=== PATIENT | male | born 1950 | race Two or more races ===

== ENCOUNTER 2017-10-08 22:16 | Inpatient (IN) | payer OTHER ==
[~2017-10-08] VITALS: Ht 177.8 cm; Wt 113.4 kg
[~2017-10-08 22:16] MED LIST: ALPRAZOLAM1 MG ORAL; METOPROLOL TART25 MG ORAL; METOPROLOL TART50 M1 ORAL; NIFEDIPINE XL30 M1 ORAL; PROTONIX40 MG ORAL; SIMVASTATIN5 MG ORAL; THEOPHYLLINE400 MG PO
[2017-10-08 22:40] VITALS: BP 120/81
[2017-10-08] MEDS ORDERED: Miralax 17gm pkt ORAL PRN (22:45)
[2017-10-08] MEDS ORDERED: Morphine Sulfate 2mg/ml Inj IVP PRN (22:45)
[2017-10-08] MEDS ORDERED: Albuterol/Ipratropium 3ml neb HHN PRN (22:45)
[2017-10-08] MEDS ORDERED: dilTIAZem HCl 25mg/5ml Inj IV PRN (22:45)
[2017-10-08] MEDS ORDERED: Ketorolac 30mg Inj IV PRN (22:45)
[2017-10-08] MEDS ORDERED: Solu-MEDROL 125mg Inj IVP ONE (22:45)
[2017-10-08] MEDS ORDERED: Nitroglycerin Subl 0.4mg tab SL PRN (22:45)
[2017-10-08] MEDS ORDERED: Enalaprilat 2.5mg/2ml Inj IV PRN (22:45)
--- NOTE | 2017-10-08 22:49 | Emergency Room Report ---
History of Present Illness General Chief Complaint: Dyspnea/Respdistress Source: Patient Present Illness HPI 67-year-old male with history of asthma, retention, hyperlipidemia p/w SOB for and week but worse in the last 2 days. SOB occurs both at rest and on exertion. + non productive cough. Denies chest pain. Patient has been using albuterol inhaler at home but cannot quantify the amount. Pt states that this episode is similar to other episodes of asthma exacerbation. Last time he was admitted was one year ago Denies fever, chills. Denies sick contacts or recent travel. Patient denies history of ICU admissions Allergies: Coded Allergies: No Known Allergies (Unverified , 02/28/16) Patient History Past Medical History: see triage record Past Surgical History: none Pertinent Family History: none Reviewed Nursing Documentation: PMH: Agreed; PSxH: Agreed Nursing Documentation-PMH Hx Cardiac Problems: Yes - heart attack 2012 Hx Hypertension: Yes Hx Asthma: Yes Hx Cancer: No Hx Gastrointestinal Problems: No Hx Neurological Problems: Yes Hx Cerebrovascular Accident: Yes - 8 YEARS AGO Review of Systems All Other Systems: negative except mentioned in HPI Physical Exam Vital Signs Date Time Temp Pulse Resp B/P (MAP) Pulse Ox O2 Delivery O2 Flow Rate FiO2 10/08/17 22:20 85 24 129/61 85 Room Air Sp02 EP Interpretation: reviewed, normal General Appearance: alert, GCS 15, non-toxic, moderate distress Head: normocephalic, atraumatic Eyes: bilateral eye normal inspection, bilateral eye PERRL, bilateral eye EOMI ENT: normal ENT inspection, normal pharynx, normal voice, moist mucus membranes Neck: normal inspection, full range of motion, supple Respiratory: respiratory distress, speaking full sentences, wheezing, expiration Cardiovascular #1: normal inspection, regular rate, rhythm, no edema, normal capillary refill Cardiovascular #2: 2+ radial (R), 2+ radial (L) Gastrointestinal: normal inspection, non tender, soft, non-distended, no guarding Genitourinary: no CVA tenderness Musculoskeletal: normal inspection, back normal, normal range of motion, non- tender Neurologic: normal inspection, alert, oriented x3, responsive, motor strength/ tone normal, sensory intact, normal gait, speech normal Psychiatric: normal inspection, judgement/insight normal, memory normal Skin: normal inspection, normal color, no rash, warm/dry, well hydrated, normal turgor Procedures Critical Care Time Critical Care Time 40 minutes of CC time 67-year-old male with shortness of breath Asthma exacerbation versus CHF versus ACS VS hypoxic and tachypneic PLAN: IV access, labs, nebulizer steroids magnesium Anticipate admission to Tele vs. A[facility]ENIO CC time also includes review of labs, review of EMR, discussion with family and paperwork from SNF, d/w hospitalist CC could include dosing of pressors, additional Abx CC time does not include procedures Medical Decision Making Diagnostic Impression: Primary Impression: Asthma exacerbation Additional Impressions: Pneumonia CHF exacerbation ER Course 67-year-old male with history of asthma p/w SOB DDX: Asthma exacerbation, pneumonia, upper respiratory infection/viral syndrome, ACS , CHF Plan: Labs, Combivent nebulizer treatment x 3, steroids, EKG, CXR Magnesium sulfate ER Course: Patient's respiratory status has been closely monitored in the ED. Patient has been treated with combivent x 3, solumedrol IV mag sulfate 40MG lasix Repeat lung auscultation reveals persistent wheezing although improved abx given for pneumonia Disposition: Patient will be admitted to telemetry D/W hospitalist Dr Holden Please note that this Emergency Department Report was dictated using Vivart[employer]wait[employer] waitress technology software, occasionally this can lead to erroneous entry secondary to interpretation by the dictation equipment. EKG Diagnostic Results EP Interpretation: Yes Rate: normal Rhythm: NSR ST Segments: Right bundle-branch block, multiple PVCs, no acute ST-T changes ASA given to patient: No Rhythm Strip EP Interpretation: Yes Rate: 70 Rhythm: NSR, no PVCs, no ectopy Chest X-ray CXR: Ordered: Yes 1 view Indication: SOB EP interpretation: Yes Interpretation:cardiomegaly, possible R sided infiltrate Impression: cardiomegaly, possible R sided infiltrate Electronically signed by Abraham Mars MD Laboratory Tests Test 10/08/17 23:00 White Blood Count 18.3 K/UL (4.8-10.8) H Red Blood Count 4.93 M/UL (4.70-6.10) Hemoglobin 13.7 G/DL (14.2-18.0) L Hematocrit 40.8 % (42.0-52.0) L Mean Corpuscular Volume 83 FL (80-99) Mean Corpuscular Hemoglobin 27.7 PG (27.0-31.0) Mean Corpuscular Hemoglobin Concent 33.5 G/DL (32.0-36.0) Red Cell Distribution Width 13.8 % (11.6-14.8) Platelet Count 224 K/UL (150-450) Mean Platelet Volume 8.4 FL (6.5-10.1) Neutrophils (%) (Auto) % (45.0-75.0) Lymphocytes (%) (Auto) % (20.0-45.0) Monocytes (%) (Auto) % (1.0-10.0) Eosinophils (%) (Auto) % (0.0-3.0) Basophils (%) (Auto) % (0.0-2.0) Differential Total Cells Counted 100 Neutrophils % (Manual) 8 % (45-75) L Lymphocytes % (Manual) 16 % (20-45) L Monocytes % (Manual) 73 % (1-10) H Eosinophils % (Manual) 0 % (0-3) Basophils % (Manual) 0 % (0-2) Band Neutrophils 3 % (0-8) Platelet Estimate Adequate Platelet Morphology Normal Sodium Level 140 MMOL/L (136-145) Potassium Level 3.6 MMOL/L (3.5-5.1) Chloride Level 105 MMOL/L (98-107) Carbon Dioxide Level 25 MMOL/L (21-32) Anion Gap 10 mmol/L (5-15) Blood Urea Nitrogen 22 mg/dL (7-18) H Creatinine 1.4 MG/DL (0.55-1.30) H Estimate Glomerular Filtration Rate 50.2 mL/min (>60) Glucose Level 100 MG/DL (74-106) Calcium Level 8.9 MG/DL (8.5-10.1) Total Bilirubin 0.8 MG/DL (0.2-1.0) Aspartate Amino Transferase (AST) 16 U/L (15-37) Alanine Aminotransferase (ALT) 17 U/L (12-78) Alkaline Phosphatase 124 U/L (46-116) H Troponin I 0.002 ng/mL (0.000-0.056) Pro-B-Type Natriuretic Peptide 4725 pg/mL (0-125) H Total Protein 8.3 G/DL (6.4-8.2) H Albumin 3.8 G/DL (3.4-5.0) Globulin 4.5 g/dL Albumin/Globulin Ratio 0.8 (1.0-2.7) L Last Vital Signs Date Time Temp Pulse Resp B/P (MAP) Pulse Ox O2 Delivery O2 Flow Rate FiO2 10/08/17 22:20 85 24 129/61 85 Room Air Disposition: ADMITTED INPATIENT Condition: Serious RetinoAbraham M.D. Oct 08, 2017 22:49
[2017-10-08] MEDS: Ipratropium 0.02% Inh Soln 2.5ml UD HHN SCH ×3 (22:54→23:28)
[2017-10-08] MEDS: Albuterol ud Inhalation HHN SCH ×3 (22:54→23:28)
[2017-10-08] MEDS ORDERED: BUMETANIDE1 MG ORAL (23:27)
[2017-10-08] MEDS ORDERED: LISINOPRIL2.5 MG ORAL (23:27)
[2017-10-08] MEDS ORDERED: VITAMIN D1000 UNI1 ORAL (23:27)
[2017-10-08] MEDS ORDERED: AMLODIPINE BES2.5 MG ORAL (23:27)
[2017-10-08] MEDS ORDERED: ASPIR 8181 MG ORAL (23:27)
[2017-10-08] MEDS ORDERED: CLOPIDOGREL75 MG ORAL (23:27)
[2017-10-08] MEDS ORDERED: ATORVASTATIN CA20 MG ORAL (23:27)
[2017-10-08] MEDS ORDERED: ALBUTEROL2.5 MG/3 M INH (23:27)
[2017-10-08 23:41] LABS: HEMATOCRIT 40.8 % (42.0-52.0); HEMOGLOBIN 13.7 G/DL (14.2-18.0); MEAN CORPUSCULAR VOLUME 83 FL (80-99); PLATELET COUNT 224 K/UL (150-450); RED BLOOD COUNT 4.93 M/UL (4.70-6.10); RED CELL DISTRIBUTION WIDTH 13.8 % (11.6-14.8); WHITE BLOOD COUNT 18.3 K/UL (4.8-10.8)
[2017-10-09] VITALS (9 sets, daily range): BP systolic 116–145; BP diastolic 41–89
[2017-10-09 00:05] LABS: ANION GAP 10 mmol/L (5-15); BLOOD UREA NITROGEN 22 mg/dL (7-18); CALCIUM 8.9 MG/DL (8.5-10.1); CARBON DIOXIDE 25 MMOL/L (21-32); CHLORIDE 105 MMOL/L (98-107); CREATININE 1.4 MG/DL (0.55-1.30); POTASSIUM 3.6 MMOL/L (3.5-5.1); SODIUM 140 MMOL/L (136-145)
[2017-10-09 00:18] LABS: ALANINE AMINOTRANSFERASE 17 U/L (12-78); ALBUMIN 3.8 G/DL (3.4-5.0); ALBUMIN/GLOBULIN RATIO 0.8 (1.0-2.7); ALKALINE PHOSPHATASE 124 U/L (46-116); ASPARTATE AMINO TRANSFERASE 16 U/L (15-37); BILIRUBIN,TOTAL 0.8 MG/DL (0.2-1.0)
[2017-10-09 05:52] LABS: APPEARANCE,URINE CLEAR; BILIRUBIN, URINE NEGATIVE (NEGATIVE); COLOR,URINE PALE YELLOW; GLUCOSE, URINE (UA) NEGATIVE (NEGATIVE); KETONES,URINE NEGATIVE (NEGATIVE); LEUKOCYTE ESTERASE ,URINE NEGATIVE (NEGATIVE); NITRITE,URINE NEGATIVE (NEGATIVE); PH,URINE 6 (4.5-8.0); PROTEIN,URINE 2+ (NEGATIVE); UROBILINOGEN,URINE NORMAL MG/DL (0.0-1.0)
[2017-10-09] MEDS ORDERED: Metoprolol 25mg tab ORAL SCH (06:30)
[2017-10-09] MEDS ORDERED: Heparin 5000 units/ml inj SUBQ SCH ×2 (09:00→21:00)
[2017-10-09] MEDS ORDERED: Aspirin Baby 81mg ORAL SCH (09:00)
--- NOTE | 2017-10-09 11:20 | Diagnostic Imaging Report ---
Indication: Shortness of breath Technique: One view of the chest Comparison: 02/28/2016 Findings: Heart is enlarged. There is generalized mild interstitial prominence. Previously demonstrated right basilar opacity is not evident currently. The pleural spaces are clear. No focal airspace consolidation Impression: Cardiomegaly Mild interstitial prominence, could indicate mild interstitial congestion
[2017-10-09 12:21] LABS: HEMATOCRIT 39.9 % (42.0-52.0); MEAN CORPUSCULAR VOLUME 83 FL (80-99); PLATELET COUNT 219 K/UL (150-450); RED BLOOD COUNT 4.83 M/UL (4.70-6.10); RED CELL DISTRIBUTION WIDTH 13.6 % (11.6-14.8)
--- NOTE | 2017-10-09 12:23 | Cardiology Report ---
APPROVED REPORT EXAM: Two-dimensional and M-mode echocardiogram with Doppler and color Doppler. INDICATION LV FUNCTION M-Mode DIMENSIONS IVSd1.9 (0.7-1.1cm)Left Atrium (MM)3.6 (1.6-4.0cm) LVDd6.3 (3.5-5.6cm)Aortic Root3.8 (2.0-3.7cm) PWd1.9 (0.7-1.1cm)Aortic Cusp Exc.1.4 (1.5-2.0cm) IVSs2.0 cm LVDs4.4 (2.5-4.0cm) PWs2.0 cm Technically difficult study due to poor acoustical windows and pts breathing . Left ventricular ejection fraction estimated to be 55-60%. No evidence of left ventricular hypertrophy. No evidence of pericardial effusion. Mild bi- atrial enlargement. Right cardiac chamber sizes are within normal limits. Focal aortic valve sclerosis with reduced cusp excursion. Thickened mitral valve leaflets with normal excursion. Mitral annulus and aortic root calcification. Pulmonic valve not well visualized. Normal tricuspid valve structure. IVC dilated at size 3.0 with slightly physiologic collapse. suggestive of increased RA pressure. A color flow and spectral Doppler study was performed and revealed: Mild aortic regurgitation. Peak aortic valve gradient of 25 mm Hg and a mean of 10 mmHg. Aortic valve area 0.9cm2 calculated by continuity equation. Mild to moderate mitral regurgitation . Left ventricular diastolic function can not determined due to arrhythmia . Trace tricuspid regurgitation. Tricuspid systolic velocities suggests peak right ventricular systolic pressure of 20 mmHg. No Pulmonic regurgitation present.
[2017-10-09 12:32] LABS: INR 1.2 (0.9-1.1)
[2017-10-09 12:43] LABS: CHOLESTEROL 103 MG/DL (< 200); HDL CHOLESTEROL 42 MG/DL (40-60); TRIGLYCERIDES 30 MG/DL (30-150)
--- NOTE | 2017-10-09 13:29 | Consultation ---
History of Present Illness General Date patient seen: Oct 09, 2017 Chief Complaint: Dyspnea/Respdistress Present Illness HPI 67-year-old male with history of asthma, COPD, HTN, presented to [facility] with CC of SOB for a week but worse in the last 2 days. SOB occurs both at rest and on exertion. + non productive cough. Denies chest pain. His CXR showed only cardiomegaly and mild interstitial edema. He is admitted to telemetry for further management. Allergies: Coded Allergies: No Known Allergies (Unverified , 02/28/16) Medication History Scheduled Amlodipine Besylate* (Amlodipine Besylate*), 2.5 MG ORAL DAILY, (Reported) Aspirin* (Aspir 81*), 81 MG ORAL DAILY, (Reported) Atorvastatin Calcium* (Atorvastatin Calcium*), 20 MG ORAL BEDTIME, (Reported) Bumetanide* (Bumetanide*), 1 MG ORAL DAILY, (Reported) Cholecalciferol (Vitamin D3)* (Vitamin D*), 5,000 UNITS ORAL DAILY, (Reported) Clopidogrel* (Clopidogrel*), 75 MG ORAL DAILY, (Reported) Lisinopril* (Lisinopril*), 2.5 MG ORAL DAILY, (Reported) Metoprolol Tartrate* (Metoprolol Tartrate*), 100 MG ORAL ACBREAKFAST, (Reported) Nifedipine Xl* (Nifedipine Xl*), 30 MG ORAL BEDTIME, (Reported) Pantoprazole* (Protonix*), 40 MG ORAL DAILY, (Reported) Simvastatin (Zocor), 80 MG ORAL BEDTIME, (Reported) Scheduled PRN Albuterol Sulfate* (Albuterol Sulfate Hhn*), 3 ML INH Q4H PRN for Shortness of Breath, (Reported) Alprazolam* (Xanax*), 1 MG ORAL BEDTIME PRN for Insomnia, (Reported) Discontinued Medications Metoprolol Tartrate* (Metoprolol Tartrate*), 50 MG ORAL BEDTIME, (Reported) Discontinued Reason: Medication dose changed Nifedipine Xl* (Nifedipine Xl*), 60 MG ORAL ACBREAKFAST, (Reported) Discontinued Reason: Medication dose changed Theophylline Anhydrous (Theophylline), 300 PO BID, (Reported) Discontinued Reason: MD discontinued med Patient History Healthcare decision maker SELF Resuscitation status Full Code Advanced Directive on File Past Medical/Surgical History Past Medical/Surgical History: (1) CAD (coronary artery disease) (2) HTN (hypertension) (3) COPD (chronic obstructive pulmonary disease) Review of Systems All Other Systems: negative except mentioned in HPI Physical Exam General Appearance: WD/WN Lines, tubes and drains: peripheral HEENT: normocephalic, atraumatic Neck: non-tender, normal alignment, supple Respiratory/Chest: chest wall non-tender, lungs clear, normal breath sounds Cardiovascular/Chest: normal peripheral pulses, normal rate, regular rhythm Abdomen: normal bowel sounds, non tender Genitourinary/Rectal: normal genital exam, normal rectal exam Extremities: normal range of motion, non-tender Skin Exam: normal pigmentation Neurologic: documentation writer II-XII grossly normal Last 24 Hour Vital Signs Date Time Temp Pulse Resp B/P (MAP) Pulse Ox O2 Delivery O2 Flow Rate FiO2 10/09/17 08:49 88 20 Nasal Cannula 3.0 10/09/17 08:00 68 10/09/17 08:00 97.7 69 18 116/41 93 Nasal Cannula 2.0 97.7 10/09/17 06:52 86 135/58 10/09/17 04:00 86 10/09/17 04:00 97.5 71 21 121/89 95 Nasal Cannula 2.0 97.5 10/09/17 03:20 84 10/09/17 02:45 98.2 84 29 125/74 96 Room Air 98.2 10/09/17 02:35 97.7 94 24 125/66 96 Nasal Cannula 2.0 97.7 10/09/17 02:30 98.2 84 29 125/74 96 Room Air 98.2 10/09/17 01:05 86 25 Room Air 10/09/17 01:00 98.1 86 25 131/72 97 Room Air 98.1 10/08/17 23:48 86 22 98 10/08/17 23:31 80 20 98 Nasal Cannula 3.0 32 10/08/17 23:29 80 20 98 Simple Mask 3.0 32 10/08/17 23:15 78 19 97 Nasal Cannula 3.0 32 10/08/17 23:13 73 18 98 Simple Mask 10/08/17 23:11 32 10/08/17 23:01 32 10/08/17 23:01 73 18 Nasal Cannula 3.0 32 4/5/18 23:01 73 18 94 Nasal Cannula 3.0 32 10/08/17 22:40 98.0 88 26 120/81 87 Non-Rebreather 15.0 98.0 10/08/17 22:40 88 26 Non-Rebreather 15.0 10/08/17 22:20 85 24 129/61 85 Room Air Intake and Output 10/08/17 10/09/17 19:00 07:00 Intake Total 100 ml Output Total 600 ml Balance -500 ml Intake IV Total 100 ml Output Urine Total 600 ml Laboratory Tests Test 10/08/17 23:00 10/09/17 02:45 10/09/17 12:00 White Blood Count 18.3 K/UL (4.8-10.8) H 20.0 K/UL (4.8-10.8) H Red Blood Count 4.93 M/UL (4.70-6.10) 4.83 M/UL (4.70-6.10) Hemoglobin 13.7 G/DL (14.2-18.0) L 13.0 G/DL (14.2-18.0) L Hematocrit 40.8 % (42.0-52.0) L 39.9 % (42.0-52.0) L Mean Corpuscular Volume 83 FL (80-99) 83 FL (80-99) Mean Corpuscular Hemoglobin 27.7 PG (27.0-31.0) 26.9 PG (27.0-31.0) L Mean Corpuscular Hemoglobin Concent 33.5 G/DL (32.0-36.0) 32.5 G/DL (32.0-36.0) Red Cell Distribution Width 13.8 % (11.6-14.8) 13.6 % (11.6-14.8) Platelet Count 224 K/UL (150-450) 219 K/UL (150-450) Mean Platelet Volume 8.4 FL (6.5-10.1) 9.1 FL (6.5-10.1) Neutrophils (%) (Auto) % (45.0-75.0) % (45.0-75.0) Lymphocytes (%) (Auto) % (20.0-45.0) % (20.0-45.0) Monocytes (%) (Auto) % (1.0-10.0) % (1.0-10.0) Eosinophils (%) (Auto) % (0.0-3.0) % (0.0-3.0) Basophils (%) (Auto) % (0.0-2.0) % (0.0-2.0) Differential Total Cells Counted 100 100 Neutrophils % (Manual) 8 % (45-75) L 87 % (45-75) H Lymphocytes % (Manual) 16 % (20-45) L 9 % (20-45) L Monocytes % (Manual) 73 % (1-10) H 4 % (1-10) Eosinophils % (Manual) 0 % (0-3) 0 % (0-3) Basophils % (Manual) 0 % (0-2) 0 % (0-2) Band Neutrophils 3 % (0-8) 0 % (0-8) Platelet Estimate Adequate Adequate Platelet Morphology Normal Normal Sodium Level 140 MMOL/L (136-145) Potassium Level 3.6 MMOL/L (3.5-5.1) Chloride Level 105 MMOL/L (98-107) Carbon Dioxide Level 25 MMOL/L (21-32) Anion Gap 10 mmol/L (5-15) Blood Urea Nitrogen 22 mg/dL (7-18) H Creatinine 1.4 MG/DL (0.55-1.30) H Estimat Glomerular Filtration Rate 50.2 mL/min (>60) Glucose Level 100 MG/DL (74-106) Calcium Level 8.9 MG/DL (8.5-10.1) Total Bilirubin 0.8 MG/DL (0.2-1.0) Aspartate Amino Transf (AST/SGOT) 16 U/L (15-37) Alanine Aminotransferase (ALT/SGPT) 17 U/L (12-78) Alkaline Phosphatase 124 U/L (46-116) H Troponin I 0.002 ng/mL (0.000-0.056) Pro-B-Type Natriuretic Peptide 4725 pg/mL (0-125) H Total Protein 8.3 G/DL (6.4-8.2) H Albumin 3.8 G/DL (3.4-5.0) Globulin 4.5 g/dL Albumin/Globulin Ratio 0.8 (1.0-2.7) L Urine Color Pale yellow Urine Appearance Clear Urine pH 6 (4.5-8.0) Urine Specific [place] 1.010 (1.005-1.035) Urine Protein 2+ (NEGATIVE) H Urine Glucose (UA) Negative (NEGATIVE) Urine Ketones Negative (NEGATIVE) Urine Occult Blood Negative (NEGATIVE) Urine Nitrite Negative (NEGATIVE) Urine Bilirubin Negative (NEGATIVE) Urine Urobilinogen Normal MG/DL (0.0-1.0) Urine Leukocyte Esterase Negative (NEGATIVE) Urine RBC 2-4 /HPF (0 - 0) H Urine WBC 0 /HPF (0 - 0) Urine Squamous Epithelial Cells None /LPF (NONE/OCC) Urine Bacteria Few /HPF (NONE) Red Blood Cell Morphology Normal Prothrombin Time 12.4 SEC (9.30-11.50) H Prothromb Time International Ratio 1.2 (0.9-1.1) H Activated Partial Thromboplast Time 29 SEC (23-33) C-Reactive Protein, Quantitative 6.5 mg/dL (0.00-0.90) H Triglycerides Level 30 MG/DL (30-150) Cholesterol Level 103 MG/DL (< 200) LDL Cholesterol 63 mg/dL (<100) HDL Cholesterol 42 MG/DL (40-60) Cholesterol/HDL Ratio 2.5 (3.3-4.4) L Thyroid Stimulating Hormone (TSH) 0.429 uiU/mL (0.358-3.740) Height (Feet): 5 Height (Inches): 10.00 Weight (Pounds): 250 Medications Current Medications Medications (Trade) Dose Ordered Sig/[place] Route PRN Reason Start Time Stop Time Status Last Admin Dose Admin Acetaminophen (Tylenol) 650 mg Q4H PRN ORAL FEVER 10/08/17 22:45 11/07/17 22:44 Albuterol/ Ipratropium (Albuterol/ Ipratropium) 3 ml EVERY 4 HOURS PRN HHN Shortness of Breath 10/08/17 22:45 10/13/17 22:44 Aspirin (ASA) 162 mg DAILY ORAL 10/09/17 09:00 11/08/17 08:59 10/09/17 08:45 Diltiazem HCl (Cardizem) 10 mg EVERY HOUR PRN IV heart rate more than 120, 10/08/17 22:45 11/07/17 22:44 Enalaprilat (Vasotec) 2.5 mg EVERY 6 HOURS PRN IV sbp more than 160 10/08/17 22:45 11/07/17 22:44 Heparin Sodium (Porcine) (Heparin 5000 units/ml) 5,000 units EVERY 12 HOURS SUBQ 10/09/17 09:00 11/08/17 08:59 10/09/17 08:49 Ketorolac Tromethamine (Toradol 30mg) 30 mg Q6HR PRN IV moderate pain ( 4-6) 10/08/17 22:45 10/13/17 22:44 Metoprolol Tartrate (Lopressor) 100 mg ACBREAKFAST ORAL 10/09/17 06:30 11/08/17 06:29 10/09/17 06:52 Morphine Sulfate (Morphine Sulfate) 2 mg EVERY 4 HOURS PRN IVP severe Pain (Pain Scale 7-10) 10/08/17 22:45 10/15/17 22:44 Nifedipine (Procardia XL) 30 mg BEDTIME ORAL 10/09/17 21:00 11/08/17 20:59 Nitroglycerin (Ntg) 0.4 mg PRN PRN SL Prn Chest Pain 10/08/17 22:45 11/07/17 22:44 Ondansetron HCl (Zofran) 4 mg Q6H PRN IVP Nausea & Vomiting 10/08/17 22:45 11/07/17 22:44 Polyethylene Glycol (Miralax) 17 gm DAILYPRN PRN ORAL Constipation 10/08/17 22:45 11/07/17 22:44 Temazepam (Restoril) 15 mg HSPRN PRN ORAL Insomnia 10/08/17 22:45 10/15/17 22:44 Assessment/Plan Problem List: (1) Acute respiratory failure ICD Codes: J96.00 - Acute respiratory failure, unspecified whether with hypoxia or hypercapnia SNOMED: 38747366 (2) Asthma exacerbation in COPD ICD Codes: J44.1 - Chronic obstructive pulmonary disease with (acute) exacerbation; J45.901 - Unspecified asthma with (acute) exacerbation SNOMED: 911004182 (3) COPD (chronic obstructive pulmonary disease) ICD Codes: J44.9 - Chronic obstructive pulmonary disease, unspecified SNOMED: 75663147 (4) CAD (coronary artery disease) ICD Codes: I25.10 - Atherosclerotic heart disease of [place] coronary artery without angina pectoris SNOMED: 58644379 (5) HTN (hypertension) ICD Codes: I10 - Essential (primary) hypertension SNOMED: 59800319 Assessment/Plan respiratory treatment check sputum check cultures titrate fio2 to sat of 92% echo cardiology evaluation dvt prophylaxis. monitor BP D/W dr Julio Cesar Sierra, pt stable to go to contracted facility. Dat Leroy MD Oct 09, 2017 13:29
[2017-10-09 13:40] LABS: CREATINE KINASE 84 U/L (26-308)
--- NOTE | 2017-10-09 15:30 | History & Physical ---
History and Physical History & Physicial job # [id number] Philip Holden MD Oct 09, 2017 15:30
--- NOTE | 2017-10-09 17:23 | Consultation ---
History of Present Illness General Date patient seen: Oct 09, 2017 Chief Complaint: Dyspnea/Respdistress Present Illness HPI 67-year-old male with history of asthma, COPD, HTN, presented to [facility] with CC of SOB for a week. the pt has hx of anxiety d/o. the pt has difficulty coping and sleeping. the pt has been on Xanax. Allergies: Coded Allergies: No Known Allergies (Unverified , 02/28/16) Medication History Scheduled Amlodipine Besylate* (Amlodipine Besylate*), 2.5 MG ORAL DAILY, (Reported) Aspirin* (Aspir 81*), 81 MG ORAL DAILY, (Reported) Atorvastatin Calcium* (Atorvastatin Calcium*), 20 MG ORAL BEDTIME, (Reported) Bumetanide* (Bumetanide*), 1 MG ORAL DAILY, (Reported) Cholecalciferol (Vitamin D3)* (Vitamin D*), 5,000 UNITS ORAL DAILY, (Reported) Clopidogrel* (Clopidogrel*), 75 MG ORAL DAILY, (Reported) Lisinopril* (Lisinopril*), 2.5 MG ORAL DAILY, (Reported) Metoprolol Tartrate* (Metoprolol Tartrate*), 100 MG ORAL ACBREAKFAST, (Reported) Nifedipine Xl* (Nifedipine Xl*), 30 MG ORAL BEDTIME, (Reported) Pantoprazole* (Protonix*), 40 MG ORAL DAILY, (Reported) Simvastatin (Zocor), 80 MG ORAL BEDTIME, (Reported) Scheduled PRN Albuterol Sulfate* (Albuterol Sulfate Hhn*), 3 ML INH Q4H PRN for Shortness of Breath, (Reported) Alprazolam* (Xanax*), 1 MG ORAL BEDTIME PRN for Insomnia, (Reported) Discontinued Medications Metoprolol Tartrate* (Metoprolol Tartrate*), 50 MG ORAL BEDTIME, (Reported) Discontinued Reason: Medication dose changed Nifedipine Xl* (Nifedipine Xl*), 60 MG ORAL ACBREAKFAST, (Reported) Discontinued Reason: Medication dose changed Theophylline Anhydrous (Theophylline), 300 PO BID, (Reported) Discontinued Reason: MD discontinued med Patient History Limited by: medical condition History Provided By: Patient, Medical Record, PMD Healthcare decision maker SELF Resuscitation status Full Code Advanced Directive on File Past Medical/Surgical History Past Medical/Surgical History: (1) Sepsis (2) Elevated troponin (3) Dyspnea (4) CHF exacerbation (5) Pneumonia (6) Asthma exacerbation (7) COPD (chronic obstructive pulmonary disease) (8) CAD (coronary artery disease) (9) HTN (hypertension) (10) Acute respiratory failure (11) Asthma exacerbation in COPD Review of Systems Psychiatric: Reports: prior hx, anxiety, depressed feelings, emotional problems Physical Exam General Appearance: no apparent distress, alert Neurologic: oriented x 3, responsive, depressed affect Last 24 Hour Vital Signs Date Time Temp Pulse Resp B/P (MAP) Pulse Ox O2 Delivery O2 Flow Rate FiO2 10/09/17 12:00 97.5 77 18 127/63 99 Room Air 97.5 10/09/17 12:00 72 10/09/17 08:49 88 20 Nasal Cannula 3.0 10/09/17 08:00 68 10/09/17 08:00 97.7 69 18 116/41 93 Nasal Cannula 2.0 97.7 10/09/17 06:52 86 135/58 10/09/17 04:00 86 10/09/17 04:00 97.5 71 21 121/89 95 Nasal Cannula 2.0 97.5 10/09/17 03:20 84 10/09/17 02:45 98.2 84 29 125/74 96 Room Air 98.2 10/09/17 02:35 97.7 94 24 125/66 96 Nasal Cannula 2.0 97.7 10/09/17 02:30 98.2 84 29 125/74 96 Room Air 98.2 10/09/17 01:05 86 25 Room Air 10/09/17 01:00 98.1 86 25 131/72 97 Room Air 98.1 10/08/17 23:48 86 22 98 10/08/17 23:31 80 20 98 Nasal Cannula 3.0 32 10/08/17 23:29 80 20 98 Simple Mask 3.0 32 10/08/17 23:15 78 19 97 Nasal Cannula 3.0 32 10/08/17 23:13 73 18 98 Simple Mask 10/08/17 23:11 32 10/08/17 23:01 32 10/08/17 23:01 73 18 Nasal Cannula 3.0 32 10/08/17 23:01 73 18 94 Nasal Cannula 3.0 32 10/08/17 22:40 98.0 88 26 120/81 87 Non-Rebreather 15.0 98.0 10/08/17 22:40 88 26 Non-Rebreather 15.0 10/08/17 22:20 85 24 129/61 85 Room Air Intake and Output 10/08/17 10/09/17 19:00 07:00 Intake Total 100 ml Output Total 600 ml Balance -500 ml IV Total 100 ml Output Urine Total 600 ml Laboratory Tests Test 10/08/17 23:00 10/09/17 02:45 10/09/17 12:00 White Blood Count 18.3 K/UL (4.8-10.8) H 20.0 K/UL (4.8-10.8) H Red Blood Count 4.93 M/UL (4.70-6.10) 4.83 M/UL (4.70-6.10) Hemoglobin 13.7 G/DL (14.2-18.0) L 13.0 G/DL (14.2-18.0) L Hematocrit 40.8 % (42.0-52.0) L 39.9 % (42.0-52.0) L Mean Corpuscular Volume 83 FL (80-99) 83 FL (80-99) Mean Corpuscular Hemoglobin 27.7 PG (27.0-31.0) 26.9 PG (27.0-31.0) L Mean Corpuscular Hemoglobin Concent 33.5 G/DL (32.0-36.0) 32.5 G/DL (32.0-36.0) Red Cell Distribution Width 13.8 % (11.6-14.8) 13.6 % (11.6-14.8) Platelet Count 224 K/UL (150-450) 219 K/UL (150-450) Mean Platelet Volume 8.4 FL (6.5-10.1) 9.1 FL (6.5-10.1) Neutrophils (%) (Auto) % (45.0-75.0) % (45.0-75.0) Lymphocytes (%) (Auto) % (20.0-45.0) % (20.0-45.0) Monocytes (%) (Auto) % (1.0-10.0) % (1.0-10.0) Eosinophils (%) (Auto) % (0.0-3.0) % (0.0-3.0) Basophils (%) (Auto) % (0.0-2.0) % (0.0-2.0) Differential Total Cells Counted 100 100 Neutrophils % (Manual) 8 % (45-75) L 87 % (45-75) H Lymphocytes % (Manual) 16 % (20-45) L 9 % (20-45) L Monocytes % (Manual) 73 % (1-10) H 4 % (1-10) Eosinophils % (Manual) 0 % (0-3) 0 % (0-3) Basophils % (Manual) 0 % (0-2) 0 % (0-2) Band Neutrophils 3 % (0-8) 0 % (0-8) Platelet Estimate Adequate Adequate Platelet Morphology Normal Normal Sodium Level 140 MMOL/L (136-145) Potassium Level 3.6 MMOL/L (3.5-5.1) Chloride Level 105 MMOL/L (98-107) Carbon Dioxide Level 25 MMOL/L (21-32) Anion Gap 10 mmol/L (5-15) Blood Urea Nitrogen 22 mg/dL (7-18) H Creatinine 1.4 MG/DL (0.55-1.30) H Estimat Glomerular Filtration Rate 50.2 mL/min (>60) Glucose Level 100 MG/DL (74-106) Calcium Level 8.9 MG/DL (8.5-10.1) Total Bilirubin 0.8 MG/DL (0.2-1.0) Aspartate Amino Transf (AST/SGOT) 16 U/L (15-37) Alanine Aminotransferase (ALT/SGPT) 17 U/L (12-78) Alkaline Phosphatase 124 U/L (46-116) H Troponin I 0.002 ng/mL (0.000-0.056) Pro-B-Type Natriuretic Peptide 4725 pg/mL (0-125) H Total Protein 8.3 G/DL (6.4-8.2) H Albumin 3.8 G/DL (3.4-5.0) Globulin 4.5 g/dL Albumin/Globulin Ratio 0.8 (1.0-2.7) L Urine Color Pale yellow Urine Appearance Clear Urine pH 6 (4.5-8.0) Urine Specific [place] 1.010 (1.005-1.035) Urine Protein 2+ (NEGATIVE) H Urine Glucose (UA) Negative (NEGATIVE) Urine Ketones Negative (NEGATIVE) Urine Occult Blood Negative (NEGATIVE) Urine Nitrite Negative (NEGATIVE) Urine Bilirubin Negative (NEGATIVE) Urine Urobilinogen Normal MG/DL (0.0-1.0) Urine Leukocyte Esterase Negative (NEGATIVE) Urine RBC 2-4 /HPF (0 - 0) H Urine WBC 0 /HPF (0 - 0) Urine Squamous Epithelial Cells None /LPF (NONE/OCC) Urine Bacteria Few /HPF (NONE) Red Blood Cell Morphology Normal Prothrombin Time 12.4 SEC (9.30-11.50) H Prothromb Time International Ratio 1.2 (0.9-1.1) H Activated Partial Thromboplast Time 29 SEC (23-33) Uric Acid 7.5 MG/DL (2.6-7.2) H Total Creatine Kinase 84 U/L (26-308) C-Reactive Protein, Quantitative 6.5 mg/dL (0.00-0.90) H Triglycerides Level 30 MG/DL (30-150) Cholesterol Level 103 MG/DL (< 200) LDL Cholesterol 63 mg/dL (<100) HDL Cholesterol 42 MG/DL (40-60) Cholesterol/HDL Ratio 2.5 (3.3-4.4) L Thyroid Stimulating Hormone (TSH) 0.429 uiU/mL (0.358-3.740) Height (Feet): 5 Height (Inches): 10.00 Weight (Pounds): 250 Medications Current Medications Medications (Trade) Dose Ordered Sig/[place] Route PRN Reason Start Time Stop Time Status Last Admin Dose Admin Acetaminophen (Tylenol) 650 mg Q4H PRN ORAL FEVER 10/08/17 22:45 11/07/17 22:44 Albuterol/ Ipratropium (Albuterol/ Ipratropium) 3 ml EVERY 4 HOURS PRN HHN Shortness of Breath 10/08/17 22:45 10/13/17 22:44 Aspirin (ASA) 162 mg DAILY ORAL 10/09/17 09:00 11/08/17 08:59 10/09/17 08:45 Diltiazem HCl (Cardizem) 10 mg EVERY HOUR PRN IV heart rate more than 120, 10/08/17 22:45 11/07/17 22:44 Enalaprilat (Vasotec) 2.5 mg EVERY 6 HOURS PRN IV sbp more than 160 10/08/17 22:45 11/07/17 22:44 Heparin Sodium (Porcine) (Heparin 5000 units/ml) 5,000 units EVERY 12 HOURS SUBQ 10/09/17 09:00 11/08/17 08:59 10/09/17 08:49 Levofloxacin 100 ml @ 100 mls/hr Q24H IVPB 10/10/17 01:00 10/17/17 00:59 Metoprolol Tartrate (Lopressor) 100 mg ACBREAKFAST ORAL 10/09/17 06:30 11/08/17 06:29 10/09/17 06:52 Morphine Sulfate (Morphine Sulfate) 2 mg EVERY 4 HOURS PRN IVP severe Pain (Pain Scale 7-10) 10/08/17 22:45 10/15/17 22:44 Nifedipine (Procardia XL) 30 mg BEDTIME ORAL 10/09/17 21:00 11/08/17 20:59 Nitroglycerin (Ntg) 0.4 mg PRN PRN SL Prn Chest Pain 10/08/17 22:45 11/07/17 22:44 Ondansetron HCl (Zofran) 4 mg Q6H PRN IVP Nausea & Vomiting 10/08/17 22:45 11/07/17 22:44 Polyethylene Glycol (Miralax) 17 gm DAILYPRN PRN ORAL Constipation 10/08/17 22:45 11/07/17 22:44 Temazepam (Restoril) 15 mg HSPRN PRN ORAL Insomnia 10/08/17 22:45 10/15/17 22:44 Assessment/Plan Status: stable, progressing Assessment/Plan anxiety d/o cont Xanax provided venecia/Mert Herrmann M.D. Oct 09, 2017 17:23
--- NOTE | 2017-10-09 18:30 | History and Physical Report ---
DATE OF ADMISSION: 10/09/2017 CHIEF COMPLAINT: Shortness of breath and wheezing. HISTORY OF PRESENT ILLNESS: This is a 67-year-old very delightful [place] gentleman with past medical history significant for asthma, hypertension, history of dyslipidemia, atherosclerotic heart disease with history of percutaneous transluminal coronary angioplasty with stent placement, and prior history of stroke about nine years ago, who has presented to the hospital complaining about shortness of breath that got progressively worsening over the past several days and shortness of breath associated with nonproductive cough. He complained about the chest discomfort, but no chest pain. His chest x-ray showed that the patient has a cardiomegaly with mild interstitial edema and subsequently after initial evaluation in the emergency room, the patient was admitted to the hospital with acute respiratory failure with acute asthma exacerbation and chronic obstructive pulmonary disease exacerbation with fluid overload. Shortly after initial evaluation, the patient was admitted to telemetry. PAST MEDICAL HISTORY/PAST SURGICAL HISTORY: As above. History of asthma, hypertension, dyslipidemia, atherosclerotic heart disease with coronary artery disease, status post percutaneous transluminal coronary angioplasty with stent placement, and prior history of stroke. MEDICATIONS AT HOME: Please refer to medication reconciliation. Including amlodipine 2.5 mg daily, aspirin 81 mg daily, atorvastatin 20 mg at bedtime, 1 mg daily, vitamin D 5000 IU daily, Plavix 75 mg daily, lisinopril 2.5 mg daily, metoprolol 100 mg daily, nifedipine XL 30 mg at night, Protonix 40 mg daily, and Zocor 80 mg at bedtime. ALLERGIES: No known drug allergies. SOCIAL HISTORY: The patient said that he has prior history of smoking while he was in 15 and 16. He lives with his family members, and kids. Denies any smoking, alcohol, or drugs at this time. FAMILY HISTORY: Asthma runs in the family. Denies any history of heart attack or heart disease in the family. Denies any history of cancer. REVIEW OF SYSTEMS: Mostly as above. Denies any dysuria, frequency, or hematuria. Complained about shortness of breath. Denies any hemoptysis or hematochezia. Denies any bright red blood per rectum. Denies any seizure activity. PHYSICAL EXAMINATION: VITAL SIGNS: On admission from the ER, temperature 97.5, pulse of 86, respirations 21, blood pressure 121/89, and repeat one was 135/58. GENERAL: The patient is awake, responsive, and in no acute distress. HEENT: Pupils are equal and reactive to light. Extraocular movements are intact. NECK: Supple. No JVD. LUNGS: Positive expiratory wheezes was noted in the posterior aspect of the lungs. HEART: Reveals S1 and S2. Distant heart sounds. No murmur. ABDOMEN: Soft, nondistended, and nontender. Mildly obese. EXTREMITIES: No cyanosis and clubbing. Trace edema. NEUROLOGIC: Cranial nerves II through XII are grossly intact. Motor is 5/5 in all extremities. Gait is intact. RECTAL/GENITOURINARY: Refused and deferred. PSYCHIATRIC: Mood and affect is intact. LABORATORY AND DIAGNOSTIC DATA: On admission, WBC of 18.3, hemoglobin 13, hematocrit 40, and platelets is 227,000. The patient's sodium 140, potassium 3.6, chloride 105, bicarb 25, BUN 22, and creatinine 1.4. Glucose is 100. Calcium is 8.9. Alkaline phosphatase is 127. First troponin 0.002. CRP is 6.5. ProBNP of 4725. Cholesterol is 103. PT of 12, INR 1.2, and PTT of 29. Urinalysis is +2 protein, otherwise unremarkable. The patient's chest x-ray noted to be in mild interstitial prominence, could indicate mild interstitial congestion. Echocardiogram was done, noted ejection fraction of 55% to 60% with no evidence of the left ventricular hypertrophy. No evidence of pericardial effusion. Mild biatrial enlargement. The patient's left ventricular diastolic function cannot be determined due to the arrhythmia. Trace tricuspid regurgitation. EKG was noted to be in sinus rhythm with frequent premature ventricular contractions and right bundle branch block. No ST elevation was noted. Abnormal EKG. ASSESSMENT: 1. Shortness of breath possibly due to the acute congestive heart failure on chronic as well as acute asthma exacerbation. 2. Dyslipidemia. 3. Morbid obesity. 4. Hypertension. 5. Dyslipidemia. 6. Atherosclerotic heart disease with a prior history of percutaneous transluminal coronary angioplasty with stents. 7. Cardiac arrhythmias. PLAN: Admit the patient to monitored unit. We will follow up with the broad-spectrum antibiotic Levaquin, nebulizer treatment, and we will follow up with Dr. Leroy, Pulmonary Critical Care consultation. We will resume home medication. Monitor laboratory including troponin. Code status Full Code. DVT prophylaxis with heparin subcutaneous. The patient was arranged for transport to the [facility] as per request by the insurance company. Philip Holden M.D. DR: BRAEDEN JOB#: [id number] CC:
--- NOTE | 2017-10-09 18:50 | Cardiology Progress Note ---
Assessment/Plan Assessment/Plan copd with exacerbation dm htn hx of cva with mobile plaque in oart 2008 abnorml peipheral smear mil to mod and MR echo noted ekg rbbb continue treatmne for copd exacerbation will follow agree with 1 low dose of lasix iv [id number] Objective Last 24 Hour Vital Signs Date Time Temp Pulse Resp B/P (MAP) Pulse Ox O2 Delivery O2 Flow Rate FiO2 10/09/17 16:00 97.5 73 18 128/75 99 Room Air 97.5 10/09/17 12:00 97.5 77 18 127/63 99 Room Air 97.5 10/09/17 12:00 72 10/09/17 08:49 88 20 Nasal Cannula 3.0 10/09/17 08:00 68 10/09/17 08:00 97.7 69 18 116/41 93 Nasal Cannula 2.0 97.7 10/09/17 06:52 86 135/58 10/09/17 04:00 86 10/09/17 04:00 97.5 71 21 121/89 95 Nasal Cannula 2.0 97.5 10/09/17 03:20 84 10/09/17 02:45 98.2 84 29 125/74 96 Room Air 98.2 10/09/17 02:35 97.7 94 24 125/66 96 Nasal Cannula 2.0 97.7 10/09/17 02:30 98.2 84 29 125/74 96 Room Air 98.2 10/09/17 01:05 86 25 Room Air 10/09/17 01:00 98.1 86 25 131/72 97 Room Air 98.1 10/08/17 23:48 86 22 98 10/08/17 23:31 80 20 98 Nasal Cannula 3.0 32 10/08/17 23:29 80 20 98 Simple Mask 3.0 32 10/08/17 23:15 78 19 97 Nasal Cannula 3.0 32 10/08/17 23:13 73 18 98 Simple Mask 10/08/17 23:11 32 10/08/17 23:01 32 10/08/17 23:01 73 18 Nasal Cannula 3.0 32 10/08/17 23:01 73 18 94 Nasal Cannula 3.0 32 10/08/17 22:40 98.0 88 26 120/81 87 Non-Rebreather 15.0 98.0 10/08/17 22:40 88 26 Non-Rebreather 15.0 10/08/17 22:20 85 24 129/61 85 Room Air Intake and Output 10/08/17 10/09/17 19:00 07:00 Intake Total 100 ml Output Total 600 ml Balance -500 ml IV Total 100 ml Output Urine Total 600 ml Laboratory Tests Test 10/08/17 23:00 10/09/17 02:45 10/09/17 12:00 White Blood Count 18.3 K/UL (4.8-10.8) H 20.0 K/UL (4.8-10.8) H Red Blood Count 4.93 M/UL (4.70-6.10) 4.83 M/UL (4.70-6.10) Hemoglobin 13.7 G/DL (14.2-18.0) L 13.0 G/DL (14.2-18.0) L Hematocrit 40.8 % (42.0-52.0) L 39.9 % (42.0-52.0) L Mean Corpuscular Volume 83 FL (80-99) 83 FL (80-99) Mean Corpuscular Hemoglobin 27.7 PG (27.0-31.0) 26.9 PG (27.0-31.0) L Mean Corpuscular Hemoglobin Concent 33.5 G/DL (32.0-36.0) 32.5 G/DL (32.0-36.0) Red Cell Distribution Width 13.8 % (11.6-14.8) 13.6 % (11.6-14.8) Platelet Count 224 K/UL (150-450) 219 K/UL (150-450) Mean Platelet Volume 8.4 FL (6.5-10.1) 9.1 FL (6.5-10.1) Neutrophils (%) (Auto) % (45.0-75.0) % (45.0-75.0) Lymphocytes (%) (Auto) % (20.0-45.0) % (20.0-45.0) Monocytes (%) (Auto) % (1.0-10.0) % (1.0-10.0) Eosinophils (%) (Auto) % (0.0-3.0) % (0.0-3.0) Basophils (%) (Auto) % (0.0-2.0) % (0.0-2.0) Differential Total Cells Counted 100 100 Neutrophils % (Manual) 8 % (45-75) L 87 % (45-75) H Lymphocytes % (Manual) 16 % (20-45) L 9 % (20-45) L Monocytes % (Manual) 73 % (1-10) H 4 % (1-10) Eosinophils % (Manual) 0 % (0-3) 0 % (0-3) Basophils % (Manual) 0 % (0-2) 0 % (0-2) Band Neutrophils 3 % (0-8) 0 % (0-8) Platelet Estimate Adequate Adequate Platelet Morphology Normal Normal Sodium Level 140 MMOL/L (136-145) Potassium Level 3.6 MMOL/L (3.5-5.1) Chloride Level 105 MMOL/L (98-107) Carbon Dioxide Level 25 MMOL/L (21-32) Anion Gap 10 mmol/L (5-15) Blood Urea Nitrogen 22 mg/dL (7-18) H Creatinine 1.4 MG/DL (0.55-1.30) H Estimat Glomerular Filtration Rate 50.2 mL/min (>60) Glucose Level 100 MG/DL (74-106) Calcium Level 8.9 MG/DL (8.5-10.1) Total Bilirubin 0.8 MG/DL (0.2-1.0) Aspartate Amino Transf (AST/SGOT) 16 U/L (15-37) Alanine Aminotransferase (ALT/SGPT) 17 U/L (12-78) Alkaline Phosphatase 124 U/L (46-116) H Troponin I 0.002 ng/mL (0.000-0.056) Pro-B-Type Natriuretic Peptide 4725 pg/mL (0-125) H Total Protein 8.3 G/DL (6.4-8.2) H Albumin 3.8 G/DL (3.4-5.0) Globulin 4.5 g/dL Albumin/Globulin Ratio 0.8 (1.0-2.7) L Urine Color Pale yellow Urine Appearance Clear Urine pH 6 (4.5-8.0) Urine Specific [place] 1.010 (1.005-1.035) Urine Protein 2+ (NEGATIVE) H Urine Glucose (UA) Negative (NEGATIVE) Urine Ketones Negative (NEGATIVE) Urine Occult Blood Negative (NEGATIVE) Urine Nitrite Negative (NEGATIVE) Urine Bilirubin Negative (NEGATIVE) Urine Urobilinogen Normal MG/DL (0.0-1.0) Urine Leukocyte Esterase Negative (NEGATIVE) Urine RBC 2-4 /HPF (0 - 0) H Urine WBC 0 /HPF (0 - 0) Urine Squamous Epithelial Cells None /LPF (NONE/OCC) Urine Bacteria Few /HPF (NONE) Red Blood Cell Morphology Normal Prothrombin Time 12.4 SEC (9.30-11.50) H Prothromb Time International Ratio 1.2 (0.9-1.1) H Activated Partial Thromboplast Time 29 SEC (23-33) Uric Acid 7.5 MG/DL (2.6-7.2) H Total Creatine Kinase 84 U/L (26-308) C-Reactive Protein, Quantitative 6.5 mg/dL (0.00-0.90) H Triglycerides Level 30 MG/DL (30-150) Cholesterol Level 103 MG/DL (< 200) LDL Cholesterol 63 mg/dL (<100) HDL Cholesterol 42 MG/DL (40-60) Cholesterol/HDL Ratio 2.5 (3.3-4.4) L Thyroid Stimulating Hormone (TSH) 0.429 uiU/mL (0.358-3.740) KIT MARTINI Oct 09, 2017 18:50
[2017-10-09] MEDS ORDERED: Morphine Sulfate 2mg/ml Inj IVP PRN (19:30)
[2017-10-09] MEDS ORDERED: Albuterol/Ipratropium 3ml neb HHN PRN (19:30)
[2017-10-09] MEDS ORDERED: Miralax 17gm pkt ORAL PRN (19:30)
[2017-10-09] MEDS ORDERED: Nitroglycerin Subl 0.4mg tab SL PRN (19:30)
[2017-10-09] MEDS ORDERED: dilTIAZem HCl 25mg/5ml Inj IV PRN (20:00)
--- NOTE | 2017-10-09 20:30 | Consultation ---
DATE OF CONSULTATION: 10/09/2017 NOTE: INCOMPLETE DICTATION CARDIOLOGY CONSULTATION CONSULTING PHYSICIAN: Juan Cook M.D. REFERRING PHYSICIANS: 1. Philip Holden M.D. 2. Dat Leroy M.D. REASON FOR REFERRAL: Shortness of breath. HISTORY OF PRESENT ILLNESS: The patient is a 67-year-old gentleman with history of multiple medical problems presented to the hospital because of increasing shortness of breath over the past week or two and now with very minimal movement, he apparently gets short of breath. Nevertheless, he presented to the emergency room here at [facility] and he has been admitted to the hospital. He has no chest pain with exertional shortness of breath. He uses one pillow at night. No palpitations. No lightheadedness on standing and he has significant amount of cough with white sputum production, just a lot of wheezing and shortness of breath. He was in the emergency room and was admitted to the hospital. Chest x-ray shows cardiomegaly and mild interstitial edema. PAST MEDICAL HISTORY: Positive for history of multiple problems. 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 ALLERGIES: He is not allergic to any medication. SOCIAL HISTORY: He used to smoke when he was a young child. He states he does not drink alcoholic beverages. He lives at home with family members. REVIEW OF SYSTEMS: GASTROINTESTINAL: He has had some nausea and vomiting after walking to the bathroom, but because of shortness of breath. Constipation is present. No bloody or black stool. GENITOURINARY: Negative. PULMONARY: Positive for coughing and sputum production, white and wheezing. CONSTITUTIONAL: No fevers, chills, or night sweats. NEUROLOGIC: Weakness in the left side after a stroke. PHYSICAL EXAMINATION: GENERAL: Shows to be elderly gentleman and overweight. VITAL SIGNS: Blood pressure anywhere between 116/41 to 135/58 with heart rate of 73 and temperature 97.5. NECK: Supple. No jugular venous distention. LUNGS: Shows inspiratory and expiratory wheezes. There is a slow expiration. CARDIAC: Regular rate and rhythm. No heaves, thrills, or gallops noted. ABDOMEN: Soft and nontender. Positive bowel sounds. EXTREMITIES: There is no clubbing, cyanosis, or edema. NEUROLOGICAL: He is awake, alert, and responsive. Moves all four extremities. LABORATORY AND DIAGNOSTIC DATA: White count of 20, up from 18.2 with hemoglobin 13 and platelet count of 219,000, 87 polys, and 9 lymphs. Reportedly his laboratories yesterday showed 63% monocytes, but that is not completely clear and on repeat, this was not the case. Sodium 140, potassium 3.6, chloride 105, bicarb 25, BUN of 22, creatinine 1.4, and a glucose of 100. Uric acid of 7.5. Troponin 0.02. ProBNP of 4725. CRP of 6.5. Total cholesterol 103 with LDL of 63 and HDL of 42. TSH is 0.49. INR is 1.0 and a PTT of 29. Urinalysis is 0 to 2 wbc's. Chest x-ray shows interstitial prominence and echocardiogram reportedly showed ejection fraction 55% to 60%, technically difficult study, mild aortic regurgitation, peak aortic valve gradient of 25 and mean at 10, [id number] mitral regurgitation, and pulmonary artery systolic pressure of 20. The patient has had an electrocardiogram performed that showed premature ventricular complexes with sinus rhythm. Right bundle-branch conduction defect is noted. No significant ST or T-wave abnormalities. ASSESSMENT AND PLAN: 1. Chronic obstructive pulmonary disease with exacerbation. 2. History of systemic hypertension. 3. History of coronary artery disease, status post myocardial infarction previously. 4. History of previous cerebrovascular accident. 5. History of a mobile plaque in the descending aorta and aortic arch. 6. Hyperlipidemia. 7. Hypertension. 8. Diabetes mellitus. 9. Abnormal peripheral smear. 10. [id number] aortic stenosis. 11. [id number] mitral regurgitation. Juan Cook M.D. DR: TOBY JOB#: [id number] CC:
--- NOTE | 2017-10-10 07:51 | Discharge Summary ---
Discharge Summary Discharge Summary Discharge Summary DATE OF ADMISSION: 10/09/2017 DATE OF DISCHARGE: 10/09/2017 REASON FOR ADMISSION: 67-year-old old male with past medical history significant for asthma, hypertension, dyslipidemia, atherosclerotic heart disease with history of percutaneous transluminal coronary angioplasty with stent placement, history of stroke about 9 years ago, presented to the hospital complaining of shortness of breath, that was getting progressively worse over the past several days. Shortness of breath was associated with nonproductive cough. Patient verbalized chest discomfort but no chest pain. Chest x-ray revealed cardiomegaly with mild interstitial edema. ProBNP was 4725. Troponin was negative. Patient was admitted with diagnosis of f acute respiratory failure, asthma/ COPD exacerbation, fluid overload. HOSPITAL COURSE: Patient admitted to telemetry floor. Pulmonology, cardiology and psychiatric consults were requested. Supplemental oxygen provided as needed to keep pulse oximetry above 92%. Nebulizing treatment with bronchodilators was provided. One dose of intravenous steroid was given in the emergency department. Patient was started on empiric antibiotic. Patient was unable to provide sputum specimen since cough was not productive. Home medications were resumed. Hydro Station Operator closely followed. Cardiology consult requested. Echocardiogram revealed ejection fraction of 55- 60%, no evidence of left ventricular hypertrophy, no evidence of pericardial effusion. Right ventricular systolic pressure of 20. [id number] mitral regurgitation. One dose of Lasix was given with close monitoring of volumes. Blood pressure was managed with beta porsha and calcium channel porsha, and remained stable. Patient was continued on aspirin. Lipid panel was within normal limits. DVT prophylaxis provided. Psychiatrist seen and evaluated the patient. Psychiatrist diagnosed the patient with anxiety disorder. Anxiolytics provided as needed. Patient subsequently was transferred to [facility] for insurance purposes. FINAL DIAGNOSES: Acute respiratory failure ( likely due to CHF and COPD exacerbation). Acute asthma/COPD exacerbation. Acute CHF exacerbation Hypertension. Atherosclerotic heart disease with a history of PTCA with stents. Morbid obesity. History of CVA. [id number] mitral regurgitation. Anxiety disorder. DISCHARGE MEDICATIONS: See Medication Reconciliation list. DISCHARGE INSTRUCTIONS: Patient was discharged to [facility] for insurance purposes I have been assigned to dictate discharge summary for this account. I was not involved in the patient's management. Sandy Hilario NP ([place]) Oct 10, 2017 07:51
[2017-10-10] MEDS ORDERED: Aspirin Baby 81mg ORAL SCH (09:00)
[2017-10-10] MEDS ORDERED: Enalaprilat 2.5mg/2ml Inj IV PRN (19:30)
== END 2017-10-09 23:55 | disposition short-term general hospital (02) | DRG 189 ==
LOC: EMR 10-09 00:50 → 2E 10-09 00:51 → EDBEDREQ 10-09 01:04 → 2E 10-09 05:06 → 4W 10-09 20:12
DX: J96.00 Acute respiratory failure, unspecified whether with hypoxia or hypercapnia (principal); J44.1 Chronic obstructive pulmonary disease with (acute) exacerbation; I11.0 Hypertensive heart disease with heart failure; I50.9 Heart failure, unspecified; I49.3 Ventricular premature depolarization; I34.0 Nonrheumatic mitral (valve) insufficiency; I35.0 Nonrheumatic aortic (valve) stenosis; I25.10 Atherosclerotic heart disease of native coronary artery without angina pectoris; Z95.5 Presence of coronary angioplasty implant and graft; E66.01 Morbid (severe) obesity due to excess calories; Z86.73 Personal history of transient ischemic attack (TIA), and cerebral infarction without residual deficits; F41.9 Anxiety disorder, unspecified; I25.2 Old myocardial infarction; E11.9 Type 2 diabetes mellitus without complications; I45.10 Unspecified right bundle-branch block
CPT/HCPCS: 36415; 71045; 80053; 80061; 81003; 82550; 83880; 84443; 84484; 84550; 85007; 85025; 85610; 85730; 86140; 93005; 93306; 94640; 94664; 99285; J8499

== ENCOUNTER 2018-04-06 15:06 | Inpatient (IN) | payer OTHER ==
[~2018-04-06] VITALS: Ht 177.8 cm; Wt 117.5 kg
[~2018-04-06 15:06] MED LIST changes: +ALBUTEROL2.5 MG/3 M INH; +AMLODIPINE BES2.5 MG ORAL; +ASPIR 8181 MG ORAL; +ATORVASTATIN CA20 MG ORAL; +BUMETANIDE1 MG ORAL; +CLOPIDOGREL75 MG ORAL; +LISINOPRIL2.5 MG ORAL; +VITAMIN D1000 UNI1 ORAL
[2018-04-06] MEDS ORDERED: Ipratropium 0.02% Inh Soln 2.5ml UD HHN ONE (15:45)
[2018-04-06] MEDS ORDERED: Albuterol ud Inhalation HHN ONE (15:45)
--- NOTE | 2018-04-06 15:58 | Emergency Room Report ---
History of Present Illness General Chief Complaint: General Complaint Source: Patient Present Illness HPI Patient has history of CHF. Patient has been admitted in the hospital for CHF before. Patient presents emergency Department worsening shortness of breath over last 3-4 days. Patient has orthopnea and significant bilateral lower chimney swelling. Patient denies any chest pain. States that he's been using his albuterol without much improvement. Patient's thinks the patient needs home oxygen. No other complaint or noted. Symptoms noted to be severe. Patient apparently went to Dr. Kinney's office and then was transferred here via patient's is of severe he patient's illness. No other complaint are noted.No other modifying factors. No other associated signs and symptoms. No other complaints were noted. Allergies: Coded Allergies: No Known Allergies (Unverified , 02/28/16) Patient History Past Medical History: [place], CAD, CHF, COPD Past Surgical History: none Social History: Denies: smoking, alcohol use, drug use Reviewed Nursing Documentation: PMH: Agreed; PSxH: Agreed Nursing Documentation-PMH Hx Cardiac Problems: Yes - heart attack 2012 Hx Hypertension: Yes Hx Asthma: Yes Hx Cancer: No Hx Gastrointestinal Problems: No Hx Neurological Problems: Yes Hx Cerebrovascular Accident: Yes - 8 YEARS AGO Review of Systems All Other Systems: negative except mentioned in HPI Physical Exam Vital Signs Date Time Temp Pulse Resp B/P (MAP) Pulse Ox O2 Delivery O2 Flow Rate FiO2 04/06/18 15:17 Room Air Sp02 EP Interpretation: reviewed, normal General Appearance: alert, moderate distress, obese Head: atraumatic Eyes: bilateral eye normal inspection ENT: normal ENT inspection, hearing grossly normal, normal voice Neck: normal inspection, full range of motion, supple, no bony tend Respiratory: respiratory distress, decreased breath sounds, accessory muscle use, crackles - Lower lung higgins Cardiovascular #1: regular rate, rhythm, edema - 3+ pitting edema to mid thigh Gastrointestinal: normal inspection, normal bowel sounds, non tender, soft, no guarding, no hernia Genitourinary: no CVA tenderness Musculoskeletal: normal inspection, back normal Neurologic: normal inspection, alert, responsive, speech normal Psychiatric: normal inspection, judgement/insight normal, depressed affect, anxious Skin: normal inspection, normal color, no rash Procedures Critical Care Time Critical Care Time Patient had a critical medical condition which untreated could potentially result in life or limb threatening injury. Total critical care time excluding procedures was approximately 45 minutes. Medical Decision Making Diagnostic Impression: Primary Impression: COPD (chronic obstructive pulmonary disease) Additional Impressions: Acute CHF Fluid overload Anasarca Respiratory distress ER Course Patient presents emergency department today complaining of shortness of breath. Differential diagnoses include acute pneumonia, CHF, acute coronary syndrome, pneumothorax, asthma, COPD flare, just to name a few. Given the severity of the patient's presentation I felt this is a highly complex patient. This patient required extensive workup. atient laboratory workup shows evidence CHF. Chest x-ray shows evidence of CHF as well. Patient was given Lasix. With some improvement. Given severe he patient's mentation felt the patient quite admission for further treatment. Unfortunately because patient hypoxia patient's unstable for transfer. Patient will be admitted for further treatment here. Labs Test 04/06/18 15:50 04/06/18 16:40 White Blood Count 12.6 K/UL (4.8-10.8) Red Blood Count 4.13 M/UL (4.70-6.10) Hemoglobin 11.6 G/DL (14.2-18.0) Hematocrit 35.6 % (42.0-52.0) Mean Corpuscular Volume 86 FL (80-99) Mean Corpuscular Hemoglobin 28.2 PG (27.0-31.0) Mean Corpuscular Hemoglobin Concent 32.7 G/DL (32.0-36.0) Red Cell Distribution Width 15.9 % (11.6-14.8) Platelet Count 176 K/UL (150-450) Mean Platelet Volume 8.8 FL (6.5-10.1) Neutrophils (%) (Auto) 52.1 % (45.0-75.0) Lymphocytes (%) (Auto) 21.4 % (20.0-45.0) Monocytes (%) (Auto) 8.8 % (1.0-10.0) Eosinophils (%) (Auto) 15.9 % (0.0-3.0) Basophils (%) (Auto) 1.8 % (0.0-2.0) Prothrombin Time 13.1 SEC (9.30-11.50) Prothromb Time International Ratio 1.3 (0.9-1.1) Activated Partial Thromboplast Time 29 SEC (23-33) Sodium Level 142 MMOL/L (136-145) Potassium Level 3.8 MMOL/L (3.5-5.1) Chloride Level 108 MMOL/L (98-107) Carbon Dioxide Level 24 MMOL/L (21-32) Anion Gap 10 mmol/L (5-15) Blood Urea Nitrogen 38 mg/dL (7-18) Creatinine 1.6 MG/DL (0.55-1.30) Estimat Glomerular Filtration Rate 42.9 mL/min (>60) Glucose Level 88 MG/DL (74-106) Calcium Level 9.2 MG/DL (8.5-10.1) Total Bilirubin 1.3 MG/DL (0.2-1.0) Direct Bilirubin 0.4 MG/DL (0.0-0.3) Aspartate Amino Transf (AST/SGOT) 21 U/L (15-37) Alanine Aminotransferase (ALT/SGPT) 24 U/L (12-78) Alkaline Phosphatase 122 U/L (46-116) Creatine Kinase MB 1.2 NG/ML (0.0-3.6) Troponin I 0.038 ng/mL (0.000-0.056) Pro-B-Type Natriuretic Peptide 7332 pg/mL (0-125) Total Protein 8.2 G/DL (6.4-8.2) Albumin 3.6 G/DL (3.4-5.0) Globulin 4.6 g/dL Albumin/Globulin Ratio 0.8 (1.0-2.7) Lipase 261 U/L (73-393) Urine Color Isabella Urine Appearance Slightly cloudy Urine pH 6 (4.5-8.0) Urine Specific [place] 1.010 (1.005-1.035) Urine Protein 3+ (NEGATIVE) Urine Glucose (UA) Negative (NEGATIVE) Urine Ketones Negative (NEGATIVE) Urine Blood Negative (NEGATIVE) Urine Nitrite Negative (NEGATIVE) Urine Bilirubin Negative (NEGATIVE) Urine Ictotest Negative (NEGATIVE) Urine Urobilinogen 1 MG/DL (0.0-1.0) Urine Leukocyte Esterase Negative (NEGATIVE) Urine RBC 0-2 /HPF (0 - 0) Urine WBC 0 /HPF (0 - 0) Urine Squamous Epithelial Cells Few /LPF (NONE/OCC) Urine Bacteria Occasional /HPF (NONE) Urine Mucus Many /LPF (NONE/OCC) EKG Diagnostic Results Rate: normal Rhythm: NSR ST Segments: other - Right bundle branch block, multiple PVCs Rhythm Strip Diag. Results EP Interpretation: yes Rate: 70 Rhythm: NSR, no ectopy, other - Multiple PVCs, right bundle branch block Chest X-Ray Diagnostic Results Chest X-Ray Diagnostic Results : Chest X-Ray Ordered: Yes # of Views/Limited/Complete: 1 View Indication: Shortness of Breath EP Interpretation: No Impression: Other - Acute CHF Last Vital Signs Date Time Temp Pulse Resp B/P (MAP) Pulse Ox O2 Delivery O2 Flow Rate FiO2 04/06/18 15:17 Room Air Status: improved Disposition: ADMITTED INPATIENT Condition: Serious Dewayne Mcnair MD Apr 06, 2018 15:58
[2018-04-06 16:35] LABS: BASOPHILS % (AUTO) 1.8 % (0.0-2.0); EOSINOPHILS % (AUTO) 15.9 % (0.0-3.0); HEMATOCRIT 35.6 % (42.0-52.0); HEMOGLOBIN 11.6 G/DL (14.2-18.0); LYMPHOCYTES % (AUTO) 21.4 % (20.0-45.0); MEAN CORPUSCULAR VOLUME 86 FL (80-99); MONOCYTES % (AUTO) 8.8 % (1.0-10.0); NEUTROPHILS % (AUTO) 52.1 % (45.0-75.0); PLATELET COUNT 176 K/UL (150-450); RED BLOOD COUNT 4.13 M/UL (4.70-6.10); RED CELL DISTRIBUTION WIDTH 15.9 % (11.6-14.8); WHITE BLOOD COUNT 12.6 K/UL (4.8-10.8)
[2018-04-06 16:42] LABS: ANION GAP 10 mmol/L (5-15); BLOOD UREA NITROGEN 38 mg/dL (7-18); CALCIUM 9.2 MG/DL (8.5-10.1); CARBON DIOXIDE 24 MMOL/L (21-32); CHLORIDE 108 MMOL/L (98-107); CREATININE 1.6 MG/DL (0.55-1.30); POTASSIUM 3.8 MMOL/L (3.5-5.1); SODIUM 142 MMOL/L (136-145)
[2018-04-06 16:44] LABS: INR 1.3 (0.9-1.1)
[2018-04-06 16:49] LABS: APPEARANCE,URINE SLIGHTLY CLOUDY; BILIRUBIN, URINE NEGATIVE (NEGATIVE); COLOR,URINE AMBER; GLUCOSE, URINE (UA) NEGATIVE (NEGATIVE); KETONES,URINE NEGATIVE (NEGATIVE); LEUKOCYTE ESTERASE ,URINE NEGATIVE (NEGATIVE); NITRITE,URINE NEGATIVE (NEGATIVE); PH,URINE 6 (4.5-8.0); PROTEIN,URINE 3+ (NEGATIVE); UROBILINOGEN,URINE 1 MG/DL (0.0-1.0)
[2018-04-06 16:57] VITALS: BP 101/64
[2018-04-06] MEDS ORDERED: METOPROLOL TAR100 M1 ORAL (16:57)
[2018-04-06] MEDS ORDERED: ADALAT20 MG ORAL (16:57)
[2018-04-06] MEDS ORDERED: AMLODIPINE BESY10 MG ORAL (16:57)
[2018-04-06 16:59] LABS: ALANINE AMINOTRANSFERASE 24 U/L (12-78); ALBUMIN 3.6 G/DL (3.4-5.0); ALBUMIN/GLOBULIN RATIO 0.8 (1.0-2.7); ALKALINE PHOSPHATASE 122 U/L (46-116); ASPARTATE AMINO TRANSFERASE 21 U/L (15-37); BILIRUBIN,TOTAL 1.3 MG/DL (0.2-1.0); CKMB 1.2 NG/ML (0.0-3.6)
[2018-04-06 17:01] LABS: BILIRUBIN,DIRECT 0.4 MG/DL (0.0-0.3)
--- NOTE | 2018-04-06 17:27 | Diagnostic Imaging Report ---
Indication: Cough Technique: One view of the chest Comparison: 10/09/2017 Findings: Heart is enlarged. There is a left-sided pleural effusion now present. There is also blunting of right costophrenic sulcus, consistent with a small right pleural effusion Interstitial edema is demonstrated, appearing similar in extent to the prior exam. Azygos lobe and fissure incidentally noted. Impression: Cardiomegaly, with interstitial edema and bilateral left greater than right pleural effusions
[2018-04-06 18:32] VITALS: BP 126/59
[2018-04-06 19:35] VITALS: BP 114/76
[2018-04-06 20:00] VITALS: BP 146/72
[2018-04-06] MEDS ORDERED: Miralax 17gm pkt ORAL PRN (20:30)
[2018-04-06] MEDS ORDERED: Albuterol/Ipratropium 3ml neb HHN PRN (20:30)
[2018-04-06] MEDS: Heparin 5000 units/ml inj SUBQ SCH (20:52)
[2018-04-07] VITALS: BP 134/67
[2018-04-07 04:00] VITALS: BP 130/61
[2018-04-07 07:00] LABS: BASOPHILS % (AUTO) 0.8 % (0.0-2.0); EOSINOPHILS % (AUTO) 10.9 % (0.0-3.0); HEMATOCRIT 37.1 % (42.0-52.0); HEMOGLOBIN 11.5 G/DL (14.2-18.0); LYMPHOCYTES % (AUTO) 25.2 % (20.0-45.0); MEAN CORPUSCULAR VOLUME 85 FL (80-99); MONOCYTES % (AUTO) 9.4 % (1.0-10.0); NEUTROPHILS % (AUTO) 53.7 % (45.0-75.0); PLATELET COUNT 177 K/UL (150-450); RED BLOOD COUNT 4.39 M/UL (4.70-6.10); WHITE BLOOD COUNT 11.5 K/UL (4.8-10.8)
[2018-04-07 07:20] LABS: ALBUMIN 3.6 G/DL (3.4-5.0); ANION GAP 8 mmol/L (5-15); BLOOD UREA NITROGEN 34 mg/dL (7-18); CALCIUM 9.4 MG/DL (8.5-10.1); CARBON DIOXIDE 30 MMOL/L (21-32); CHLORIDE 108 MMOL/L (98-107); CREATININE 1.6 MG/DL (0.55-1.30); PHOSPHORUS 4.4 MG/DL (2.5-4.9); POTASSIUM 3.5 MMOL/L (3.5-5.1); SODIUM 146 MMOL/L (136-145)
[2018-04-07 08:00] VITALS: BP 119/63
[2018-04-07] MEDS: Heparin 5000 units/ml inj SUBQ SCH ×2 (09:00→21:00)
[2018-04-07 12:00] VITALS: BP 130/82
--- NOTE | 2018-04-07 12:05 | Cardiac Electrophysiology PN ---
Subjective Subjective [id number] Objective Last 24 Hour Vital Signs Date Time Temp Pulse Resp B/P (MAP) Pulse Ox O2 Delivery O2 Flow Rate FiO2 04/07/18 09:18 64 119/63 04/07/18 08:00 98.2 84 20 119/63 (81) 94 98.2 04/07/18 08:00 98.2 84 20 119/63 (81) 94 98.2 04/07/18 08:00 92 04/07/18 07:58 71 18 Nasal Cannula 3.0 32 04/07/18 07:58 Nasal Cannula 3.0 32 04/07/18 07:58 94 Nasal Cannula 3.0 32 04/07/18 04:00 97.4 73 18 130/61 (84) 95 97.4 04/07/18 04:00 73 04/07/18 00:00 97.7 76 20 134/67 (89) 92 97.7 04/07/18 00:00 77 04/06/18 22:54 Nasal Cannula 2.0 28 04/06/18 22:53 96 Nasal Cannula 2.0 28 04/06/18 22:38 Nasal Cannula 2.0 04/06/18 20:51 69 146/72 04/06/18 20:45 75 04/06/18 20:00 97.4 75 19 146/72 (96) 90 97.4 04/06/18 19:35 97.8 77 18 126/59 98 Nasal Cannula 21 97.8 04/06/18 19:35 97.8 77 19 114/76 96 Nasal Cannula 2.0 97.8 04/06/18 18:32 97.8 75 18 126/59 98 Nasal Cannula 21 97.8 04/06/18 16:57 97.8 81 18 101/64 98 Room Air 21 97.8 04/06/18 16:11 80 18 98 Room Air 21 04/06/18 15:55 75 16 Room Air 21 04/06/18 15:55 75 16 92 Room Air 21 04/06/18 15:55 21 04/06/18 15:17 Room Air Intake and Output 04/06/18 04/07/18 19:00 07:00 Intake Total 60 ml Output Total 3500 ml Balance -3440 ml Intake Oral 60 ml Output Urine Total 3500 ml # Voids 1 Laboratory Tests Test 04/06/18 15:50 04/06/18 16:40 04/07/18 05:10 White Blood Count 12.6 K/UL (4.8-10.8) H 11.5 K/UL (4.8-10.8) H Red Blood Count 4.13 M/UL (4.70-6.10) L 4.39 M/UL (4.70-6.10) L Hemoglobin 11.6 G/DL (14.2-18.0) L 11.5 G/DL (14.2-18.0) L Hematocrit 35.6 % (42.0-52.0) L 37.1 % (42.0-52.0) L Mean Corpuscular Volume 86 FL (80-99) 85 FL (80-99) Mean Corpuscular Hemoglobin 28.2 PG (27.0-31.0) 26.2 PG (27.0-31.0) L Mean Corpuscular Hemoglobin Concent 32.7 G/DL (32.0-36.0) 31.0 G/DL (32.0-36.0) L Red Cell Distribution Width 15.9 % (11.6-14.8) H 16.0 % (11.6-14.8) H Platelet Count 176 K/UL (150-450) 177 K/UL (150-450) Mean Platelet Volume 8.8 FL (6.5-10.1) 10.1 FL (6.5-10.1) Neutrophils (%) (Auto) 52.1 % (45.0-75.0) 53.7 % (45.0-75.0) Lymphocytes (%) (Auto) 21.4 % (20.0-45.0) 25.2 % (20.0-45.0) Monocytes (%) (Auto) 8.8 % (1.0-10.0) 9.4 % (1.0-10.0) Eosinophils (%) (Auto) 15.9 % (0.0-3.0) H 10.9 % (0.0-3.0) H Basophils (%) (Auto) 1.8 % (0.0-2.0) 0.8 % (0.0-2.0) Prothrombin Time 13.1 SEC (9.30-11.50) H Prothromb Time International Ratio 1.3 (0.9-1.1) H Activated Partial Thromboplast Time 29 SEC (23-33) Sodium Level 142 MMOL/L (136-145) 146 MMOL/L (136-145) H Potassium Level 3.8 MMOL/L (3.5-5.1) 3.5 MMOL/L (3.5-5.1) Chloride Level 108 MMOL/L (98-107) H 108 MMOL/L (98-107) H Carbon Dioxide Level 24 MMOL/L (21-32) 30 MMOL/L (21-32) Anion Gap 10 mmol/L (5-15) 8 mmol/L (5-15) Blood Urea Nitrogen 38 mg/dL (7-18) H 34 mg/dL (7-18) H Creatinine 1.6 MG/DL (0.55-1.30) H 1.6 MG/DL (0.55-1.30) H Estimat Glomerular Filtration Rate 42.9 mL/min (>60) 42.9 mL/min (>60) Glucose Level 88 MG/DL (74-106) 93 MG/DL (74-106) Calcium Level 9.2 MG/DL (8.5-10.1) 9.4 MG/DL (8.5-10.1) Total Bilirubin 1.3 MG/DL (0.2-1.0) H Direct Bilirubin 0.4 MG/DL (0.0-0.3) H Aspartate Amino Transf (AST/SGOT) 21 U/L (15-37) Alanine Aminotransferase (ALT/SGPT) 24 U/L (12-78) Alkaline Phosphatase 122 U/L (46-116) H Creatine Kinase MB 1.2 NG/ML (0.0-3.6) Troponin I 0.038 ng/mL (0.000-0.056) 0.027 ng/mL (0.000-0.056) Pro-B-Type Natriuretic Peptide 7332 pg/mL (0-125) H Total Protein 8.2 G/DL (6.4-8.2) Albumin 3.6 G/DL (3.4-5.0) 3.6 G/DL (3.4-5.0) Globulin 4.6 g/dL Albumin/Globulin Ratio 0.8 (1.0-2.7) L Lipase 261 U/L (73-393) Urine Color Isabella Urine Appearance Slightly cloudy Urine pH 6 (4.5-8.0) Urine Specific [place] 1.010 (1.005-1.035) Urine Protein 3+ (NEGATIVE) H Urine Glucose (UA) Negative (NEGATIVE) Urine Ketones Negative (NEGATIVE) Urine Blood Negative (NEGATIVE) Urine Nitrite Negative (NEGATIVE) Urine Bilirubin Negative (NEGATIVE) Urine Ictotest Negative (NEGATIVE) Urine Urobilinogen 1 MG/DL (0.0-1.0) H Urine Leukocyte Esterase Negative (NEGATIVE) Urine RBC 0-2 /HPF (0 - 0) H Urine WBC 0 /HPF (0 - 0) Urine Squamous Epithelial Cells Few /LPF (NONE/OCC) Urine Bacteria Occasional /HPF (NONE) Urine Mucus Many /LPF (NONE/OCC) H Phosphorus Level 4.4 MG/DL (2.5-4.9) Madhav Leung MD Apr 07, 2018 12:05
--- NOTE | 2018-04-07 12:22 | Consultation ---
History of Present Illness General Date patient seen: Apr 07, 2018 Chief Complaint: General Complaint Reason for Consultation: dyspnea Present Illness HPI 68 year old male with history of CHF presented to ER with CC of worsening shortness of breath over last 3-4 days. Patient has orthopnea and significant bilateral lower chimney swelling. Patient denies any chest pain. States that he's been using his albuterol without much improvement. No other complaint are noted.No other modifying factors. No other associated signs and symptoms. Allergies: Coded Allergies: No Known Allergies (Unverified , 02/28/16) Medication History Scheduled Amlodipine Besylate* (Amlodipine Besylate*), 2.5 MG ORAL DAILY, (Reported) Amlodipine Besylate* (Amlodipine Besylate*), 10 MG ORAL DAILY, (Reported) Aspirin* (Aspir 81*), 81 MG ORAL DAILY, (Reported) Atorvastatin Calcium* (Atorvastatin Calcium*), 20 MG ORAL BEDTIME, (Reported) Bumetanide* (Bumetanide*), 1 MG ORAL DAILY, (Reported) Cholecalciferol (Vitamin D3)* (Vitamin D*), 5,000 UNITS ORAL DAILY, (Reported) Clopidogrel* (Clopidogrel*), 75 MG ORAL DAILY, (Reported) Lisinopril* (Lisinopril*), 2.5 MG ORAL DAILY, (Reported) Metoprolol Tartrate* (Metoprolol Tartrate*), 100 MG ORAL ACBREAKFAST, (Reported) Metoprolol Tartrate* (Metoprolol Tartrate*), 100 MG ORAL DA, (Reported) Nifedipine (Nifedipine*), 30 MG ORAL DAILY, (Reported) Nifedipine Xl* (Nifedipine Xl*), 30 MG ORAL BEDTIME, (Reported) Pantoprazole* (Protonix*), 40 MG ORAL DAILY, (Reported) Simvastatin (Zocor), 80 MG ORAL BEDTIME, (Reported) Scheduled PRN Albuterol Sulfate* (Albuterol Sulfate Hhn*), 3 ML INH Q4H PRN for Shortness of Breath, (Reported) Alprazolam* (Xanax*), 1 MG ORAL BEDTIME PRN for Insomnia, (Reported) Patient History Healthcare decision maker Resuscitation status Full Code Advanced Directive on File No Past Medical/Surgical History Past Medical/Surgical History: (1) COPD (chronic obstructive pulmonary disease) (2) HTN (hypertension) (3) CAD (coronary artery disease) Review of Systems All Other Systems: negative except mentioned in HPI Physical Exam General Appearance: WD/WN Lines, tubes and drains: peripheral HEENT: normocephalic, atraumatic Neck: non-tender, normal alignment Respiratory/Chest: chest wall non-tender, lungs clear Cardiovascular/Chest: normal peripheral pulses, normal rate Abdomen: normal bowel sounds Genitourinary/Rectal: normal genital exam Extremities: pitting Skin Exam: rash Last 24 Hour Vital Signs Date Time Temp Pulse Resp B/P (MAP) Pulse Ox O2 Delivery O2 Flow Rate FiO2 04/07/18 09:18 64 119/63 04/07/18 08:00 98.2 84 20 119/63 (81) 94 98.2 04/07/18 08:00 98.2 84 20 119/63 (81) 94 98.2 04/07/18 08:00 92 04/07/18 07:58 71 18 Nasal Cannula 3.0 32 04/07/18 07:58 Nasal Cannula 3.0 32 04/07/18 07:58 94 Nasal Cannula 3.0 32 04/07/18 04:00 97.4 73 18 130/61 (84) 95 97.4 04/07/18 04:00 73 04/07/18 00:00 97.7 76 20 134/67 (89) 92 97.7 04/07/18 00:00 77 04/06/18 22:54 Nasal Cannula 2.0 28 04/06/18 22:53 96 Nasal Cannula 2.0 28 04/06/18 22:38 Nasal Cannula 2.0 04/06/18 20:51 69 146/72 04/06/18 20:45 75 04/06/18 20:00 97.4 75 19 146/72 (96) 90 97.4 04/06/18 19:35 97.8 77 18 126/59 98 Nasal Cannula 21 97.8 04/06/18 19:35 97.8 77 19 114/76 96 Nasal Cannula 2.0 97.8 04/06/18 18:32 97.8 75 18 126/59 98 Nasal Cannula 21 97.8 04/06/18 16:57 97.8 81 18 101/64 98 Room Air 21 97.8 04/06/18 16:11 80 18 98 Room Air 21 04/06/18 15:55 75 16 Room Air 21 04/06/18 15:55 75 16 92 Room Air 21 04/06/18 15:55 21 04/06/18 15:17 Room Air Intake and Output 04/06/18 04/07/18 19:00 07:00 Intake Total 60 ml Output Total 3500 ml Balance -3440 ml Intake Oral 60 ml Output Urine Total 3500 ml # Voids 1 Laboratory Tests Test 04/06/18 15:50 04/06/18 16:40 04/07/18 05:10 White Blood Count 12.6 K/UL (4.8-10.8) H 11.5 K/UL (4.8-10.8) H Red Blood Count 4.13 M/UL (4.70-6.10) L 4.39 M/UL (4.70-6.10) L Hemoglobin 11.6 G/DL (14.2-18.0) L 11.5 G/DL (14.2-18.0) L Hematocrit 35.6 % (42.0-52.0) L 37.1 % (42.0-52.0) L Mean Corpuscular Volume 86 FL (80-99) 85 FL (80-99) Mean Corpuscular Hemoglobin 28.2 PG (27.0-31.0) 26.2 PG (27.0-31.0) L Mean Corpuscular Hemoglobin Concent 32.7 G/DL (32.0-36.0) 31.0 G/DL (32.0-36.0) L Red Cell Distribution Width 15.9 % (11.6-14.8) H 16.0 % (11.6-14.8) H Platelet Count 176 K/UL (150-450) 177 K/UL (150-450) Mean Platelet Volume 8.8 FL (6.5-10.1) 10.1 FL (6.5-10.1) Neutrophils (%) (Auto) 52.1 % (45.0-75.0) 53.7 % (45.0-75.0) Lymphocytes (%) (Auto) 21.4 % (20.0-45.0) 25.2 % (20.0-45.0) Monocytes (%) (Auto) 8.8 % (1.0-10.0) 9.4 % (1.0-10.0) Eosinophils (%) (Auto) 15.9 % (0.0-3.0) H 10.9 % (0.0-3.0) H Basophils (%) (Auto) 1.8 % (0.0-2.0) 0.8 % (0.0-2.0) Prothrombin Time 13.1 SEC (9.30-11.50) H Prothromb Time International Ratio 1.3 (0.9-1.1) H Activated Partial Thromboplast Time 29 SEC (23-33) Sodium Level 142 MMOL/L (136-145) 146 MMOL/L (136-145) H Potassium Level 3.8 MMOL/L (3.5-5.1) 3.5 MMOL/L (3.5-5.1) Chloride Level 108 MMOL/L (98-107) H 108 MMOL/L (98-107) H Carbon Dioxide Level 24 MMOL/L (21-32) 30 MMOL/L (21-32) Anion Gap 10 mmol/L (5-15) 8 mmol/L (5-15) Blood Urea Nitrogen 38 mg/dL (7-18) H 34 mg/dL (7-18) H Creatinine 1.6 MG/DL (0.55-1.30) H 1.6 MG/DL (0.55-1.30) H Estimat Glomerular Filtration Rate 42.9 mL/min (>60) 42.9 mL/min (>60) Glucose Level 88 MG/DL (74-106) 93 MG/DL (74-106) Calcium Level 9.2 MG/DL (8.5-10.1) 9.4 MG/DL (8.5-10.1) Total Bilirubin 1.3 MG/DL (0.2-1.0) H Direct Bilirubin 0.4 MG/DL (0.0-0.3) H Aspartate Amino Transf (AST/SGOT) 21 U/L (15-37) Alanine Aminotransferase (ALT/SGPT) 24 U/L (12-78) Alkaline Phosphatase 122 U/L (46-116) H Creatine Kinase MB 1.2 NG/ML (0.0-3.6) Troponin I 0.038 ng/mL (0.000-0.056) 0.027 ng/mL (0.000-0.056) Pro-B-Type Natriuretic Peptide 7332 pg/mL (0-125) H Total Protein 8.2 G/DL (6.4-8.2) Albumin 3.6 G/DL (3.4-5.0) 3.6 G/DL (3.4-5.0) Globulin 4.6 g/dL Albumin/Globulin Ratio 0.8 (1.0-2.7) L Lipase 261 U/L (73-393) Urine Color Isabella Urine Appearance Slightly cloudy Urine pH 6 (4.5-8.0) Urine Specific [place] 1.010 (1.005-1.035) Urine Protein 3+ (NEGATIVE) H Urine Glucose (UA) Negative (NEGATIVE) Urine Ketones Negative (NEGATIVE) Urine Blood Negative (NEGATIVE) Urine Nitrite Negative (NEGATIVE) Urine Bilirubin Negative (NEGATIVE) Urine Ictotest Negative (NEGATIVE) Urine Urobilinogen 1 MG/DL (0.0-1.0) H Urine Leukocyte Esterase Negative (NEGATIVE) Urine RBC 0-2 /HPF (0 - 0) H Urine WBC 0 /HPF (0 - 0) Urine Squamous Epithelial Cells Few /LPF (NONE/OCC) Urine Bacteria Occasional /HPF (NONE) Urine Mucus Many /LPF (NONE/OCC) H Phosphorus Level 4.4 MG/DL (2.5-4.9) Height (Feet): 5 Height (Inches): 10.00 Weight (Pounds): 259 Medications Current Medications Medications (Trade) Dose Ordered Sig/[place] Route PRN Reason Start Time Stop Time Status Last Admin Dose Admin Acetaminophen (Tylenol) 650 mg Q4H PRN ORAL Fever 04/06/18 20:30 05/06/18 20:29 Albuterol/ Ipratropium (Albuterol/ Ipratropium) 3 ml Q4H PRN HHN Shortness of Breath 04/06/18 20:30 04/11/18 20:29 Clopidogrel Bisulfate (Plavix) 75 mg DAILY ORAL 04/07/18 09:00 05/07/18 08:59 04/07/18 09:18 Dextrose (Dextrose 50%) 25 ml Q30M PRN IV Hypoglycemia 04/06/18 20:30 05/06/18 20:29 Dextrose (Dextrose 50%) 50 ml Q30M PRN IV Hypoglycemia 04/06/18 20:45 05/06/18 20:44 Diltiazem HCl (Cardizem) 60 mg EVERY 8 HOURS ORAL 04/07/18 14:00 05/07/18 13:59 Furosemide (Lasix) 40 mg EVERY 8 HOURS IV 04/06/18 22:00 05/06/18 21:59 04/07/18 05:31 Heparin Sodium (Porcine) (Heparin 5000 units/ml) 5,000 units EVERY 12 HOURS SUBQ 04/06/18 21:00 05/06/18 20:59 04/06/18 20:52 Ondansetron HCl (Zofran) 4 mg Q6H PRN IVP Nausea & Vomiting 04/06/18 20:30 05/06/18 20:29 Pantoprazole (Protonix) 40 mg DAILY ORAL 04/07/18 09:00 05/07/18 08:59 04/07/18 09:17 Polyethylene Glycol (Miralax) 17 gm DAILYPRN PRN ORAL Constipation 04/06/18 20:30 05/06/18 20:29 Temazepam (Restoril) 15 mg HSPRN PRN ORAL Insomnia 04/06/18 20:30 04/13/18 20:29 Assessment/Plan Problem List: (1) Acute respiratory failure ICD Codes: J96.00 - Acute respiratory failure, unspecified whether with hypoxia or hypercapnia SNOMED: 51036672 (2) Acute CHF ICD Codes: I50.9 - Heart failure, unspecified SNOMED: 61558717, 306033438 (3) COPD (chronic obstructive pulmonary disease) ICD Codes: J44.9 - Chronic obstructive pulmonary disease, unspecified SNOMED: 47515053 (4) Anasarca ICD Codes: R60.1 - Generalized edema SNOMED: 057636300, 620853408 (5) HTN (hypertension) ICD Codes: I10 - Essential (primary) hypertension SNOMED: 71945977 Assessment/Plan cardiac evaluation echo diuretics respiratory treatment wound care ID to see for possible abx Dat Leroy MD Apr 07, 2018 12:22
--- NOTE | 2018-04-07 12:28 | Consultation ---
History of Present Illness General Date patient seen: Apr 07, 2018 Chief Complaint: General Complaint Present Illness HPI the pt is a 68-yo male presents emergency Department worsening shortness of breath over last 3-4 days. the pt has hx of anxiety and is currently anxious. the pt has copd, anxiety and insomnia. the pt was educated about anxiety and taking xanax when diagnosed with copd. the pt agreed to make a diff medication Allergies: Coded Allergies: No Known Allergies (Unverified , 02/28/16) Medication History Scheduled Amlodipine Besylate* (Amlodipine Besylate*), 2.5 MG ORAL DAILY, (Reported) Amlodipine Besylate* (Amlodipine Besylate*), 10 MG ORAL DAILY, (Reported) Aspirin* (Aspir 81*), 81 MG ORAL DAILY, (Reported) Atorvastatin Calcium* (Atorvastatin Calcium*), 20 MG ORAL BEDTIME, (Reported) Bumetanide* (Bumetanide*), 1 MG ORAL DAILY, (Reported) Cholecalciferol (Vitamin D3)* (Vitamin D*), 5,000 UNITS ORAL DAILY, (Reported) Clopidogrel* (Clopidogrel*), 75 MG ORAL DAILY, (Reported) Lisinopril* (Lisinopril*), 2.5 MG ORAL DAILY, (Reported) Metoprolol Tartrate* (Metoprolol Tartrate*), 100 MG ORAL ACBREAKFAST, (Reported) Metoprolol Tartrate* (Metoprolol Tartrate*), 100 MG ORAL DA, (Reported) Nifedipine (Nifedipine*), 30 MG ORAL DAILY, (Reported) Nifedipine Xl* (Nifedipine Xl*), 30 MG ORAL BEDTIME, (Reported) Pantoprazole* (Protonix*), 40 MG ORAL DAILY, (Reported) Simvastatin (Zocor), 80 MG ORAL BEDTIME, (Reported) Scheduled PRN Albuterol Sulfate* (Albuterol Sulfate Hhn*), 3 ML INH Q4H PRN for Shortness of Breath, (Reported) Alprazolam* (Xanax*), 1 MG ORAL BEDTIME PRN for Insomnia, (Reported) Patient History Limited by: medical condition History Provided By: Patient, Medical Record Healthcare decision maker Resuscitation status Full Code Advanced Directive on File No Past Medical/Surgical History Past Medical/Surgical History: (1) CAD (coronary artery disease) (2) HTN (hypertension) (3) Acute respiratory failure (4) Asthma exacerbation in COPD (5) Dyspnea (6) Sepsis (7) Elevated troponin (8) Fluid overload (9) Anasarca (10) Respiratory distress (11) Acute CHF (12) COPD (chronic obstructive pulmonary disease) (13) CHF (congestive heart failure) Review of Systems Psychiatric: Reports: anxiety - the pt has sleeping issues and anxiety through the day Physical Exam General Appearance: no apparent distress, alert, obese Last 24 Hour Vital Signs Date Time Temp Pulse Resp B/P (MAP) Pulse Ox O2 Delivery O2 Flow Rate FiO2 04/07/18 09:18 64 119/63 04/07/18 08:00 98.2 84 20 119/63 (81) 94 98.2 04/07/18 08:00 98.2 84 20 119/63 (81) 94 98.2 04/07/18 08:00 92 04/07/18 07:58 71 18 Nasal Cannula 3.0 32 04/07/18 07:58 Nasal Cannula 3.0 32 04/07/18 07:58 94 Nasal Cannula 3.0 32 04/07/18 04:00 97.4 73 18 130/61 (84) 95 97.4 04/07/18 04:00 73 04/07/18 00:00 97.7 76 20 134/67 (89) 92 97.7 04/07/18 00:00 77 04/06/18 22:54 Nasal Cannula 2.0 28 04/06/18 22:53 96 Nasal Cannula 2.0 28 04/06/18 22:38 Nasal Cannula 2.0 04/06/18 20:51 69 146/72 04/06/18 20:45 75 04/06/18 20:00 97.4 75 19 146/72 (96) 90 97.4 04/06/18 19:35 97.8 77 18 126/59 98 Nasal Cannula 21 97.8 04/06/18 19:35 97.8 77 19 114/76 96 Nasal Cannula 2.0 97.8 04/06/18 18:32 97.8 75 18 126/59 98 Nasal Cannula 21 97.8 04/06/18 16:57 97.8 81 18 101/64 98 Room Air 21 97.8 04/06/18 16:11 80 18 98 Room Air 21 04/06/18 15:55 75 16 Room Air 21 04/06/18 15:55 75 16 92 Room Air 21 04/06/18 15:55 21 04/06/18 15:17 Room Air Intake and Output 04/06/18 04/07/18 19:00 07:00 Intake Total 60 ml Output Total 3500 ml Balance -3440 ml Intake Oral 60 ml Output Urine Total 3500 ml # Voids 1 Laboratory Tests Test 04/06/18 15:50 04/06/18 16:40 04/07/18 05:10 White Blood Count 12.6 K/UL (4.8-10.8) H 11.5 K/UL (4.8-10.8) H Red Blood Count 4.13 M/UL (4.70-6.10) L 4.39 M/UL (4.70-6.10) L Hemoglobin 11.6 G/DL (14.2-18.0) L 11.5 G/DL (14.2-18.0) L Hematocrit 35.6 % (42.0-52.0) L 37.1 % (42.0-52.0) L Mean Corpuscular Volume 86 FL (80-99) 85 FL (80-99) Mean Corpuscular Hemoglobin 28.2 PG (27.0-31.0) 26.2 PG (27.0-31.0) L Mean Corpuscular Hemoglobin Concent 32.7 G/DL (32.0-36.0) 31.0 G/DL (32.0-36.0) L Red Cell Distribution Width 15.9 % (11.6-14.8) H 16.0 % (11.6-14.8) H Platelet Count 176 K/UL (150-450) 177 K/UL (150-450) Mean Platelet Volume 8.8 FL (6.5-10.1) 10.1 FL (6.5-10.1) Neutrophils (%) (Auto) 52.1 % (45.0-75.0) 53.7 % (45.0-75.0) Lymphocytes (%) (Auto) 21.4 % (20.0-45.0) 25.2 % (20.0-45.0) Monocytes (%) (Auto) 8.8 % (1.0-10.0) 9.4 % (1.0-10.0) Eosinophils (%) (Auto) 15.9 % (0.0-3.0) H 10.9 % (0.0-3.0) H Basophils (%) (Auto) 1.8 % (0.0-2.0) 0.8 % (0.0-2.0) Prothrombin Time 13.1 SEC (9.30-11.50) H Prothromb Time International Ratio 1.3 (0.9-1.1) H Activated Partial Thromboplast Time 29 SEC (23-33) Sodium Level 142 MMOL/L (136-145) 146 MMOL/L (136-145) H Potassium Level 3.8 MMOL/L (3.5-5.1) 3.5 MMOL/L (3.5-5.1) Chloride Level 108 MMOL/L (98-107) H 108 MMOL/L (98-107) H Carbon Dioxide Level 24 MMOL/L (21-32) 30 MMOL/L (21-32) Anion Gap 10 mmol/L (5-15) 8 mmol/L (5-15) Blood Urea Nitrogen 38 mg/dL (7-18) H 34 mg/dL (7-18) H Creatinine 1.6 MG/DL (0.55-1.30) H 1.6 MG/DL (0.55-1.30) H Estimat Glomerular Filtration Rate 42.9 mL/min (>60) 42.9 mL/min (>60) Glucose Level 88 MG/DL (74-106) 93 MG/DL (74-106) Calcium Level 9.2 MG/DL (8.5-10.1) 9.4 MG/DL (8.5-10.1) Total Bilirubin 1.3 MG/DL (0.2-1.0) H Direct Bilirubin 0.4 MG/DL (0.0-0.3) H Aspartate Amino Transf (AST/SGOT) 21 U/L (15-37) Alanine Aminotransferase (ALT/SGPT) 24 U/L (12-78) Alkaline Phosphatase 122 U/L (46-116) H Creatine Kinase MB 1.2 NG/ML (0.0-3.6) Troponin I 0.038 ng/mL (0.000-0.056) 0.027 ng/mL (0.000-0.056) Pro-B-Type Natriuretic Peptide 7332 pg/mL (0-125) H Total Protein 8.2 G/DL (6.4-8.2) Albumin 3.6 G/DL (3.4-5.0) 3.6 G/DL (3.4-5.0) Globulin 4.6 g/dL Albumin/Globulin Ratio 0.8 (1.0-2.7) L Lipase 261 U/L (73-393) Urine Color Isabella Urine Appearance Slightly cloudy Urine pH 6 (4.5-8.0) Urine Specific [place] 1.010 (1.005-1.035) Urine Protein 3+ (NEGATIVE) H Urine Glucose (UA) Negative (NEGATIVE) Urine Ketones Negative (NEGATIVE) Urine Blood Negative (NEGATIVE) Urine Nitrite Negative (NEGATIVE) Urine Bilirubin Negative (NEGATIVE) Urine Ictotest Negative (NEGATIVE) Urine Urobilinogen 1 MG/DL (0.0-1.0) H Urine Leukocyte Esterase Negative (NEGATIVE) Urine RBC 0-2 /HPF (0 - 0) H Urine WBC 0 /HPF (0 - 0) Urine Squamous Epithelial Cells Few /LPF (NONE/OCC) Urine Bacteria Occasional /HPF (NONE) Urine Mucus Many /LPF (NONE/OCC) H Phosphorus Level 4.4 MG/DL (2.5-4.9) Height (Feet): 5 Height (Inches): 10.00 Weight (Pounds): 259 Medications Current Medications Medications (Trade) Dose Ordered Sig/[place] Route PRN Reason Start Time Stop Time Status Last Admin Dose Admin Acetaminophen (Tylenol) 650 mg Q4H PRN ORAL Fever 04/06/18 20:30 05/06/18 20:29 Albuterol/ Ipratropium (Albuterol/ Ipratropium) 3 ml Q4H PRN HHN Shortness of Breath 04/06/18 20:30 04/11/18 20:29 Amlodipine Besylate (Norvasc) 10 mg DAILY ORAL 04/07/18 09:00 05/07/18 08:59 04/07/18 09:18 Clopidogrel Bisulfate (Plavix) 75 mg DAILY ORAL 04/07/18 09:00 05/07/18 08:59 04/07/18 09:18 Dextrose (Dextrose 50%) 25 ml Q30M PRN IV Hypoglycemia 04/06/18 20:30 05/06/18 20:29 Dextrose (Dextrose 50%) 50 ml Q30M PRN IV Hypoglycemia 04/06/18 20:45 05/06/18 20:44 Furosemide (Lasix) 40 mg EVERY 8 HOURS IV 04/06/18 22:00 05/06/18 21:59 04/07/18 05:31 Heparin Sodium (Porcine) (Heparin 5000 units/ml) 5,000 units EVERY 12 HOURS SUBQ 04/06/18 21:00 05/06/18 20:59 04/06/18 20:52 Nifedipine (Procardia XL) 30 mg BEDTIME ORAL 04/06/18 21:00 05/06/18 20:59 04/06/18 20:51 Ondansetron HCl (Zofran) 4 mg Q6H PRN IVP Nausea & Vomiting 04/06/18 20:30 05/06/18 20:29 Pantoprazole (Protonix) 40 mg DAILY ORAL 04/07/18 09:00 05/07/18 08:59 04/07/18 09:17 Polyethylene Glycol (Miralax) 17 gm DAILYPRN PRN ORAL Constipation 04/06/18 20:30 05/06/18 20:29 Temazepam (Restoril) 15 mg HSPRN PRN ORAL Insomnia 04/06/18 20:30 04/13/18 20:29 Assessment/Plan Status: stable Assessment/Plan Anxiety d/o due to [facility] dc Xanax start Remeron 7.5 mg po qhs provided ro/Mert Herrmann MD Apr 07, 2018 12:28
[2018-04-07] MEDS ORDERED: Albuterol ud Inhalation HHN PRN (13:15)
--- NOTE | 2018-04-07 13:15 | History & Physical ---
History and Physical History & Physicial Dictated for Int Med-Dr Holden no. [id number]. Leonides Frankel MD Apr 07, 2018 13:15
[2018-04-07] MEDS ORDERED: dilTIAZem HCl 60mg tab ORAL SCH (14:00)
[2018-04-07 16:00] VITALS: BP 138/89
--- NOTE | 2018-04-07 16:10 | Diagnostic Imaging Report ---
APPROVED REPORT CPT Code: 55696 Present Symptoms Shortness of breath Comments: Swelling BILATERAL: Imaging reveals a patent deep venous system bilaterally. There is no evidence of thrombus within the femoral, popliteal or tibial segments. The greater saphenous veins are also within normal limits. Doppler indicates normal spontaneous flow within these segments.
[2018-04-07 20:00] VITALS: BP 140/62
--- NOTE | 2018-04-08 14:18 | Discharge Summary ---
Discharge Summary Discharge Summary _ DATE OF ADMISSION: 04/06/2018 DATE OF DISCHARGE: 04/07/2018 CONSULTANTS: Dr. Mert Leung BRIEF HOSPITAL COURSE: Patient is a 68-year-old male, with history of CHF, CAD, COPD, presented to ED complaining of shortness of breath for 3-4 days. Patient has orthopnea and significant lower extremity swelling. He denied chest pain. He was using his albuterol without relief of symptoms. [facility] and was transferred to ER due to severity of symptoms. On evaluation at ED, blood work showed leukocytosis, WBC of 12. BNP was elevated to 7332. Troponin was negative. He had a chest x-ray that showed cardiomegaly with interstitial edema and bilateral left greater than right pleural effusion. He was admitted for acute CHF and COPD exacerbation. He was given Lasix. He was given breathing treatments. He was eventually transferred to [facility]. FINAL DIAGNOSES: Acute CHF exacerbation Acute COPD exacerbation Anxiety disorder due to general medical condition DISPOSITION: Patient was transferred to a contracted hospital. I have been assigned to dictate discharge summary on this account, and I was not involved in the patient's management. Radha Frausto NP Apr 08, 2018 14:17
--- NOTE | 2018-04-08 16:45 | History and Physical Report ---
DATE OF ADMISSION: 04/07/2018 CHIEF COMPLAINT: The patient is a 68-year-old white male, who presents with a chief complaint of shortness of breath and bilateral feet swelling. HISTORY OF PRESENT ILLNESS: Began one week prior to admission. The patient began to have shortness of breath. The patient had increasing bilateral foot swelling. The patient has a history of congestive heart failure in the past. The patient was told not to drink water. The patient states shortness of breath increased over the last week. The patient was unable to walk more than a few steps. The patient presented to [place] emergency room. The patient was admitted with acute on chronic congestive heart failure. PAST MEDICAL HISTORY: Significant for, 1. Congestive heart failure. 2. Coronary artery disease. 3. History of chronic obstructive pulmonary disease. 4. Cerebrovascular accident in 2007. PAST SURGICAL HISTORY: The patient denies. CURRENT MEDICATIONS: 1. Albuterol metered-dose inhaler two puffs p.o. q.i.d. p.r.n. 2. Xanax 1 mg p.o. at bedtime. 3. Amlodipine 10 mg p.o. daily. 4. Aspirin 81 mg p.o. daily. 5. Atorvastatin 20 mg p.o. daily. 6. Bumetanide 1 mg p.o. daily. 7. Clopidogrel 75 mg p.o. daily. 8. Lisinopril 2.5 mg p.o. daily. 9. Metoprolol 100 mg p.o. daily. 10. Nifedipine 30 mg p.o. daily. 11. Protonix 40 mg p.o. daily. 12. Zocor 80 mg p.o. at bedtime. ALLERGIES: No known drug allergies. SOCIAL HISTORY: The patient is . The patient denies tobacco or alcohol use. The patient is retired. REVIEW OF SYSTEMS: CONSTITUTIONAL: The patient denies weight loss or weight gain. The patient denies fevers or chills. HEENT: The patient denies ear or throat pain. The patient denies headache. CARDIOVASCULAR: The patient denies palpitations or chest pain. CHEST: The patient complains of shortness of breath as above. The patient complains of wheezes. ABDOMEN: The patient denies nausea, vomiting, diarrhea, or constipation. GENITOURINARY: The patient denies dysuria or increased frequency of urination. NEUROMUSCULAR: The patient denies seizures or generalized weakness. PHYSICAL EXAMINATION: VITAL SIGNS: Temperature 97.4, respirations 18, pulse 73, and blood pressure 130/61. GENERAL: The patient is a well-developed and well-nourished white male, in no apparent distress. HEENT: Eyes, pupils equal and responsive to light and accommodation. Extraocular movements intact. NECK: Supple without lymphadenopathy. CHEST: Diffuse wheezes in bilateral lung higgins. Otherwise, clear to auscultation bilaterally. ABDOMEN: Soft, nontender, and nondistended. Positive bowel sounds. No evidence of hepatosplenomegaly. Currently, no rebound or guarding noted. EXTREMITIES: Negative for clubbing, cyanosis, or edema. RECTAL AND GENITAL: Refused. NEUROLOGIC: Cranial nerves II through XII are grossly intact without focal deficits. Motor strength is 5/5 bilaterally. Deep tendon reflexes are 2+ plantar. LABORATORY STUDIES: WBC 12.6, hemoglobin 9.6, hematocrit 35.6, and platelets 176,000. Sodium 142, potassium 3.8, chloride 108, CO2 24, BUN 38, creatinine 1.6, and glucose 88. Troponin elevated at 0.038. BNP elevated at 7332. Chest x-ray revealed cardiomegaly with interstitial edema consistent with congestive heart failure. ASSESSMENT: This is a 68-year-old white male. 1. Shortness of breath. 2. Congestive heart failure. 3. Coronary artery disease. 4. Cerebrovascular disease. TREATMENT: 1. Shortness of breath. This is probably secondary to congestive heart failure. 2. Congestive heart failure/coronary artery disease. A Cardiology consultation has been obtained with Dr. Madhav Leung. The patient is currently receiving Lasix. We will follow recommendations of Cardiology. Serial troponin levels will be performed. An echocardiogram is pending. 3. Cerebrovascular disease. 4. Edema of bilateral legs. A venous duplex Doppler of bilateral lower extremities is pending. Leonides Frankel M.D. DR: MARCY JOB#: [id number] CC:
--- NOTE | 2018-04-09 05:30 | Consultation ---
DATE OF CONSULTATION: 04/07/2018 CARDIOLOGY CONSULTATION CONSULTING PHYSICIAN: Madhav Leung M.D. REFERRING PHYSICIANS: 1. Philip Holden M.D. 2. Dat Leroy M.D. REASON FOR CONSULT: Congestive heart failure and frequent ventricular ectopies. 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 The patient was last hospitalized in October 2017 for congestive heart failure and COPD. The patient's echocardiogram showed EF of 55% to 60% at that time. The patient primarily was transferred to [facility] in view of the patient's insurance. The patient presented to the emergency room for increased bilateral lower extremity edema and increased shortness of breath. Denies any chest pain. The patient went to Dr. Kinney's office and was transferred for further evaluation. REVIEW OF SYSTEMS: Negative other than what was mentioned in the history of present illness. PAST MEDICAL HISTORY: As mentioned above. FAMILY HISTORY: Noncontributory. SOCIAL HISTORY: He lives at home. Does not smoke or drink alcohol. PHYSICAL EXAMINATION: VITAL SIGNS: Show blood pressure of 113/62, pulse 84, respirations 18, and temperature 98.2 degrees. HEAD AND NECK: Shows no JVD. LUNGS: Decreased breath sounds. CARDIOVASCULAR: Shows regular S1 and S2 with no gallop or murmur. ABDOMEN: Soft. EXTREMITIES: Show bilateral 2+ pitting edema. LABORATORY AND DIAGNOSTIC DATA: His EKG showed sinus rhythm with underlying right bundle-branch block and frequent bigeminal premature ventricular contractions. His lower extremity duplex shows no evidence of DVT. Labs show white count of 11.5, hemoglobin 11.5, hematocrit 37.1, and platelet count of 177,000. Sodium 142, potassium 3.5, BUN of 34, creatinine 1.6, and glucose of 93. His troponin is negative x2. BNP 7332. ASSESSMENT AND PLAN: 1. Exacerbation of congestive heart failure. His echocardiogram in October 2017 showed ejection fraction of 55% to 60%. This is likely due to diastolic dysfunction. We will start the patient on Lasix 40 mg IV b.i.d.. Continue to follow the patient clinically. 2. Frequent premature ventricular contractions and ventricular bigeminy. No evidence of ventricular tachycardia. Again, the patient was ruled out for myocardial infarction. Echocardiogram will be repeated. 3. Hypertension. I will discontinue Norvasc given the bilateral lower extremity edema. He is on Lasix 40 mg IV every 8 hours and change Procardia XL to Cardizem 60 mg q.6 hours. 4. Diabetes. 5. Renal failure. 6. Hypernatremia. Thank you very much, Dr. Holden, for allowing me to participate in the care of this patient. Please do not hesitate to contact me for any questions regarding my evaluation. Madhav Leung M.D. DR: ELIO JOB#: [id number] CC:
== END 2018-04-07 21:00 | disposition short-term general hospital (02) | DRG 292 ==
LOC: EMR 16:17 → EDBEDREQ 16:30 → 2E 16:32 → EDBEDREQ 16:45
DX: I11.0 Hypertensive heart disease with heart failure (principal); J44.1 Chronic obstructive pulmonary disease with (acute) exacerbation; E87.0 Hyperosmolality and hypernatremia; I50.33 Acute on chronic diastolic (congestive) heart failure; F06.4 Anxiety disorder due to known physiological condition; I25.10 Atherosclerotic heart disease of native coronary artery without angina pectoris; G47.00 Insomnia, unspecified; I49.3 Ventricular premature depolarization; I25.2 Old myocardial infarction; Z86.73 Personal history of transient ischemic attack (TIA), and cerebral infarction without residual deficits; E11.9 Type 2 diabetes mellitus without complications; I45.10 Unspecified right bundle-branch block; R00.8 Other abnormalities of heart beat
CPT/HCPCS: 36415; 51702; 71045; 80048; 80053; 80069; 81003; 82248; 82553; 83690; 83880; 84484; 85025; 85610; 85730; 87040; 93005; 93306; 93970; 94640; 94664; 94760; 96374; 99291

== ENCOUNTER 2018-08-13 16:05 | Inpatient (IN) | payer MEDICARE, OTHER ==
[~2018-08-13] VITALS: Ht 177.8 cm; Wt 108.4 kg
[~2018-08-13 16:05] MED LIST changes: +ADALAT20 MG ORAL; +AMLODIPINE BESY10 MG ORAL; +METOPROLOL TAR100 M1 ORAL
--- NOTE | 2018-08-13 16:05 | NUR ---
ED Nurse Note: Brought in by [facility] from home due to SOB x few days but worse this morning. Denies any chest pain. Nitro nasal spray 0.8mg given by EMS. Pt came in with nonrebreather 15L/min, O2 sat of 100%. Per pt, he does not use oxygen at home but uses inhaler for asthma. RT and Dr. Castellanos at the bedside.
[2018-08-13 16:08] VITALS: BP 143/83
--- NOTE | 2018-08-13 16:10 | Emergency Room Report ---
History of Present Illness General Chief Complaint: Dyspnea/Respdistress Source: Patient, EMS Present Illness HPI A 68-year-old male brought in by EMS with increased difficulty breathing gradual onset. Patient a prior history of his congestive heart failure. Patient had been reportedly taking Lasix. He had been noted to have increased difficulty breathing with associated increased leg swelling.She is noted to have gradual onset of symptoms. Allergies: Coded Allergies: No Known Allergies (Unverified , 02/28/16) Patient History Past Medical History: see triage record Reviewed Nursing Documentation: PMH: Agreed; PSxH: Agreed Nursing Documentation-PMH Hx Cardiac Problems: No - CHF Hx Hypertension: Yes Hx Asthma: No Hx COPD: Yes Hx Cancer: No Hx Gastrointestinal Problems: No Hx Neurological Problems: Yes Hx Cerebrovascular Accident: Yes - 8 YEARS AGO Review of Systems All Other Systems: negative except mentioned in HPI Physical Exam General Appearance: alert, obese, Chronically Ill Procedures Critical Care Time Critical Care Time Patient had a critical medical condition which untreated could potentially result in life or limb threatening injury. Total critical care time excluding procedures approximately 45 minutes. Medical Decision Making Diagnostic Impression: Primary Impression: CHF (congestive heart failure) Additional Impression: COPD (chronic obstructive pulmonary disease) ER Course Patient presented for shortness of breath. Differential included but was not limited to anemia, pneumonia, pneumothorax, myocardial infarction, pericardial effusion, congestive heart failure, acidosis. Because of complexity of patient' s case laboratory testing and imaging studies were ordered. Patient was noted to have improvement in shortness of breath after medications. Patient noted to have significant heart failure EKG interpreted by me showed normal sinus wide- complex rhythm with prolonged QT. Patient was given IV Lasix as well as nitroglycerin she was started on BiPAP due to shortness of breath. Patient was noted to have marked improvement. Dr. Philip Holden was contacted for inpatient management Labs Test 08/13/18 16:25 White Blood Count 8.7 K/UL (4.8-10.8) Red Blood Count 4.14 M/UL (4.70-6.10) Hemoglobin 9.9 G/DL (14.2-18.0) Hematocrit 32.1 % (42.0-52.0) Mean Corpuscular Volume 78 FL (80-99) Mean Corpuscular Hemoglobin 23.8 PG (27.0-31.0) Mean Corpuscular Hemoglobin Concent 30.7 G/DL (32.0-36.0) Red Cell Distribution Width 21.3 % (11.6-14.8) Platelet Count 134 K/UL (150-450) Mean Platelet Volume 8.6 FL (6.5-10.1) Neutrophils (%) (Auto) 65.9 % (45.0-75.0) Lymphocytes (%) (Auto) 16.9 % (20.0-45.0) Monocytes (%) (Auto) 11.8 % (1.0-10.0) Eosinophils (%) (Auto) 3.2 % (0.0-3.0) Basophils (%) (Auto) 2.1 % (0.0-2.0) Prothrombin Time 12.2 SEC (9.30-11.50) Prothromb Time International Ratio 1.2 (0.9-1.1) Activated Partial Thromboplast Time 21 SEC (23-33) Sodium Level 140 MMOL/L (136-145) Potassium Level 4.0 MMOL/L (3.5-5.1) Chloride Level 105 MMOL/L (98-107) Carbon Dioxide Level 23 MMOL/L (21-32) Anion Gap 12 mmol/L (5-15) Blood Urea Nitrogen 23 mg/dL (7-18) Creatinine 1.5 MG/DL (0.55-1.30) Estimat Glomerular Filtration Rate 46.3 mL/min (>60) Glucose Level 93 MG/DL (74-106) Calcium Level 8.9 MG/DL (8.5-10.1) Total Bilirubin 1.6 MG/DL (0.2-1.0) Direct Bilirubin 0.5 MG/DL (0.0-0.3) Aspartate Amino Transf (AST/SGOT) 27 U/L (15-37) Alanine Aminotransferase (ALT/SGPT) 14 U/L (12-78) Alkaline Phosphatase 152 U/L (46-116) Total Creatine Kinase 100 U/L (26-308) Creatine Kinase MB 1.9 NG/ML (0.0-3.6) Creatine Kinase MB Relative Index 1.9 Troponin I 0.003 ng/mL (0.000-0.056) Pro-B-Type Natriuretic Peptide 8408 pg/mL (0-125) Total Protein 8.6 G/DL (6.4-8.2) Albumin 3.7 G/DL (3.4-5.0) Globulin 4.9 g/dL Albumin/Globulin Ratio 0.8 (1.0-2.7) Lipase 121 U/L (73-393) EKG Diagnostic Results Rate: normal Rhythm: NSR ST Segments: no acute changes Rhythm Strip Diag. Results EP Interpretation: yes Rhythm: NSR, other - frequent pvcs Status: improved Disposition: ADMITTED INPATIENT Condition: Serious Gopal Castellanos MD Aug 13, 2018 16:10
[2018-08-13] MEDS ORDERED: Nitroglycerin Subl 0.4mg tab SL PRN (16:15)
[2018-08-13] MEDS ORDERED: FUROSEMIDE40 MG ORAL (16:25)
[2018-08-13] MEDS ORDERED: TAMSULOSIN HCL0.4 MG ORAL (16:25)
--- NOTE | 2018-08-13 16:26 | NUR ---
ED Nurse Note: Blood specimens sent down to the lab. BiPAP 12/, FiO2 100% applied by RT per Dr. Castellanos verbal order. First dose of 0.4mg Nitro SL given per Dr. Castellanos verbal order. Pt denies any pain after 5min. Will continue to monitor VS.
--- NOTE | 2018-08-13 16:41 | Diagnostic Imaging Report ---
Indication: Dyspnea Comparison: April 06, 2018 A single view chest radiograph was obtained. Findings: There is enlargement of the cardiac silhouette with pulmonary vascular redistribution and prominence, hazy vessel margins and the suggestion of interstitial edema consistent with CHF. Azygos lobe noted. Bones are osteopenic. IMPRESSION: Moderate congestive heart failure
[2018-08-13] MEDS ORDERED: POTASSIUM CHLO20 ME2 ORAL (16:45)
[2018-08-13] MEDS ORDERED: VITAMIN D250000 UNI1 ORAL (16:45)
[2018-08-13 16:55] LABS: ANION GAP 12 mmol/L (5-15); BLOOD UREA NITROGEN 23 mg/dL (7-18); CALCIUM 8.9 MG/DL (8.5-10.1); CARBON DIOXIDE 23 MMOL/L (21-32); CHLORIDE 105 MMOL/L (98-107); CREATININE 1.5 MG/DL (0.55-1.30); SODIUM 140 MMOL/L (136-145)
[2018-08-13 16:58] LABS: BASOPHILS % (AUTO) 2.1 % (0.0-2.0); EOSINOPHILS % (AUTO) 3.2 % (0.0-3.0); HEMATOCRIT 32.1 % (42.0-52.0); HEMOGLOBIN 9.9 G/DL (14.2-18.0); LYMPHOCYTES % (AUTO) 16.9 % (20.0-45.0); MEAN CORPUSCULAR VOLUME 78 FL (80-99); MONOCYTES % (AUTO) 11.8 % (1.0-10.0); NEUTROPHILS % (AUTO) 65.9 % (45.0-75.0); PLATELET COUNT 134 K/UL (150-450); RED BLOOD COUNT 4.14 M/UL (4.70-6.10); RED CELL DISTRIBUTION WIDTH 21.3 % (11.6-14.8); WHITE BLOOD COUNT 8.7 K/UL (4.8-10.8)
[2018-08-13 17:06] LABS: INR 1.2 (0.9-1.1)
[2018-08-13 17:09] LABS: ALANINE AMINOTRANSFERASE 14 U/L (12-78); ALBUMIN 3.7 G/DL (3.4-5.0); ALBUMIN/GLOBULIN RATIO 0.8 (1.0-2.7); ALKALINE PHOSPHATASE 152 U/L (46-116); ASPARTATE AMINO TRANSFERASE 27 U/L (15-37); BILIRUBIN,TOTAL 1.6 MG/DL (0.2-1.0); CKMB 1.9 NG/ML (0.0-3.6); CREATINE KINASE 100 U/L (26-308)
[2018-08-13 17:15] LABS: BILIRUBIN,DIRECT 0.5 MG/DL (0.0-0.3)
[2018-08-13] MEDS ORDERED: Miralax 17gm pkt ORAL PRN (17:45)
--- NOTE | 2018-08-13 18:01 | NUR ---
ED Nurse Note: belonging list done and all medications are turned in to pharmacy. Telephone report given to ESTEFANY Chow in 2W. Will transfer the patient.
[2018-08-13 18:08] VITALS: BP 138/75
--- NOTE | 2018-08-13 18:20 | NUR ---
TRANSFER TO FLOOR: Patient transferred to #[id number] as ordered via gurney with laboratory monitor by Tamia ALLISON and Jose GuadalupeEMT. Report given to ESTEFANY Chow. Belongings given to pt. Medications are turned in to pharmacy.
--- NOTE | 2018-08-13 18:29 | History & Physical ---
History and Physical History & Physicial Patient: MARIA ESTHER IBARRA [facility] Rec #: [id number] Date of Service: 08/13/18 DATE OF ADMISSION: 08/13/2018 CHIEF COMPLAINT: The patient is a 68-year-old white male, who presents with a chief complaint of shortness of breath and bilateral feet swelling. HISTORY OF PRESENT ILLNESS: Began one week prior to admission. The patient began to have shortness of breath. The patient had increasing bilateral foot swelling. The patient has a history of congestive heart failure in the past. The patient was told not to drink water. The patient states shortness of breath increased over the last week. The patient was unable to walk more than a few steps. The patient presented to [place] emergency room. The patient was admitted with acute on chronic congestive heart failure. PAST MEDICAL HISTORY: Significant for, 1. Congestive heart failure. 2. Coronary artery disease. 3. History of chronic obstructive pulmonary disease. 4. Cerebrovascular accident in 2007. 5. Morbid Obesity. PAST SURGICAL HISTORY: The patient denies. CURRENT MEDICATIONS: 1. Albuterol metered-dose inhaler two puffs p.o. q.i.d. p.r.n. 2. Xanax 1 mg p.o. at bedtime. 3. Amlodipine 10 mg p.o. daily. 4. Aspirin 81 mg p.o. daily. 5. Atorvastatin 20 mg p.o. daily. 6. Bumetanide 1 mg p.o. daily. 7. Clopidogrel 75 mg p.o. daily. 8. Lisinopril 2.5 mg p.o. daily. 9. Metoprolol 100 mg p.o. daily. 10. Nifedipine 30 mg p.o. daily. 11. Protonix 40 mg p.o. daily. 12. Zocor 80 mg p.o. at bedtime. ALLERGIES: No known drug allergies. SOCIAL HISTORY: The patient is . The patient denies tobacco or alcohol use. The patient is retired. REVIEW OF SYSTEMS: CONSTITUTIONAL: The patient denies weight loss or weight gain. The patient denies fevers or chills. HEENT: The patient denies ear or throat pain. The patient denies headache. CARDIOVASCULAR: The patient denies palpitations or chest pain. CHEST: The patient complains of shortness of breath as above. The patient complains of wheezes. ABDOMEN: The patient denies nausea, vomiting, diarrhea, or constipation. GENITOURINARY: The patient denies dysuria or increased frequency of urination. NEUROMUSCULAR: The patient denies seizures or generalized weakness. PHYSICAL EXAMINATION: Last 24 Hour Vital Signs Date Time Temp Pulse Resp B/P (MAP) Pulse Ox O2 Delivery O2 Flow Rate FiO2 08/13/18 18:08 98.0 72 16 138/75 100 Bi-pap 15.0 100 08/13/18 16:37 100 08/13/18 16:35 66 19 100 Facial 100 08/13/18 16:26 66 19 Bi-pap 100 08/13/18 16:26 66 19 100 Facial 100 08/13/18 16:15 143/83 08/13/18 16:08 98.0 82 20 143/83 100 Non-Rebreather 15.0 08/13/18 16:08 82 22 Non-Rebreather 15.0 08/13/18 16:01 110 22 140/82 100 Non-Rebreather 15.0 GENERAL: The patient is a well-developed and well-nourished white male, On BiPAP. HEENT: Eyes, pupils equal and responsive to light and accommodation. Extraocular movements intact. NECK: Supple without lymphadenopathy. CHEST: bilateral air entry, Diffuse wheezes in bilateral lung higgins. ABDOMEN: Soft, nontender, and nondistended. Positive bowel sounds. no rebound or guarding, morbid obesity. EXTREMITIES: Negative for clubbing, cyanosis, +3 LE's edema. RECTAL AND GENITAL: Refused. NEUROLOGIC: Cranial nerves II through XII are grossly intact without focal deficits. Motor strength is 5/5 bilaterally. Labs Test 08/13/18 16:25 White Blood Count 8.7 K/UL (4.8-10.8) Red Blood Count 4.14 M/UL (4.70-6.10) Hemoglobin 9.9 G/DL (14.2-18.0) Hematocrit 32.1 % (42.0-52.0) Mean Corpuscular Volume 78 FL (80-99) Mean Corpuscular Hemoglobin 23.8 PG (27.0-31.0) Mean Corpuscular Hemoglobin Concent 30.7 G/DL (32.0-36.0) Red Cell Distribution Width 21.3 % (11.6-14.8) Platelet Count 134 K/UL (150-450) Mean Platelet Volume 8.6 FL (6.5-10.1) Neutrophils (%) (Auto) 65.9 % (45.0-75.0) Lymphocytes (%) (Auto) 16.9 % (20.0-45.0) Monocytes (%) (Auto) 11.8 % (1.0-10.0) Eosinophils (%) (Auto) 3.2 % (0.0-3.0) Basophils (%) (Auto) 2.1 % (0.0-2.0) Prothrombin Time 12.2 SEC (9.30-11.50) Prothromb Time International Ratio 1.2 (0.9-1.1) Activated Partial Thromboplast Time 21 SEC (23-33) Sodium Level 140 MMOL/L (136-145) Potassium Level 4.0 MMOL/L (3.5-5.1) Chloride Level 105 MMOL/L (98-107) Carbon Dioxide Level 23 MMOL/L (21-32) Anion Gap 12 mmol/L (5-15) Blood Urea Nitrogen 23 mg/dL (7-18) Creatinine 1.5 MG/DL (0.55-1.30) Estimat Glomerular Filtration Rate 46.3 mL/min (>60) Glucose Level 93 MG/DL (74-106) Calcium Level 8.9 MG/DL (8.5-10.1) Total Bilirubin 1.6 MG/DL (0.2-1.0) Direct Bilirubin 0.5 MG/DL (0.0-0.3) Aspartate Amino Transf (AST/SGOT) 27 U/L (15-37) Alanine Aminotransferase (ALT/SGPT) 14 U/L (12-78) Alkaline Phosphatase 152 U/L (46-116) Total Creatine Kinase 100 U/L (26-308) Creatine Kinase MB 1.9 NG/ML (0.0-3.6) Creatine Kinase MB Relative Index 1.9 Troponin I 0.003 ng/mL (0.000-0.056) Pro-B-Type Natriuretic Peptide 8408 pg/mL (0-125) Total Protein 8.6 G/DL (6.4-8.2) Albumin 3.7 G/DL (3.4-5.0) Globulin 4.9 g/dL Albumin/Globulin Ratio 0.8 (1.0-2.7) Lipase 121 U/L (73-393) CXR: Moderate congestive heart failure ASSESSMENT: This is a 68-year-old white male. 1. Acute hypoxemic respiratory failure. 2. Acute on Chronic Congestive heart failure. 3. Coronary artery disease. 4. Cerebrovascular disease. 5. Morbid Obesity. TREATMENT: 1. Shortness of breath. Most likely due to Acute congestive heart failure. 2. Congestive heart failure/coronary artery disease. A Cardiology consultation has been obtained with Dr. Madhav Leung. Lasix IV. We will follow recommendations of Cardiology. Serial troponin levels will be performed. 3. Cerebrovascular disease. 4. Edema of bilateral legs. Philip Holden M.D. Philip Holden MD Aug 13, 2018 18:29
--- NOTE | 2018-08-13 18:30 | NUR ---
NURSE NOTES: Patient arrived in the unit. Placed on athletic monitor. On bipap as tolerated, awake, alert, in no apparent distress at this time. Call light within reach. Will admit to SDU inpatient standard level of care.
[2018-08-13] MEDS ORDERED: PROAIR HFA8.5 GM INH (18:39)
[2018-08-13] MEDS ORDERED: ALBUTEROL PO (18:39)
[2018-08-13] MEDS ORDERED: BUMETANIDE1 MG ORAL (18:41)
[2018-08-13] MEDS ORDERED: METOPROLOL TART25 MG ORAL (18:41)
[2018-08-13 18:42] VITALS: BP 124/89
[2018-08-13] MEDS ORDERED: POTASSIUM CHLO20 ME3 PO (18:44)
--- NOTE | 2018-08-13 19:10 | NUR ---
HAND-OFF: Report given to Rosalva Alexander RN.
--- NOTE | 2018-08-13 19:11 | NUR ---
NURSE NOTES: Received patient from ESTEFANY Chow. Patient is resting comfortably in bed. On BiPAP 12/5 FiO2:70% and O2 saturating at 100%, showing no signs of pain and/or distress. Bed on lowest position and bed alarm is activated. Will initiate MD admission orders.
[2018-08-13 20:00] VITALS: BP 126/92
[2018-08-13] MEDS: Heparin 5000 units/ml inj SUBQ SCH (21:00)
[2018-08-13] MEDS: Tamsulosin 0.4mg cap ORAL SCH (21:21)
[2018-08-13] MEDS: Albuterol/Ipratropium 3ml neb HHN PRN (21:24)
--- NOTE | 2018-08-13 21:26 | NUR ---
NURSE NOTES: HEPARIN HELD ,PATIENT HAVING EPISTAXIS.WILL CONTINUE MONITOR PATIENTS CONDITION
[2018-08-14] VITALS: BP 136/74
[2018-08-14] MEDS: Albuterol/Ipratropium 3ml neb HHN PRN ×2 (01:24→20:32)
[2018-08-14 04:00] VITALS: BP 100/70
[2018-08-14 05:45] LABS: ALBUMIN 3.6 G/DL (3.4-5.0); ANION GAP 11 mmol/L (5-15); CALCIUM 8.8 MG/DL (8.5-10.1); CARBON DIOXIDE 28 MMOL/L (21-32); CHLORIDE 103 MMOL/L (98-107); CREATININE 1.6 MG/DL (0.55-1.30); PHOSPHORUS 3.6 MG/DL (2.5-4.9); POTASSIUM 3.2 MMOL/L (3.5-5.1); SODIUM 142 MMOL/L (136-145)
[2018-08-14 05:46] LABS: BASOPHILS % (AUTO) 1.7 % (0.0-2.0); EOSINOPHILS % (AUTO) 0.2 % (0.0-3.0); HEMATOCRIT 32.8 % (42.0-52.0); HEMOGLOBIN 10.1 G/DL (14.2-18.0); LYMPHOCYTES % (AUTO) 10.1 % (20.0-45.0); MEAN CORPUSCULAR VOLUME 77 FL (80-99); MONOCYTES % (AUTO) 10.3 % (1.0-10.0); NEUTROPHILS % (AUTO) 77.8 % (45.0-75.0); PLATELET COUNT 151 K/UL (150-450); RED BLOOD COUNT 4.25 M/UL (4.70-6.10); RED CELL DISTRIBUTION WIDTH 20.8 % (11.6-14.8); WHITE BLOOD COUNT 8.5 K/UL (4.8-10.8)
[2018-08-14 05:56] LABS: BLOOD UREA NITROGEN 22 mg/dL (7-18)
--- NOTE | 2018-08-14 07:22 | NUR ---
HAND-OFF: Report given to Ericka Cervantes RN.
--- NOTE | 2018-08-14 07:25 | NUR ---
NURSE NOTES: Report received from Rosalva Galvez RN.Pt awake,alert oriented,sitting up on bed,on 2L NC,O2 sat 88%, appears on resp distress,,R.T placed pt back to Bipap 12/5 FiO2 50%, pt kept on removing it,verbalized unable to tolerate,did not eat breakfast,no appetite to eat ,denies chest pain ,S-R on the monitor ,Side Rails up x2 call rosa within reach at bedside,HOB elevated ,bed lock in lowest position,will continue with plans of care.
[2018-08-14 08:00] VITALS: BP 153/82
[2018-08-14] MEDS: Aspirin EC 81mg tab ORAL SCH (08:57)
[2018-08-14] MEDS: Heparin 5000 units/ml inj SUBQ SCH ×2 (09:00→21:01)
--- NOTE | 2018-08-14 10:55 | NUR ---
CASE MANAGEMENT: REVIEW 68/M BIBA FROM HOME CC: RESP DISTRESS . SOB SI: CHF EXACERBATION T 98.0 HR 110 RR 22 BP 143/83 SAT 100% BIPAP FIO2 100 H/H 9.9/32.1 BUN 23 CR 1.5 IS: LASIX IV X1 INTERQUAL CRITERIA MET: PATIENT ADMITTED TO STEP DOWN UNIT 08/13/2018 DCP: PATIENT IS FROM HOME
--- NOTE | 2018-08-14 11:16 | Diagnostic Imaging Report ---
EXAM: XR Chest, 1 View CLINICAL HISTORY: DYSPNEA TECHNIQUE: Frontal view of the chest. COMPARISON: Chest x-ray, 08/13/18 0245 FINDINGS: Lungs: Incidental note of azygos fissure in the right upper lobe. Pleural space: Unremarkable. No pneumothorax. Heart: Cardiomegaly. Mediastinum: Unremarkable. Bones/joints: Median sternotomy. Vasculature: Slight increased vascular and interstitial prominence. IMPRESSION: Slight increased vascular and interstitial prominence. Slight worsening CHF.
[2018-08-14 12:00] VITALS: BP 133/95
--- NOTE | 2018-08-14 12:18 | NUR ---
RESPIRATORY NOTE:pt placed on 3L n/c per DR Leroy post ABG.
--- NOTE | 2018-08-14 12:22 | Internal Med Progress Note ---
Subjective Physician Name Philip Holden Attending Physician Philip Holden MD Current Medications Medications (Trade) Dose Ordered Sig/[place] Route PRN Reason Start Time Stop Time Status Last Admin Dose Admin Acetaminophen (Tylenol) 650 mg Q4H PRN ORAL Fever 08/13/18 17:45 09/12/18 17:44 Albuterol/ Ipratropium (Albuterol/ Ipratropium) 3 ml Q4H PRN HHN Shortness of Breath 08/13/18 17:45 08/18/18 17:44 08/14/18 01:24 Amlodipine Besylate (Norvasc) 2.5 mg DAILY ORAL 08/14/18 09:00 09/13/18 08:59 08/14/18 08:57 Aspirin (Ecotrin) 81 mg DAILY ORAL 08/14/18 09:00 09/13/18 08:59 08/14/18 08:57 Dextrose (Dextrose 50%) 25 ml Q30M PRN IV Hypoglycemia 08/13/18 17:45 09/12/18 17:44 Dextrose (Dextrose 50%) 50 ml Q30M PRN IV Hypoglycemia 08/13/18 17:45 09/12/18 17:44 Furosemide (Lasix) 40 mg EVERY 8 HOURS IV 08/13/18 22:00 09/12/18 21:59 08/14/18 06:17 Heparin Sodium (Porcine) (Heparin 5000 units/ml) 5,000 units EVERY 12 HOURS SUBQ 08/13/18 21:00 09/12/18 20:59 08/14/18 09:00 Nitroglycerin (Ntg) 0.4 mg Q5M PRN SL Prn Chest Pain 08/13/18 16:15 09/12/18 16:14 08/13/18 16:15 Ondansetron HCl (Zofran) 4 mg Q6H PRN IVP Nausea & Vomiting 08/13/18 17:45 09/12/18 17:44 Polyethylene Glycol (Miralax) 17 gm DAILYPRN PRN ORAL Constipation 08/13/18 17:45 09/12/18 17:44 Tamsulosin HCl (Flomax) 0.4 mg BEDTIME ORAL 08/13/18 21:00 09/12/18 20:59 08/13/18 21:21 Temazepam (Restoril) 15 mg HSPRN PRN ORAL Insomnia 08/13/18 17:45 08/20/18 17:44 Allergies: Coded Allergies: No Known Allergies (Unverified , 02/28/16) Subjective Awake, alert, responsive, sitting up on chair, on BiPAP. Objective Last Vital Signs Date Time Temp Pulse Resp B/P (MAP) Pulse Ox O2 Delivery O2 Flow Rate FiO2 08/14/18 09:49 106 08/14/18 09:30 22 98 Facial 35 08/14/18 08:57 153/82 08/14/18 08:00 100.4 08/14/18 01:14 2.0 Laboratory Tests Test 08/13/18 16:25 08/14/18 04:25 08/14/18 05:17 White Blood Count 8.7 K/UL (4.8-10.8) 8.5 K/UL (4.8-10.8) Red Blood Count 4.14 M/UL (4.70-6.10) L 4.25 M/UL (4.70-6.10) L Hemoglobin 9.9 G/DL (14.2-18.0) L 10.1 G/DL (14.2-18.0) L Hematocrit 32.1 % (42.0-52.0) L 32.8 % (42.0-52.0) L Mean Corpuscular Volume 78 FL (80-99) L 77 FL (80-99) L Mean Corpuscular Hemoglobin 23.8 PG (27.0-31.0) L 23.6 PG (27.0-31.0) L Mean Corpuscular Hemoglobin Concent 30.7 G/DL (32.0-36.0) L 30.6 G/DL (32.0-36.0) L Red Cell Distribution Width 21.3 % (11.6-14.8) H 20.8 % (11.6-14.8) H Platelet Count 134 K/UL (150-450) L 151 K/UL (150-450) Mean Platelet Volume 8.6 FL (6.5-10.1) 8.6 FL (6.5-10.1) Neutrophils (%) (Auto) 65.9 % (45.0-75.0) 77.8 % (45.0-75.0) H Lymphocytes (%) (Auto) 16.9 % (20.0-45.0) L 10.1 % (20.0-45.0) L Monocytes (%) (Auto) 11.8 % (1.0-10.0) H 10.3 % (1.0-10.0) H Eosinophils (%) (Auto) 3.2 % (0.0-3.0) H 0.2 % (0.0-3.0) Basophils (%) (Auto) 2.1 % (0.0-2.0) H 1.7 % (0.0-2.0) Prothrombin Time 12.2 SEC (9.30-11.50) H Prothromb Time International Ratio 1.2 (0.9-1.1) H Activated Partial Thromboplast Time 21 SEC (23-33) L Sodium Level 140 MMOL/L (136-145) 142 MMOL/L (136-145) Potassium Level 4.0 MMOL/L (3.5-5.1) 3.2 MMOL/L (3.5-5.1) L Chloride Level 105 MMOL/L (98-107) 103 MMOL/L (98-107) Carbon Dioxide Level 23 MMOL/L (21-32) 28 MMOL/L (21-32) Anion Gap 12 mmol/L (5-15) 11 mmol/L (5-15) Blood Urea Nitrogen 23 mg/dL (7-18) H 22 mg/dL (7-18) H Creatinine 1.5 MG/DL (0.55-1.30) H 1.6 MG/DL (0.55-1.30) H Estimat Glomerular Filtration Rate 46.3 mL/min (>60) 42.9 mL/min (>60) Glucose Level 93 MG/DL (74-106) 87 MG/DL (74-106) Calcium Level 8.9 MG/DL (8.5-10.1) 8.8 MG/DL (8.5-10.1) Total Bilirubin 1.6 MG/DL (0.2-1.0) H Direct Bilirubin 0.5 MG/DL (0.0-0.3) H Aspartate Amino Transf (AST/SGOT) 27 U/L (15-37) Alanine Aminotransferase (ALT/SGPT) 14 U/L (12-78) Alkaline Phosphatase 152 U/L (46-116) H Total Creatine Kinase 100 U/L (26-308) Creatine Kinase MB 1.9 NG/ML (0.0-3.6) Creatine Kinase MB Relative Index 1.9 Troponin I 0.003 ng/mL (0.000-0.056) 0.023 ng/mL (0.000-0.056) Pro-B-Type Natriuretic Peptide 8408 pg/mL (0-125) H Total Protein 8.6 G/DL (6.4-8.2) H Albumin 3.7 G/DL (3.4-5.0) 3.6 G/DL (3.4-5.0) Globulin 4.9 g/dL Albumin/Globulin Ratio 0.8 (1.0-2.7) L Lipase 121 U/L (73-393) Phosphorus Level 3.6 MG/DL (2.5-4.9) Arterial Blood pH 7.450 (7.350-7.450) Arterial Blood Partial Pressure CO2 36.3 mmHg (35.0-45.0) Arterial Blood Partial Pressure O2 102.9 mmHg (75.0-100.0) H Arterial Blood HCO3 25.1 mmol/L (22.0-26.0) Arterial Blood Oxygen Saturation 97.4 % (95-100) Arterial Blood Base Excess 1.4 (-2-2) Jake Test Positive Intake and Output 08/13/18 08/14/18 19:00 07:00 Intake Total 400 ml Output Total 2050 ml Balance -1650 ml Intake Oral 400 ml Output Urine Total 2050 ml # Voids 5 Objective GENERAL: The patient is a well-developed and well-nourished white male, On BiPAP. HEENT: Eyes, pupils equal and responsive to light and accommodation. Extraocular movements intact. NECK: Supple, No lymphadenopathy. CHEST: bilateral air entry, Diffuse wheezes in bilateral lung higgins. ABDOMEN: Soft, nontender, and nondistended. Positive bowel sounds. no rebound or guarding, morbid obesity. EXTREMITIES: Negative for clubbing, cyanosis, +3 LE's edema. RECTAL AND GENITAL: Refused. NEUROLOGIC: Cranial nerves II through XII are grossly intact without focal deficits. Motor strength is 5/5 bilaterally. Assessment/Plan Assessment/Plan 1. Acute hypoxemic respiratory failure. 2. Acute on Chronic Congestive heart failure. 3. Coronary artery disease. 4. Cerebrovascular disease. 5. Morbid Obesity. TREATMENT: 1. Shortness of breath. Most likely due to Acute congestive heart failure. 2. Congestive heart failure/coronary artery disease. A Cardiology consultation has been obtained with Dr. Madhav Leung and Pulmonary consult with Dr. Leroy switch to Lasix Drip. 3. Cerebrovascular disease. 4. Edema of bilateral legs. 5. Code status: Full code 6. Wean off BiPAP. 7. DVT prophylaxis : Heparin SQ Philip Holden M.D. Philip Holden MD Aug 14, 2018 12:22
[2018-08-14] MEDS ORDERED: Promethazine/Codeine 5ml UD ORAL PRN (12:30)
--- NOTE | 2018-08-14 12:30 | Consultation ---
History of Present Illness General Chief Complaint: Dyspnea/Respdistress Present Illness HPI 68 year old male with history of CHF, COPD presented to ER with CC of worsening shortness of breath over last 3-4 days. Patient has orthopnea and significant bilateral lower extremity swelling. Patient denies any chest pain. No other complaint are noted.No other modifying factors. No other associated signs and symptoms. Pt was in respiratory failure in ER and was started on BIPAp and transferred to [facility] for further work up. Allergies: Coded Allergies: No Known Allergies (Unverified , 02/28/16) Medication History Scheduled Amlodipine Besylate* (Amlodipine Besylate*), 10 MG ORAL DAILY, (Reported) Aspirin* (Aspir 81*), 81 MG ORAL DAILY, (Reported) Bumetanide* (Bumetanide*), 1 MG ORAL DAILY, (Reported) Ergocalciferol (Vitamin D2)* (Vitamin D*), 50,000 UNIT ORAL ONCE A WEEK, ( Reported) Furosemide* (Lasix*), 40 MG ORAL DAILY, (Reported) Lisinopril* (Lisinopril*), 2.5 MG ORAL DAILY, (Reported) Metoprolol Tartrate* (Metoprolol Tartrate*), 25 MG ORAL EVERY 12 HOURS, ( Reported) Pantoprazole* (Protonix*), 40 MG ORAL DAILY, (Reported) Potassium Chloride (Potassium Chloride), 20 MEQ PO DAILY, (Reported) Tamsulosin Hcl (Tamsulosin Hcl*), 0.4 MG ORAL BEDTIME, (Reported) [albuterol 2mg/5m liq], 5 ML PO BID, (Reported) Scheduled PRN Albuterol Sulfate* (Proair Hfa*), 2 PUFFS INH Q6H PRN for Shortness of Breath, ( Reported) Discontinued Medications Alprazolam* (Xanax*), 1 MG ORAL BEDTIME PRN for Insomnia, (Reported) Discontinued Reason: MD discontinued med Amlodipine Besylate* (Amlodipine Besylate*), 2.5 MG ORAL DAILY, (Reported) Discontinued Reason: Medication dose changed Atorvastatin Calcium* (Atorvastatin Calcium*), 20 MG ORAL BEDTIME, (Reported) Discontinued Reason: MD discontinued med Bumetanide* (Bumetanide*), 1 MG ORAL DAILY, (Reported) Discontinued Reason: MD discontinued med Cholecalciferol (Vitamin D3)* (Vitamin D*), 5,000 UNITS ORAL DAILY, (Reported) Discontinued Reason: MD discontinued med Clopidogrel* (Clopidogrel*), 75 MG ORAL DAILY, (Reported) Discontinued Reason: MD discontinued med Nifedipine (Nifedipine*), 30 MG ORAL DAILY, (Reported) Discontinued Reason: MD discontinued med Nifedipine Xl* (Nifedipine Xl*), 30 MG ORAL BEDTIME, (Reported) Discontinued Reason: MD discontinued med Simvastatin (Zocor), 80 MG ORAL BEDTIME, (Reported) Discontinued Reason: MD discontinued med Patient History Healthcare decision maker Resuscitation status Full Code Advanced Directive on File No Past Medical/Surgical History Past Medical/Surgical History: (1) CHF (congestive heart failure) (2) COPD (chronic obstructive pulmonary disease) (3) CAD (coronary artery disease) Review of Systems All Other Systems: negative except mentioned in HPI Physical Exam General Appearance: WD/WN Lines, tubes and drains: peripheral HEENT: normocephalic, atraumatic Neck: non-tender, normal alignment Respiratory/Chest: chest wall non-tender, lungs clear Breasts: no masses Cardiovascular/Chest: normal peripheral pulses, normal rate Abdomen: normal bowel sounds, non tender Genitourinary/Rectal: normal genital exam Extremities: normal range of motion, pitting - massive edema Skin Exam: normal pigmentation Last 24 Hour Vital Signs Date Time Temp Pulse Resp B/P (MAP) Pulse Ox O2 Delivery O2 Flow Rate FiO2 08/14/18 10:35 102 20 99 Facial 35 08/14/18 09:49 106 08/14/18 09:30 91 22 98 Facial 35 08/14/18 08:57 110 153/82 08/14/18 08:00 Bi-pap 08/14/18 08:00 50 08/14/18 08:00 100.4 110 30 153/82 (105) 88 08/14/18 06:45 96 20 96 Facial 35 08/14/18 05:18 95 24 97 Facial 35 08/14/18 04:00 Bi-pap 08/14/18 04:00 50 08/14/18 04:00 98.5 99 16 100/70 (80) 100 08/14/18 03:32 93 08/14/18 03:14 100 22 99 Facial 35 08/14/18 01:30 90 21 98 Bi-pap 40 08/14/18 01:27 90 21 98 Full Face 40 08/14/18 01:14 112 24 94 Nasal Cannula 2.0 28 08/14/18 00:44 103 93 08/14/18 00:13 99 08/14/18 00:00 99.3 95 20 136/74 (94) 95 08/14/18 00:00 Bi-pap 08/13/18 22:51 67 93 08/13/18 21:31 107 24 94 Non-Rebreather 10.0 60 08/13/18 21:25 102 24 99 Non-Rebreather 15.0 100 08/13/18 20:36 100 28 99 Facial 50 08/13/18 20:00 50 08/13/18 20:00 98.0 67 20 126/92 (103) 100 08/13/18 20:00 Bi-pap 08/13/18 19:48 80 08/13/18 19:13 66 19 99 Facial 70 08/13/18 18:49 70 08/13/18 18:42 98.1 62 18 124/89 (101) 100 08/13/18 18:30 Bi-pap 08/13/18 18:20 98.0 72 16 138/75 100 Bi-pap 15.0 100 08/13/18 18:08 98.0 72 16 138/75 100 Bi-pap 15.0 100 08/13/18 16:37 100 08/13/18 16:35 66 19 100 Facial 100 08/13/18 16:26 66 19 Bi-pap 100 08/13/18 16:26 66 19 100 Facial 100 08/13/18 16:15 143/83 08/13/18 16:08 98.0 82 20 143/83 100 Non-Rebreather 15.0 08/13/18 16:08 82 22 Non-Rebreather 15.0 08/13/18 16:01 110 22 140/82 100 Non-Rebreather 15.0 Intake and Output 08/13/18 08/14/18 19:00 07:00 Intake Total 400 ml Output Total 2050 ml Balance -1650 ml Intake Oral 400 ml Output Urine Total 2050 ml # Voids 5 Laboratory Tests Test 08/13/18 16:25 08/14/18 04:25 08/14/18 05:17 White Blood Count 8.7 K/UL (4.8-10.8) 8.5 K/UL (4.8-10.8) Red Blood Count 4.14 M/UL (4.70-6.10) L 4.25 M/UL (4.70-6.10) L Hemoglobin 9.9 G/DL (14.2-18.0) L 10.1 G/DL (14.2-18.0) L Hematocrit 32.1 % (42.0-52.0) L 32.8 % (42.0-52.0) L Mean Corpuscular Volume 78 FL (80-99) L 77 FL (80-99) L Mean Corpuscular Hemoglobin 23.8 PG (27.0-31.0) L 23.6 PG (27.0-31.0) L Mean Corpuscular Hemoglobin Concent 30.7 G/DL (32.0-36.0) L 30.6 G/DL (32.0-36.0) L Red Cell Distribution Width 21.3 % (11.6-14.8) H 20.8 % (11.6-14.8) H Platelet Count 134 K/UL (150-450) L 151 K/UL (150-450) Mean Platelet Volume 8.6 FL (6.5-10.1) 8.6 FL (6.5-10.1) Neutrophils (%) (Auto) 65.9 % (45.0-75.0) 77.8 % (45.0-75.0) H Lymphocytes (%) (Auto) 16.9 % (20.0-45.0) L 10.1 % (20.0-45.0) L Monocytes (%) (Auto) 11.8 % (1.0-10.0) H 10.3 % (1.0-10.0) H Eosinophils (%) (Auto) 3.2 % (0.0-3.0) H 0.2 % (0.0-3.0) Basophils (%) (Auto) 2.1 % (0.0-2.0) H 1.7 % (0.0-2.0) Prothrombin Time 12.2 SEC (9.30-11.50) H Prothromb Time International Ratio 1.2 (0.9-1.1) H Activated Partial Thromboplast Time 21 SEC (23-33) L Sodium Level 140 MMOL/L (136-145) 142 MMOL/L (136-145) Potassium Level 4.0 MMOL/L (3.5-5.1) 3.2 MMOL/L (3.5-5.1) L Chloride Level 105 MMOL/L (98-107) 103 MMOL/L (98-107) Carbon Dioxide Level 23 MMOL/L (21-32) 28 MMOL/L (21-32) Anion Gap 12 mmol/L (5-15) 11 mmol/L (5-15) Blood Urea Nitrogen 23 mg/dL (7-18) H 22 mg/dL (7-18) H Creatinine 1.5 MG/DL (0.55-1.30) H 1.6 MG/DL (0.55-1.30) H Estimat Glomerular Filtration Rate 46.3 mL/min (>60) 42.9 mL/min (>60) Glucose Level 93 MG/DL (74-106) 87 MG/DL (74-106) Calcium Level 8.9 MG/DL (8.5-10.1) 8.8 MG/DL (8.5-10.1) Total Bilirubin 1.6 MG/DL (0.2-1.0) H Direct Bilirubin 0.5 MG/DL (0.0-0.3) H Aspartate Amino Transf (AST/SGOT) 27 U/L (15-37) Alanine Aminotransferase (ALT/SGPT) 14 U/L (12-78) Alkaline Phosphatase 152 U/L (46-116) H Total Creatine Kinase 100 U/L (26-308) Creatine Kinase MB 1.9 NG/ML (0.0-3.6) Creatine Kinase MB Relative Index 1.9 Troponin I 0.003 ng/mL (0.000-0.056) 0.023 ng/mL (0.000-0.056) Pro-B-Type Natriuretic Peptide 8408 pg/mL (0-125) H Total Protein 8.6 G/DL (6.4-8.2) H Albumin 3.7 G/DL (3.4-5.0) 3.6 G/DL (3.4-5.0) Globulin 4.9 g/dL Albumin/Globulin Ratio 0.8 (1.0-2.7) L Lipase 121 U/L (73-393) Phosphorus Level 3.6 MG/DL (2.5-4.9) Arterial Blood pH 7.450 (7.350-7.450) Arterial Blood Partial Pressure CO2 36.3 mmHg (35.0-45.0) Arterial Blood Partial Pressure O2 102.9 mmHg (75.0-100.0) H Arterial Blood HCO3 25.1 mmol/L (22.0-26.0) Arterial Blood Oxygen Saturation 97.4 % (95-100) Arterial Blood Base Excess 1.4 (-2-2) Jake Test Positive Height (Feet): 5 Height (Inches): 10.00 Weight (Pounds): 200 Medications Current Medications Medications (Trade) Dose Ordered Sig/[place] Route PRN Reason Start Time Stop Time Status Last Admin Dose Admin Acetaminophen (Tylenol) 650 mg Q4H PRN ORAL Fever 08/13/18 17:45 09/12/18 17:44 Albuterol/ Ipratropium (Albuterol/ Ipratropium) 3 ml Q4H PRN HHN Shortness of Breath 08/13/18 17:45 08/18/18 17:44 08/14/18 01:24 Amlodipine Besylate (Norvasc) 2.5 mg DAILY ORAL 08/14/18 09:00 09/13/18 08:59 08/14/18 08:57 Aspirin (Ecotrin) 81 mg DAILY ORAL 08/14/18 09:00 09/13/18 08:59 08/14/18 08:57 Dextrose (Dextrose 50%) 25 ml Q30M PRN IV Hypoglycemia 08/13/18 17:45 09/12/18 17:44 Dextrose (Dextrose 50%) 50 ml Q30M PRN IV Hypoglycemia 08/13/18 17:45 09/12/18 17:44 Furosemide 100 mg/ Dextrose 100 ml @ 10 mls/hr Q10H IV 08/14/18 14:00 09/13/18 13:59 Heparin Sodium (Porcine) (Heparin 5000 units/ml) 5,000 units EVERY 12 HOURS SUBQ 08/13/18 21:00 09/12/18 20:59 08/14/18 09:00 Levofloxacin 100 ml @ 100 mls/hr ONCE ONCE IVPB 08/14/18 13:00 08/14/18 13:59 Nitroglycerin (Ntg) 0.4 mg Q5M PRN SL Prn Chest Pain 08/13/18 16:15 09/12/18 16:14 08/13/18 16:15 Ondansetron HCl (Zofran) 4 mg Q6H PRN IVP Nausea & Vomiting 08/13/18 17:45 09/12/18 17:44 Polyethylene Glycol (Miralax) 17 gm DAILYPRN PRN ORAL Constipation 08/13/18 17:45 09/12/18 17:44 Tamsulosin HCl (Flomax) 0.4 mg BEDTIME ORAL 08/13/18 21:00 09/12/18 20:59 08/13/18 21:21 Temazepam (Restoril) 15 mg HSPRN PRN ORAL Insomnia 08/13/18 17:45 08/20/18 17:44 Assessment/Plan Problem List: (1) Acute respiratory failure ICD Codes: J96.00 - Acute respiratory failure, unspecified whether with hypoxia or hypercapnia SNOMED: 41066485 (2) CHF (congestive heart failure) ICD Codes: I50.9 - Heart failure, unspecified SNOMED: 54872135 (3) Acute bronchitis ICD Codes: J20.9 - Acute bronchitis, unspecified SNOMED: 43287012 (4) COPD (chronic obstructive pulmonary disease) ICD Codes: J44.9 - Chronic obstructive pulmonary disease, unspecified SNOMED: 41070554 (5) HTN (hypertension) ICD Codes: I10 - Essential (primary) hypertension SNOMED: 82591703 (6) CHF exacerbation ICD Codes: I50.9 - Heart failure, unspecified SNOMED: 75529075 Assessment/Plan respiratory treatment diuretics check electrolytes check sputum iv abx Dat Leroy MD Aug 14, 2018 12:29
--- NOTE | 2018-08-14 14:57 | Cardiac Electrophysiology PN ---
Subjective Subjective [id number] Objective Last 24 Hour Vital Signs Date Time Temp Pulse Resp B/P (MAP) Pulse Ox O2 Delivery O2 Flow Rate FiO2 08/14/18 14:00 3.0 08/14/18 12:00 Bi-pap 08/14/18 12:00 98.2 96 28 133/95 (108) 98 08/14/18 12:00 96 08/14/18 12:00 3.0 08/14/18 10:35 102 20 99 Facial 35 08/14/18 09:49 106 08/14/18 09:30 91 22 98 Facial 35 08/14/18 08:57 110 153/82 08/14/18 08:00 Bi-pap 08/14/18 08:00 50 08/14/18 08:00 100.4 110 30 153/82 (105) 88 08/14/18 06:45 96 20 96 Facial 35 08/14/18 05:18 95 24 97 Facial 35 08/14/18 04:00 Bi-pap 08/14/18 04:00 50 08/14/18 04:00 98.5 99 16 100/70 (80) 100 08/14/18 03:32 93 08/14/18 03:14 100 22 99 Facial 35 08/14/18 01:30 90 21 98 Bi-pap 40 08/14/18 01:27 90 21 98 Full Face 40 08/14/18 01:14 112 24 94 Nasal Cannula 2.0 28 08/14/18 00:44 103 93 08/14/18 00:13 99 08/14/18 00:00 99.3 95 20 136/74 (94) 95 08/14/18 00:00 Bi-pap 08/13/18 22:51 67 93 08/13/18 21:31 107 24 94 Non-Rebreather 10.0 60 08/13/18 21:25 102 24 99 Non-Rebreather 15.0 100 08/13/18 20:36 100 28 99 Facial 50 08/13/18 20:00 50 08/13/18 20:00 98.0 67 20 126/92 (103) 100 08/13/18 20:00 Bi-pap 08/13/18 19:48 80 08/13/18 19:13 66 19 99 Facial 70 08/13/18 18:49 70 08/13/18 18:42 98.1 62 18 124/89 (101) 100 08/13/18 18:30 Bi-pap 08/13/18 18:20 98.0 72 16 138/75 100 Bi-pap 15.0 100 08/13/18 18:08 98.0 72 16 138/75 100 Bi-pap 15.0 100 08/13/18 16:37 100 08/13/18 16:35 66 19 100 Facial 100 08/13/18 16:26 66 19 Bi-pap 100 08/13/18 16:26 66 19 100 Facial 100 08/13/18 16:15 143/83 08/13/18 16:08 98.0 82 20 143/83 100 Non-Rebreather 15.0 08/13/18 16:08 82 22 Non-Rebreather 15.0 08/13/18 16:01 110 22 140/82 100 Non-Rebreather 15.0 Intake and Output 08/13/18 08/14/18 19:00 07:00 Intake Total 400 ml Output Total 2050 ml Balance -1650 ml Intake Oral 400 ml Output Urine Total 2050 ml # Voids 5 Laboratory Tests Test 08/13/18 16:25 08/14/18 04:25 08/14/18 05:17 White Blood Count 8.7 K/UL (4.8-10.8) 8.5 K/UL (4.8-10.8) Red Blood Count 4.14 M/UL (4.70-6.10) L 4.25 M/UL (4.70-6.10) L Hemoglobin 9.9 G/DL (14.2-18.0) L 10.1 G/DL (14.2-18.0) L Hematocrit 32.1 % (42.0-52.0) L 32.8 % (42.0-52.0) L Mean Corpuscular Volume 78 FL (80-99) L 77 FL (80-99) L Mean Corpuscular Hemoglobin 23.8 PG (27.0-31.0) L 23.6 PG (27.0-31.0) L Mean Corpuscular Hemoglobin Concent 30.7 G/DL (32.0-36.0) L 30.6 G/DL (32.0-36.0) L Red Cell Distribution Width 21.3 % (11.6-14.8) H 20.8 % (11.6-14.8) H Platelet Count 134 K/UL (150-450) L 151 K/UL (150-450) Mean Platelet Volume 8.6 FL (6.5-10.1) 8.6 FL (6.5-10.1) Neutrophils (%) (Auto) 65.9 % (45.0-75.0) 77.8 % (45.0-75.0) H Lymphocytes (%) (Auto) 16.9 % (20.0-45.0) L 10.1 % (20.0-45.0) L Monocytes (%) (Auto) 11.8 % (1.0-10.0) H 10.3 % (1.0-10.0) H Eosinophils (%) (Auto) 3.2 % (0.0-3.0) H 0.2 % (0.0-3.0) Basophils (%) (Auto) 2.1 % (0.0-2.0) H 1.7 % (0.0-2.0) Prothrombin Time 12.2 SEC (9.30-11.50) H Prothromb Time International Ratio 1.2 (0.9-1.1) H Activated Partial Thromboplast Time 21 SEC (23-33) L Sodium Level 140 MMOL/L (136-145) 142 MMOL/L (136-145) Potassium Level 4.0 MMOL/L (3.5-5.1) 3.2 MMOL/L (3.5-5.1) L Chloride Level 105 MMOL/L (98-107) 103 MMOL/L (98-107) Carbon Dioxide Level 23 MMOL/L (21-32) 28 MMOL/L (21-32) Anion Gap 12 mmol/L (5-15) 11 mmol/L (5-15) Blood Urea Nitrogen 23 mg/dL (7-18) H 22 mg/dL (7-18) H Creatinine 1.5 MG/DL (0.55-1.30) H 1.6 MG/DL (0.55-1.30) H Estimat Glomerular Filtration Rate 46.3 mL/min (>60) 42.9 mL/min (>60) Glucose Level 93 MG/DL (74-106) 87 MG/DL (74-106) Calcium Level 8.9 MG/DL (8.5-10.1) 8.8 MG/DL (8.5-10.1) Total Bilirubin 1.6 MG/DL (0.2-1.0) H Direct Bilirubin 0.5 MG/DL (0.0-0.3) H Aspartate Amino Transf (AST/SGOT) 27 U/L (15-37) Alanine Aminotransferase (ALT/SGPT) 14 U/L (12-78) Alkaline Phosphatase 152 U/L (46-116) H Total Creatine Kinase 100 U/L (26-308) Creatine Kinase MB 1.9 NG/ML (0.0-3.6) Creatine Kinase MB Relative Index 1.9 Troponin I 0.003 ng/mL (0.000-0.056) 0.023 ng/mL (0.000-0.056) Pro-B-Type Natriuretic Peptide 8408 pg/mL (0-125) H Total Protein 8.6 G/DL (6.4-8.2) H Albumin 3.7 G/DL (3.4-5.0) 3.6 G/DL (3.4-5.0) Globulin 4.9 g/dL Albumin/Globulin Ratio 0.8 (1.0-2.7) L Lipase 121 U/L (73-393) Phosphorus Level 3.6 MG/DL (2.5-4.9) Arterial Blood pH 7.450 (7.350-7.450) Arterial Blood Partial Pressure CO2 36.3 mmHg (35.0-45.0) Arterial Blood Partial Pressure O2 102.9 mmHg (75.0-100.0) H Arterial Blood HCO3 25.1 mmol/L (22.0-26.0) Arterial Blood Oxygen Saturation 97.4 % (95-100) Arterial Blood Base Excess 1.4 (-2-2) Jake Test Positive Madhav Leung MD Aug 14, 2018 14:57
[2018-08-14 16:00] VITALS: BP 152/88
--- NOTE | 2018-08-14 17:15 | Consultation ---
DATE OF CONSULTATION: 08/14/2018 CARDIOLOGY CONSULTATION CONSULTING PHYSICIAN: Madhav Leung M.D. REFERRING PHYSICIAN: Philip Holden M.D. REASON FOR CONSULTATION: Exacerbation of congestive heart failure. HISTORY OF PRESENT ILLNESS: The patient is a 68-year-old gentleman with history of hypertension, congestive heart failure, and history of coronary artery bypass graft, who presented to the emergency room for increasing shortness of breath for the last week. The patient is also not able to walk more than a few steps and has severe bilateral lower extremity edema. The patient was admitted and Cardiology consultation was obtained for further evaluation and management. REVIEW OF SYSTEMS: Negative other than what was mentioned in the history of present illness. PAST MEDICAL HISTORY: 1. Hypertension. 2. Congestive heart failure. 3. History of coronary artery bypass graft. 4. CVA. 5. COPD. 6. Morbid obesity. MEDICATIONS: Include amlodipine, aspirin, Lipitor, lisinopril, Plavix, metoprolol, nifedipine, Protonix, and Zocor. ALLERGIES: He has no known drug allergies. SOCIAL HISTORY: He is . Does not smoke or drink alcohol. PHYSICAL EXAMINATION: VITAL SIGNS: Show blood pressure of 132/95, pulse is 96, respiration is 18. HEAD AND NECK: Shows positive JVD. LUNGS: Decreased breath sounds as well as wheezes. Lungs have coarse rhonchi. CARDIOVASCULAR: Shows regular S1 and S2 with no gallop. ABDOMEN: Soft. EXTREMITIES: 2+ pitting edema. LABORATORY AND DIAGNOSTIC DATA: Chest x-ray shows a sternotomy and bilateral vascular congestion. His labs show white count of 8.5, hemoglobin 10, hematocrit 32.8, and platelet of 151,000. Sodium 142, potassium 3.3, BUN of 22, creatinine 1.6, and glucose of 87. Troponin is negative x2. BNP is 8408. ASSESSMENT AND PLAN: 1. Exacerbation of congestive heart failure. Cardiac ejection fraction of only 35%. The patient also has moderate tricuspid regurgitation and severe pulmonary hypertension with PA pressures of 70. The patient is currently on Lasix drip at 10 mg/hour that will be continued. I will discontinue amlodipine and start him on Coreg, lisinopril, and Aldactone. We will watch for risk of hyperkalemia in view of mild renal failure with potassium currently low at 3.2. 2. Coronary artery disease with history of coronary artery bypass graft. He is on aspirin and beta-porsha. 3. Hypertension. Optimize heart failure medications further in view of the patient's EF of 35%. 4. Severe pulmonary hypertension. 5. COPD, on Levaquin and albuterol per Dr. Leroy. 6. History of CVA in 2007. 7. Obesity. 8. History of coronary bypass graft. Resume aspirin, Plavix, and Lipitor. Thank you very much for allowing me to participate in the care of this patient. Please do not hesitate to contact me for any questions regarding my evaluation. Madhav Leung M.D. DR: Wilber JOB#: [id number] CC:
--- NOTE | 2018-08-14 18:29 | NUR ---
NURSE NOTES: Pt noted struggling for breath while on 3L NC,need to eat dinner,called RT, and placed back to Bipap,12/5 Fio2 35%.,no further resp distress presented,pt remains sitting on chair.
--- NOTE | 2018-08-14 19:12 | NUR ---
HAND-OFF: Report given to Renita to tolerate kim Galvez RN.Pt unable to tolerate BIPAP for long periods.
--- NOTE | 2018-08-14 19:13 | NUR ---
NURSE NOTES: Received patient from Ericka Cervantes RN. Patient is sitting up in chair. On BiPAP with settings of 12/5 FiO2:35%. and showing no signs of pain/distress. Patient is still having shortness of breath but keeps removing BiPAP. Advise patient to keep BiPAP on. Will continue plan of care.
[2018-08-14 20:00] VITALS: BP 139/94
[2018-08-14] MEDS ORDERED: Tubing IV Secondary IV ONE (20:02)
[2018-08-14] MEDS ORDERED: NS 275ml ONE (20:02)
[2018-08-14] MEDS: Metoprolol 25mg tab ORAL SCH (20:59)
[2018-08-14] MEDS: Theophylline ER 100mg ORAL SCH (20:59)
[2018-08-14] MEDS: Tamsulosin 0.4mg cap ORAL SCH (20:59)
--- NOTE | 2018-08-14 23:04 | NUR ---
RESPIRATORY NOTE: PT KEEPS REMOVING BIPAP MASK. PT HAS NOTICEABLE CRACKLES. RISK AND BENEFITS EXPLAINED TO PATIENT. PT AGREED TO KEEP BIPAP MASK THROUGH NIGHT. SPONGED TAPE REMOVED AND REPLACED TO INSPECT FACE FOR SKIN BREAKDOWN . NO BREAKDOWN OR REDNESS NOTED. WILL CONTINUE TO MONITOR.
[2018-08-15] VITALS: BP 151/73
[2018-08-15 04:00] VITALS: BP 142/96
--- NOTE | 2018-08-15 04:40 | NUR ---
RESPIRATORY NOTE: PT REMAINED STABLE ON BIPAP. ALL VS WNL. BIPAP CIRCUIT AND MASK SECURE , IN PLACE AND OUT OF THE WAY. NO S/S/ OF RESPIRATORY DISTRESS NOTED AT THIS TIME.
--- NOTE | 2018-08-15 07:02 | NUR ---
NURSE NOTES: This AM Troponin resulted critically high of 0.366. Dr. Holden is aware.
--- NOTE | 2018-08-15 07:15 | NUR ---
HAND-OFF: Report given to Ericka Cervantes RN.
--- NOTE | 2018-08-15 07:20 | NUR ---
NURSE NOTES: Report received from Rosalva Galvez RN.Pt resting in bed awake,alert eating breakfast,on 3l NC tolerating well no resp dsitress presented,,denies any c/o pain or discomfort Afib on the monitor in and out STach.pt with Lainez cath to BSD draining yellow urine,IV site to LH intact with Lasix drip 100mg at 10 ml/hr,skin warm and dry,SR up x2,HOB elevated bed lock in lowest position,will continue with plans of care.
[2018-08-15 08:00] VITALS: BP 127/72
--- NOTE | 2018-08-15 08:00 | NUR ---
NURSE NOTES: Pt placed back in Bipap 12/ Fio2 35% after eating ,tolerating well,pt noted able to tolerate Bipap for longer periods at this time.Pt Febrile Temp 101.7 will give anti pyretic medic Tylenol 650 mg po.
[2018-08-15] MEDS: Aspirin EC 81mg tab ORAL SCH (09:19)
[2018-08-15] MEDS: Theophylline ER 100mg ORAL SCH ×2 (09:19→20:35)
[2018-08-15] MEDS: Metoprolol 25mg tab ORAL SCH ×2 (09:19→20:35)
[2018-08-15] MEDS: Heparin 5000 units/ml inj SUBQ SCH ×2 (09:24→20:37)
--- NOTE | 2018-08-15 10:26 | NUR ---
CASE MANAGEMENT: REVIEW 08/15/2018 SI: CHF EXACERBATION T 101.7 HR 105 RR 24 B/P 127/72 SATS 95% ON FULL FACE MASK FiO2 35 NO LABS TODAY IS: LASIX @ 10 mL/HR MARILYN DUR PO Q12H FLOMAX PO QHS ASA PO QD LOPRESSOR PO Q12H LEVAQUIN IV Q24H ARSENIO STATUS DCP: PATIENT IS FROM HOME
[2018-08-15 12:00] VITALS: BP 131/72
--- NOTE | 2018-08-15 12:32 | Cardiology Report ---
APPROVED REPORT EXAM: Two-dimensional and M-mode echocardiogram with Doppler and color Doppler. INDICATION Left Ventricular Function M-Mode DIMENSIONS IVSd1.4 (0.7-1.1cm)Left Atrium (MM)5.4 (1.6-4.0cm) LVDd5.6 (3.5-5.6cm)Aortic Root2.3 (2.0-3.7cm) PWd1.3 (0.7-1.1cm)Aortic Cusp Exc.1.8 (1.5-2.0cm) LVDs5.2 (2.5-4.0cm) PWs1.3 cm Technically difficult study due to patient on ventilator. Study quality precludes accurate assessment of regional wall motion. Normal left ventricular chamber size. Global left ventricular hypokinesis. Dyskinetic septal motion. Left ventricular ejection fraction estimated to be 35 %. Mild left ventricular hypertrophy. Anterior Echo-free space, may be due to pericardial fat or effusion. Mild bi-atrial enlargement. Right ventricular chamber sizes is at upper limits of normal. Aortic valve calcification with decreased cusp excursion c/w aortic stenosis. Mildly thickened mitral valve leaflets with normal excursion. Heavy mitral annulus and aortic root calcification. Normal pulmonic valve structure. Normal tricuspid valve structure. IVC dilated at 2.7 cm without physiological collapse, suggestive of increased RA pressure. A color flow and spectral Doppler study was performed and revealed: Trace aortic insufficiency. Peak aortic valve gradient of 40 mmHg and a mean of 23 mmHg. Aortic valve area 1.3 cm2 calculated by continuity equation. Moderate mitral regurgitation. Left ventricular diastolic function could not be determined due to arrhythmia. Moderate tricuspid regurgitation. Tricuspid systolic velocities suggests peak right ventricular systolic pressure of 67 mmHg, consistent with severe pulmonary hypertension. Mild pulmonic regurgitation present.
--- NOTE | 2018-08-15 12:55 | Internal Med Progress Note ---
Subjective Physician Name Philip Holden Attending Physician Philip Holden MD Current Medications Medications (Trade) Dose Ordered Sig/[place] Route PRN Reason Start Time Stop Time Status Last Admin Dose Admin Acetaminophen (Tylenol) 650 mg Q4H PRN ORAL Fever 08/13/18 17:45 09/12/18 17:44 08/15/18 09:34 Albuterol/ Ipratropium (Albuterol/ Ipratropium) 3 ml Q4H PRN HHN Shortness of Breath 08/13/18 17:45 08/18/18 17:44 08/14/18 20:32 Aspirin (Ecotrin) 81 mg DAILY ORAL 08/14/18 09:00 09/13/18 08:59 08/15/18 09:19 Dextrose (Dextrose 50%) 25 ml Q30M PRN IV Hypoglycemia 08/13/18 17:45 09/12/18 17:44 Dextrose (Dextrose 50%) 50 ml Q30M PRN IV Hypoglycemia 08/13/18 17:45 09/12/18 17:44 Furosemide 100 mg/ Dextrose 100 ml @ 10 mls/hr Q10H IV 08/14/18 14:00 09/13/18 13:59 08/15/18 09:34 Heparin Sodium (Porcine) (Heparin 5000 units/ml) 5,000 units EVERY 12 HOURS SUBQ 08/13/18 21:00 09/12/18 20:59 08/15/18 09:24 Levofloxacin 50 ml @ 50 mls/hr Q24H IVPB 08/15/18 13:00 08/22/18 12:59 Metoprolol Tartrate (Lopressor) 25 mg Q12HR ORAL 08/14/18 21:00 09/13/18 20:59 08/15/18 09:19 Nitroglycerin (Ntg) 0.4 mg Q5M PRN SL Prn Chest Pain 08/13/18 16:15 09/12/18 16:14 08/13/18 16:15 Ondansetron HCl (Zofran) 4 mg Q6H PRN IVP Nausea & Vomiting 08/13/18 17:45 09/12/18 17:44 Polyethylene Glycol (Miralax) 17 gm DAILYPRN PRN ORAL Constipation 08/13/18 17:45 09/12/18 17:44 Promethazine HCl/ Codeine (Phenergan with Codeine) 5 ml Q4H PRN ORAL For Cough 08/14/18 12:30 09/13/18 12:29 Tamsulosin HCl (Flomax) 0.4 mg BEDTIME ORAL 08/13/18 21:00 09/12/18 20:59 08/14/18 20:59 Temazepam (Restoril) 15 mg HSPRN PRN ORAL Insomnia 08/13/18 17:45 08/20/18 17:44 08/14/18 22:40 Theophylline (Dheeraj-Dur) 100 mg EVERY 12 HOURS ORAL 08/14/18 21:00 09/13/18 20:59 08/15/18 09:19 Allergies: Coded Allergies: No Known Allergies (Unverified , 02/28/16) Subjective Awake, alert, responsive, No CP, No N/V, on BiPAP in ARSENIO, I/O = -950 . Objective Last Vital Signs Date Time Temp Pulse Resp B/P (MAP) Pulse Ox O2 Delivery O2 Flow Rate FiO2 08/15/18 12:00 35 08/15/18 12:00 98.4 69 18 131/72 (91) 98 08/15/18 12:00 Bi-pap 08/15/18 08:00 3.0 Laboratory Tests Test 08/15/18 05:40 Troponin I 0.366 ng/mL (0.000-0.056) Pro-B-Type Natriuretic Peptide 41659 pg/mL (0-125) H Intake and Output 08/14/18 08/15/18 19:00 07:00 Intake Total 740 ml 310 ml Output Total 1301 ml 4120 ml Balance -561 ml -3810 ml Intake Oral 680 ml 200 ml IV Total 60 ml 110 ml Output Urine Total 1301 ml 4120 ml Objective GENERAL: The patient is a well-developed and well-nourished white male, On BiPAP. HEENT: Eyes, pupils equal and responsive to light and accommodation. Extraocular movements intact. NECK: Supple, No lymphadenopathy. CHEST: bilateral air entry, Diffuse wheezes in bilateral lung higgins. ABDOMEN: Soft, nontender, and nondistended. Positive bowel sounds. no rebound or guarding, morbid obesity. : Lainez cath EXTREMITIES: Negative for clubbing, cyanosis, +2 LE's edema. RECTAL AND GENITAL: Refused. NEUROLOGIC: Cranial nerves II through XII are grossly intact without focal deficits. Motor strength is 5/5 bilaterally. Assessment/Plan Assessment/Plan 1. Acute hypoxemic respiratory failure. 2. Acute on Chronic Congestive heart failure. 3. Coronary artery disease. 4. Cerebrovascular disease. 5. Morbid Obesity. 6. Hypokalemia. TREATMENT: 1. Shortness of breath. Most likely due to Acute congestive heart failure, on Lasix Drip. 2. Congestive heart failure/coronary artery disease. Cardiology, Dr. Madhav Leung and Pulmonary: Dr. Leroy, 3. Cerebrovascular disease. 4. Edema of bilateral legs. 5. Code status: Full code 6. Wean off BiPAP. 7. DVT prophylaxis : Heparin SQ 8. Levaquin IV 2D Echo: Technically difficult study due to patient on ventilator. Study quality precludes accurate assessment of regional wall motion. Normal left ventricular chamber size. Global left ventricular hypokinesis. Dyskinetic septal motion. Left ventricular ejection fraction estimated to be 35 %. Mild left ventricular hypertrophy. Anterior Echo-free space, may be due to pericardial fat or effusion. Mild bi-atrial enlargement. Right ventricular chamber sizes is at upper limits of normal. Aortic valve calcification with decreased cusp excursion c/w aortic stenosis. Mildly thickened mitral valve leaflets with normal excursion. Heavy mitral annulus and aortic root calcification. Normal pulmonic valve structure. Normal tricuspid valve structure. IVC dilated at 2.7 cm without physiological collapse, suggestive of increased RA pressure. A color flow and spectral Doppler study was performed and revealed: Trace aortic insufficiency. Peak aortic valve gradient of 40 mmHg and a mean of 23 mmHg. Aortic valve area 1.3 cm2 calculated by continuity equation. Moderate mitral regurgitation. Left ventricular diastolic function could not be determined due to arrhythmia. Moderate tricuspid regurgitation. Tricuspid systolic velocities suggests peak right ventricular systolic pressure of 67 mmHg, consistent with severe pulmonary hypertension. Mild pulmonic regurgitation present. Philip Holden M.D. Philip Holden MD Aug 15, 2018 12:55
[2018-08-15] MEDS ORDERED: Levofloxacin 250mg/D5W 50ml IVPB SCH (13:00)
--- NOTE | 2018-08-15 15:56 | Cardiac Electrophysiology PN ---
Assessment/Plan Assessment/Plan 1. Exacerbation of congestive heart failure. EF 35% with BNP>73205. The patient also has moderate tricuspid regurgitation and severe pulmonary hypertension with PA pressures of 70. Continue Lasix drip at 10 mg/hour and Metoprolol 25 bid. Add lisinopril, and Aldactone and watch for risk of hyperkalemia in view of mild renal failure 2. S/P CABG on aspirin and beta-porsha. 3. Hypertension. Optimize heart failure medications first in view of EF of 35%. 4. Severe pulmonary hypertension. 5. COPD, on Levaquin and albuterol per Dr. Leroy. 6. History of CVA in 2007. 7. Obesity. DW RN Subjective Subjective On BIPAP and Lasix drip Objective Last 24 Hour Vital Signs Date Time Temp Pulse Resp B/P (MAP) Pulse Ox O2 Delivery O2 Flow Rate FiO2 08/15/18 14:52 99 24 98 Full Face 35 08/15/18 12:57 101 20 97 Full Face 35 08/15/18 12:00 35 08/15/18 12:00 98.4 69 18 131/72 (91) 98 08/15/18 12:00 68 08/15/18 12:00 Bi-pap 08/15/18 10:37 95 22 99 Full Face 35 08/15/18 10:00 98.4 08/15/18 09:19 105 127/72 08/15/18 09:01 95 20 99 Full Face 35 08/15/18 08:00 112 08/15/18 08:00 101.7 105 24 127/72 (90) 95 08/15/18 08:00 Bi-pap 08/15/18 08:00 3.0 08/15/18 07:00 99 20 98 Full Face 35 08/15/18 04:40 100 24 97 Full Face 35 08/15/18 04:00 35 08/15/18 04:00 100.4 109 27 142/96 (111) 98 08/15/18 04:00 Bi-pap 08/15/18 03:54 108 08/15/18 02:51 99 17 97 Full Face 35 08/15/18 01:05 103 31 94 Full Face 35 08/15/18 00:00 98.6 94 22 151/73 (99) 94 08/15/18 00:00 Bi-pap 08/15/18 00:00 35 08/14/18 23:37 97 08/14/18 23:04 90 19 98 Full Face 35 08/14/18 22:57 89 17 96 Facial 35 08/14/18 20:59 96 139/94 08/14/18 20:42 96 20 100 Bi-pap 40 08/14/18 20:32 106 24 97 Bi-pap 30 08/14/18 20:13 103 18 98 Facial 35 08/14/18 20:00 Bi-pap 08/14/18 20:00 98.4 101 17 139/94 (109) 100 08/14/18 20:00 35 08/14/18 19:36 106 08/14/18 17:20 95 18 97 08/14/18 16:14 108 08/14/18 16:00 98.4 104 26 152/88 (109) 99 08/14/18 16:00 Bi-pap Intake and Output 08/14/18 08/15/18 19:00 07:00 Intake Total 740 ml 310 ml Output Total 1301 ml 4120 ml Balance -561 ml -3810 ml Intake Oral 680 ml 200 ml IV Total 60 ml 110 ml Output Urine Total 1301 ml 4120 ml Laboratory Tests Test 08/15/18 05:40 Troponin I 0.366 ng/mL (0.000-0.056) Pro-B-Type Natriuretic Peptide 71703 pg/mL (0-125) H Objective HEAD AND NECK: Positive JVD.BIPAP on. LUNGS: Decreased breath sounds as well as wheezes. Lungs have coarse rhonchi. CARDIOVASCULAR: Shows regular S1 and S2 with no gallop. ABDOMEN: Soft. EXTREMITIES: 2+ pitting edema. Madhav Leung MD Aug 15, 2018 15:56
[2018-08-15 16:00] VITALS: BP 134/74
--- NOTE | 2018-08-15 17:00 | NUR ---
NURSE NOTES: Pt pulled out IV to Lt hand,no trauma noted on the skin site ,will try to re insert IV.
--- NOTE | 2018-08-15 17:01 | NUR ---
RESPIRATORY NOTE: Received pt on current BiPAP settings @0700. Pt BiPAP mask removed and repositioned throughout shift Q2hrs to offset pressure and assess for any skin breakdown. No redness noted. BiPAP alarms are on and audible. BiPAP plugged into red outlet. Will monitor pt progress.
--- NOTE | 2018-08-15 19:00 | NUR ---
RESPIRATORY NOTE: PT. RECEIVED STABLE ON 5LPM N/C WITH AN SPO2 OF 95%, HR 70BPM, RR 22. PT REQUESTED TO BE PLACED ON BIPAP AT A LATER TIME. PT PLACED ON BIPAP AT 2119. SPONGE TAPE SECURELY PLACED NO SKIN BREAKDOWN. PT ON FACIAL MASK AND TOLERATING BIPAP WELL. NO S/S OF RESPIRATORY DISTRESS NOTED AT THIS TIME. WILL CONTINUE TO MONITOR.
--- NOTE | 2018-08-15 19:05 | NUR ---
HAND-OFF: Report given to Rosalva Galvez RN..
--- NOTE | 2018-08-15 19:06 | NUR ---
NURSE NOTES: Received patient from Ericka Cervantes RN. Patient is awake, alert and oriented x4. Patient is on 5L nasal cannula and saturating at 98%. Patient states he is not in any pain and/or distress. Lainez catheter is intact and draining. Will continue plan of care.
[2018-08-15 20:00] VITALS: BP 128/53
[2018-08-15] MEDS: Tamsulosin 0.4mg cap ORAL SCH (20:35)
--- NOTE | 2018-08-15 22:54 | Physician Query ---
--------- THIS DOCUMENT IS A PERMANENT PART OF THE MEDICAL RECORD --------- PLEASE COMPLETE THE DOCUMENT BEFORE SIGNING Dear Dr. Elvira BAUTISTA Date: __08/15/18 Allergy And Immunology Chief/CDS Name: Torrey CERVANTES Allergy And Immunology Chief / CDS Phone # Exercise your independent professional judgment when responding to query. Question asked do not imply a particular answer is desired/expected Clinical Documentation States: "Acute on Chronic Congestive heart failure" documented in H&P Clinical Findings Show: BNP = 18897, 8408 pg/ml Echocardiogram LVEF = 35% DIURETIC = FUROSEMIDE 40 mg IV EVERY 8 HOURS; FUROSEMIDE 100ML/Dextrose @ 10 ml/ hr Please specify the TYPE of CHF: Type [x] Systolic [] Diastolic [] Systolic & Diastolic (Combined) [] Left Heart failure [] Other: Etiology [x] CHF due to Hypertension [] Cardiomyopathy [] Valvular Heart Disease [] Coronary Artery Disease [] Unable to determine [] Other: Condition Present on Admission: [x] Yes [] No []Clinically Undeterminable Please also document in your Progress Notes and/or Discharge Summary and indicate if the condition was present on admission. JULIO C BAUTISTA M.D. DATE & TIME [facility]
[2018-08-16] VITALS: BP 124/60
[2018-08-16 04:00] VITALS: BP 148/66
--- NOTE | 2018-08-16 04:55 | NUR ---
RESPIRATORY NOTE: PT. REMAINED STABLE ON BIPAP AND REQUESTED TO BE OFF BIPAP. PT AGREED TO RESUME BIPAP THERAPY AT A LATER TIME TODAY. PT IS CURRENT ON 5LPM N/C SPO2 97%. ALL VS WNL. NO S/S OF RESPIRATORY DISTRESS NOTED AT THIS TIME.
[2018-08-16 05:19] LABS: BASOPHILS % (AUTO) 1.1 % (0.0-2.0); EOSINOPHILS % (AUTO) 0.8 % (0.0-3.0); HEMATOCRIT 32.5 % (42.0-52.0); HEMOGLOBIN 10.1 G/DL (14.2-18.0); LYMPHOCYTES % (AUTO) 34.9 % (20.0-45.0); MEAN CORPUSCULAR VOLUME 76 FL (80-99); MONOCYTES % (AUTO) 12.8 % (1.0-10.0); NEUTROPHILS % (AUTO) 50.5 % (45.0-75.0); PLATELET COUNT 139 K/UL (150-450); RED BLOOD COUNT 4.28 M/UL (4.70-6.10); RED CELL DISTRIBUTION WIDTH 20.3 % (11.6-14.8)
[2018-08-16 06:02] LABS: ALANINE AMINOTRANSFERASE 13 U/L (12-78); ALBUMIN/GLOBULIN RATIO 0.7 (1.0-2.7); ALKALINE PHOSPHATASE 119 U/L (46-116); ANION GAP 8 mmol/L (5-15); ASPARTATE AMINO TRANSFERASE 38 U/L (15-37); BILIRUBIN,TOTAL 1.3 MG/DL (0.2-1.0); BLOOD UREA NITROGEN 25 mg/dL (7-18); CALCIUM 8.3 MG/DL (8.5-10.1); CARBON DIOXIDE 35 MMOL/L (21-32); CHLORIDE 99 MMOL/L (98-107); CREATININE 1.7 MG/DL (0.55-1.30); PHOSPHORUS 3.1 MG/DL (2.5-4.9); SODIUM 142 MMOL/L (136-145)
[2018-08-16 06:08] LABS: POTASSIUM 2.3 MMOL/L (3.5-5.1)
[2018-08-16 06:10] LABS: BILIRUBIN,DIRECT 0.6 MG/DL (0.0-0.3)
--- NOTE | 2018-08-16 06:13 | NUR ---
NURSE NOTES: Left message for Dr. Leroy regarding patient's critical abnormal lab value of Potassium resulting 2.3. Awaiting new orders/further instructions.
--- NOTE | 2018-08-16 07:30 | NUR ---
HAND-OFF: Report given to Ericka Kraft RN.
[2018-08-16 08:00] VITALS: BP 114/49
--- NOTE | 2018-08-16 08:00 | NUR ---
NURSE NOTES: received pt in the bed, awake, alert, oriented, vital signs stable, no complain pain, no SOB at this time, O2 4l via nasal canula, skin warm and dry to touch, intact, Lainez with yellow urine, pt on Lasix drip, bed in low position, call light within reach.
[2018-08-16] MEDS: Theophylline ER 100mg ORAL SCH ×2 (08:39→21:00)
[2018-08-16] MEDS: Aspirin EC 81mg tab ORAL SCH (08:39)
[2018-08-16] MEDS: Heparin 5000 units/ml inj SUBQ SCH ×2 (08:41→21:00)
[2018-08-16] MEDS ORDERED: Lisinopril 10mg tab ORAL SCH (09:00)
[2018-08-16] MEDS ORDERED: Spironolactone 25mg tab ORAL SCH (09:00)
--- NOTE | 2018-08-16 09:31 | NUR ---
RADIOLOGY DEPT CHEST X-RAY DONE.-P.DYE
[2018-08-16 12:00] VITALS: BP 132/48
--- NOTE | 2018-08-16 12:03 | Diagnostic Imaging Report ---
Indication: Cough Technique: One view of the chest Comparison: 08/14/2018 Findings: Interstitial edema and bilateral pleural effusions are again demonstrated. Cardiomegaly persists. Again demonstrated is a prosthetic aortic valve and evidence of prior median sternotomy Findings are overall unchanged Impression: Unchanged, over 2 days, findings as above.
--- NOTE | 2018-08-16 12:24 | Pulmonology Progress Note ---
Assessment/Plan Problems: (1) Acute respiratory failure (2) CHF (congestive heart failure) (3) Acute bronchitis (4) COPD (chronic obstructive pulmonary disease) (5) HTN (hypertension) (6) CHF exacerbation Assessment/Plan continue lasix drip check intake and output BNP daily, watch electrolytes monitor in [facility] respiratory treatment check electrolytes. Subjective ROS Limited/Unobtainable: No Interval Events: late note for 08/15/ still on bipap Constitutional: Reports: no symptoms HEENT: Repors: no symptoms Allergies: Coded Allergies: No Known Allergies (Unverified , 02/28/16) Objective Last 24 Hour Vital Signs Date Time Temp Pulse Resp B/P (MAP) Pulse Ox O2 Delivery O2 Flow Rate FiO2 08/16/18 12:00 4.0 08/16/18 12:00 Bi-pap 08/16/18 12:00 97.6 65 23 132/48 (76) 91 08/16/18 11:12 100 20 97 08/16/18 09:28 107 20 94 Facial 35 08/16/18 09:00 73 08/16/18 09:00 105/70 08/16/18 08:00 99.1 66 21 114/49 (70) 92 08/16/18 08:00 3.0 08/16/18 08:00 Bi-pap 08/16/18 07:33 103 20 96 08/16/18 04:55 73 20 97 08/16/18 04:00 Bi-pap 08/16/18 04:00 35 08/16/18 04:00 97.3 57 16 148/66 (93) 100 08/16/18 03:27 71 08/16/18 03:10 56 18 97 Facial 35 08/16/18 01:10 59 18 96 Facial 35 08/16/18 00:00 98.1 58 20 124/60 (81) 97 08/16/18 00:00 Bi-pap 08/15/18 23:20 68 08/15/18 23:05 53 17 95 Facial 35 08/15/18 21:20 62 22 97 Facial 35 08/15/18 20:35 97 128/53 08/15/18 20:00 98.4 97 20 128/53 (78) 98 08/15/18 20:00 35 08/15/18 20:00 Bi-pap 08/15/18 19:24 79 2/10/19 19:00 70 22 95 08/15/18 17:01 98 18 96 Full Face 35 08/15/18 16:00 74 08/15/18 16:00 35 08/15/18 16:00 97.8 68 18 134/74 (94) 95 08/15/18 16:00 Bi-pap 08/15/18 14:52 99 24 98 Full Face 35 08/15/18 12:57 101 20 97 Full Face 35 Intake and Output 08/15/18 08/16/18 18:59 06:59 Intake Total 840 ml 289.25 ml Output Total 5200 ml 3000 ml Balance -4360 ml -2710.75 ml Intake Oral 830 ml 200 ml IV Total 10 ml 89.25 ml Output Urine Total 5200 ml 3000 ml General Appearance: WD/WN HEENT: atraumatic, anicteric Respiratory/Chest: chest wall non-tender, normal breath sounds, crackles/rales Cardiovascular: normal peripheral pulses, normal rate Abdomen: normal bowel sounds, no organomegaly Genitourinary: normal external genitalia Skin: no rash Microbiology Date/Time Source Procedure Growth Status 08/15/18 00:15 Sputum Gram Stain - Final Resulted 08/15/18 00:15 Sputum Sputum Culture - Preliminary NORMAL UPPER RESPIRATORY YULIA PRESENT Resulted Laboratory Tests 08/15/18 17:45: Troponin I 0.282H 08/16/18 03:20: White Blood Count 7.0, Red Blood Count 4.28L, Hemoglobin 10.1L, Hematocrit 32.5L , Mean Corpuscular Volume 76L, Mean Corpuscular Hemoglobin 23.6L, Mean Corpuscular Hemoglobin Concent 31.0L, Red Cell Distribution Width 20.3H, Platelet Count 139L, Mean Platelet Volume 8.8, Neutrophils (%) (Auto) 50.5, Lymphocytes (%) (Auto) 34.9, Monocytes (%) (Auto) 12.8H, Eosinophils (%) (Auto) 0.8, Basophils (%) (Auto) 1.1, Sodium Level 142, Potassium Level 2.3*L, Chloride Level 99, Carbon Dioxide Level 35H, Anion Gap 8, Blood Urea Nitrogen 25H, Creatinine 1.7H, Estimat Glomerular Filtration Rate 40.0, Glucose Level 73L , Calcium Level 8.3L, Phosphorus Level 3.1, Magnesium Level 1.5L, Total Bilirubin 1.3H, Direct Bilirubin 0.6H, Aspartate Amino Transf (AST/SGOT) 38H, Alanine Aminotransferase (ALT/SGPT) 13, Alkaline Phosphatase 119H, Pro-B-Type Natriuretic Peptide 44238F, Total Protein 7.3, Albumin 3.0L, Globulin 4.3, Albumin/Globulin Ratio 0.7L Current Medications Medications (Trade) Dose Ordered Sig/[place] Route PRN Reason Start Time Stop Time Status Last Admin Dose Admin Acetaminophen (Tylenol) 650 mg Q4H PRN ORAL Fever 08/13/18 17:45 09/12/18 17:44 08/15/18 09:34 Albuterol/ Ipratropium (Albuterol/ Ipratropium) 3 ml Q4H PRN HHN Shortness of Breath 08/13/18 17:45 08/18/18 17:44 08/14/18 20:32 Aspirin (Ecotrin) 81 mg DAILY ORAL 08/14/18 09:00 09/13/18 08:59 08/16/18 08:39 Dextrose (Dextrose 50%) 25 ml Q30M PRN IV Hypoglycemia 08/13/18 17:45 09/12/18 17:44 Dextrose (Dextrose 50%) 50 ml Q30M PRN IV Hypoglycemia 08/13/18 17:45 09/12/18 17:44 Furosemide 100 mg/ Dextrose 100 ml @ 10 mls/hr Q10H IV 08/14/18 14:00 09/13/18 13:59 08/16/18 05:33 Heparin Sodium (Porcine) (Heparin 5000 units/ml) 5,000 units EVERY 12 HOURS SUBQ 08/13/18 21:00 09/12/18 20:59 08/16/18 08:41 Levofloxacin 50 ml @ 50 mls/hr Q24H IVPB 08/15/18 13:00 08/22/18 12:59 08/15/18 13:13 Lisinopril (Zestril) 10 mg DAILY ORAL 08/16/18 09:00 09/15/18 08:59 Metoprolol Tartrate (Lopressor) 25 mg Q12HR ORAL 08/14/18 21:00 09/13/18 20:59 08/15/18 20:35 Nitroglycerin (Ntg) 0.4 mg Q5M PRN SL Prn Chest Pain 08/13/18 16:15 09/12/18 16:14 08/13/18 16:15 Ondansetron HCl (Zofran) 4 mg Q6H PRN IVP Nausea & Vomiting 08/13/18 17:45 09/12/18 17:44 Polyethylene Glycol (Miralax) 17 gm DAILYPRN PRN ORAL Constipation 08/13/18 17:45 09/12/18 17:44 Potassium Chloride (K-Dur) 50 meq BID ORAL 08/16/18 09:00 08/16/18 23:59 08/16/18 08:39 Promethazine HCl/ Codeine (Phenergan with Codeine) 5 ml Q4H PRN ORAL For Cough 08/14/18 12:30 09/13/18 12:29 Spironolactone (Aldactone) 25 mg DAILY ORAL 08/16/18 09:00 09/15/18 08:59 08/16/18 08:40 Tamsulosin HCl (Flomax) 0.4 mg BEDTIME ORAL 08/13/18 21:00 09/12/18 20:59 08/15/18 20:35 Temazepam (Restoril) 15 mg HSPRN PRN ORAL Insomnia 08/13/18 17:45 08/20/18 17:44 08/15/18 22:50 Theophylline (Dheeraj-Dur) 100 mg EVERY 12 HOURS ORAL 08/14/18 21:00 09/13/18 20:59 08/16/18 08:39 Dat Leroy MD Aug 16, 2018 12:24
--- NOTE | 2018-08-16 12:26 | Pulmonology Progress Note ---
Assessment/Plan Problems: (1) Acute respiratory failure (2) CHF (congestive heart failure) (3) Acute bronchitis (4) COPD (chronic obstructive pulmonary disease) (5) HTN (hypertension) (6) CHF exacerbation Assessment/Plan hold lasix drip check troponin Echo reviewed, EF is 35% check intake and output BNP daily, watch electrolytes monitor in [facility] respiratory treatment check electrolytes. Subjective Interval Events: diuresed 13 liters so far Allergies: Coded Allergies: No Known Allergies (Unverified , 02/28/16) Objective Last 24 Hour Vital Signs Date Time Temp Pulse Resp B/P (MAP) Pulse Ox O2 Delivery O2 Flow Rate FiO2 08/16/18 12:00 4.0 08/16/18 12:00 Bi-pap 08/16/18 12:00 97.6 65 23 132/48 (76) 91 08/16/18 11:12 100 20 97 08/16/18 09:28 107 20 94 Facial 35 08/16/18 09:00 73 08/16/18 09:00 105/70 08/16/18 08:00 99.1 66 21 114/49 (70) 92 08/16/18 08:00 3.0 08/16/18 08:00 Bi-pap 08/16/18 07:33 103 20 96 08/16/18 04:55 73 20 97 08/16/18 04:00 Bi-pap 08/16/18 04:00 35 08/16/18 04:00 97.3 57 16 148/66 (93) 100 08/16/18 03:27 71 08/16/18 03:10 56 18 97 Facial 35 08/16/18 01:10 59 18 96 Facial 35 08/16/18 00:00 98.1 58 20 124/60 (81) 97 08/16/18 00:00 Bi-pap 08/15/18 23:20 68 08/15/18 23:05 53 17 95 Facial 35 08/15/18 21:20 62 22 97 Facial 35 08/15/18 20:35 97 128/53 08/15/18 20:00 98.4 97 20 128/53 (78) 98 08/15/18 20:00 35 08/15/18 20:00 Bi-pap 08/15/18 19:24 79 08/15/18 19:00 70 22 95 08/15/18 17:01 98 18 96 Full Face 35 08/15/18 16:00 74 08/15/18 16:00 35 08/15/18 16:00 97.8 68 18 134/74 (94) 95 08/15/18 16:00 Bi-pap 08/15/18 14:52 99 24 98 Full Face 35 08/15/18 12:57 101 20 97 Full Face 35 Intake and Output 08/15/18 08/16/18 18:59 06:59 Intake Total 840 ml 289.25 ml Output Total 5200 ml 3000 ml Balance -4360 ml -2710.75 ml Intake Oral 830 ml 200 ml IV Total 10 ml 89.25 ml Output Urine Total 5200 ml 3000 ml General Appearance: WD/WN HEENT: normocephalic Respiratory/Chest: chest wall non-tender, crackles/rales Cardiovascular: normal peripheral pulses, normal rate Abdomen: normal bowel sounds, soft, non tender Genitourinary: normal external genitalia Extremities: no clubbing Lymphatic: no neck adenopathy Microbiology Date/Time Source Procedure Growth Status 08/15/18 00:15 Sputum Gram Stain - Final Resulted 08/15/18 00:15 Sputum Sputum Culture - Preliminary NORMAL UPPER RESPIRATORY [facility] PRESENT Resulted Laboratory Tests 08/15/18 17:45: Troponin I 0.282H 08/16/18 03:20: White Blood Count 7.0, Red Blood Count 4.28L, Hemoglobin 10.1L, Hematocrit 32.5L , Mean Corpuscular Volume 76L, Mean Corpuscular Hemoglobin 23.6L, Mean Corpuscular Hemoglobin Concent 31.0L, Red Cell Distribution Width 20.3H, Platelet Count 139L, Mean Platelet Volume 8.8, Neutrophils (%) (Auto) 50.5, Lymphocytes (%) (Auto) 34.9, Monocytes (%) (Auto) 12.8H, Eosinophils (%) (Auto) 0.8, Basophils (%) (Auto) 1.1, Sodium Level 142, Potassium Level 2.3*L, Chloride Level 99, Carbon Dioxide Level 35H, Anion Gap 8, Blood Urea Nitrogen 25H, Creatinine 1.7H, Estimat Glomerular Filtration Rate 40.0, Glucose Level 73L , Calcium Level 8.3L, Phosphorus Level 3.1, Magnesium Level 1.5L, Total Bilirubin 1.3H, Direct Bilirubin 0.6H, Aspartate Amino Transf (AST/SGOT) 38H, Alanine Aminotransferase (ALT/SGPT) 13, Alkaline Phosphatase 119H, Pro-B-Type Natriuretic Peptide 99846X, Total Protein 7.3, Albumin 3.0L, Globulin 4.3, Albumin/Globulin Ratio 0.7L Current Medications Medications (Trade) Dose Ordered Sig/[place] Route PRN Reason Start Time Stop Time Status Last Admin Dose Admin Acetaminophen (Tylenol) 650 mg Q4H PRN ORAL Fever 08/13/18 17:45 09/12/18 17:44 08/15/18 09:34 Albuterol/ Ipratropium (Albuterol/ Ipratropium) 3 ml Q4H PRN HHN Shortness of Breath 08/13/18 17:45 08/18/18 17:44 08/14/18 20:32 Aspirin (Ecotrin) 81 mg DAILY ORAL 08/14/18 09:00 09/13/18 08:59 08/16/18 08:39 Dextrose (Dextrose 50%) 25 ml Q30M PRN IV Hypoglycemia 08/13/18 17:45 09/12/18 17:44 Dextrose (Dextrose 50%) 50 ml Q30M PRN IV Hypoglycemia 08/13/18 17:45 09/12/18 17:44 Furosemide 100 mg/ Dextrose 100 ml @ 10 mls/hr Q10H IV 08/14/18 14:00 09/13/18 13:59 08/16/18 05:33 Heparin Sodium (Porcine) (Heparin 5000 units/ml) 5,000 units EVERY 12 HOURS SUBQ 08/13/18 21:00 09/12/18 20:59 08/16/18 08:41 Levofloxacin 50 ml @ 50 mls/hr Q24H IVPB 08/15/18 13:00 08/22/18 12:59 08/15/18 13:13 Lisinopril (Zestril) 10 mg DAILY ORAL 08/16/18 09:00 09/15/18 08:59 Metoprolol Tartrate (Lopressor) 25 mg Q12HR ORAL 08/14/18 21:00 09/13/18 20:59 08/15/18 20:35 Nitroglycerin (Ntg) 0.4 mg Q5M PRN SL Prn Chest Pain 08/13/18 16:15 09/12/18 16:14 08/13/18 16:15 Ondansetron HCl (Zofran) 4 mg Q6H PRN IVP Nausea & Vomiting 08/13/18 17:45 09/12/18 17:44 Polyethylene Glycol (Miralax) 17 gm DAILYPRN PRN ORAL Constipation 08/13/18 17:45 09/12/18 17:44 Potassium Chloride (K-Dur) 50 meq BID ORAL 08/16/18 09:00 08/16/18 23:59 08/16/18 08:39 Promethazine HCl/ Codeine (Phenergan with Codeine) 5 ml Q4H PRN ORAL For Cough 08/14/18 12:30 09/13/18 12:29 Spironolactone (Aldactone) 25 mg DAILY ORAL 08/16/18 09:00 09/15/18 08:59 08/16/18 08:40 Tamsulosin HCl (Flomax) 0.4 mg BEDTIME ORAL 08/13/18 21:00 09/12/18 20:59 08/15/18 20:35 Temazepam (Restoril) 15 mg HSPRN PRN ORAL Insomnia 08/13/18 17:45 08/20/18 17:44 08/15/18 22:50 Theophylline (Dheeraj-Dur) 100 mg EVERY 12 HOURS ORAL 08/14/18 21:00 09/13/18 20:59 08/16/18 08:39 Dat Leroy MD Aug 16, 2018 12:26
[2018-08-16] MEDS: Metoprolol 25mg tab ORAL SCH ×2 (12:58→21:00)
--- NOTE | 2018-08-16 13:44 | Infectious Diseases Prog Note ---
Assessment/Plan Problems: (1) Cellulitis of both lower extremities Assessment & Plan: will start cefazolin empiric coverage, await venous doppler for DVT eval , keep legs elevated all the time while in bed (2) COPD (chronic obstructive pulmonary disease) Assessment & Plan: with possible exacerbation, continue inhalers , antibiotics and oxygen with neb treatment as needed (3) CHF exacerbation Assessment & Plan: continue diuretics as per cardiology (4) Fever Assessment & Plan: suspect due to the above, will send blood culture x2, continue antibiotics , and tylenol as needed (5) Onychomycosis Assessment & Plan: will start lamisil for three months, this might be contributing factor to his cellulitis Subjective Allergies: Coded Allergies: No Known Allergies (Unverified , 02/28/16) Objective Vital Signs Last 24 Hour Vital Signs Date Time Temp Pulse Resp B/P (MAP) Pulse Ox O2 Delivery O2 Flow Rate FiO2 08/16/18 12:58 68 132/48 08/16/18 12:00 68 08/16/18 12:00 4.0 08/16/18 12:00 Bi-pap 08/16/18 12:00 97.6 65 23 132/48 (76) 91 08/16/18 11:12 100 20 97 08/16/18 09:28 107 20 94 Facial 35 08/16/18 09:00 73 08/16/18 09:00 105/70 08/16/18 08:00 99.1 66 21 114/49 (70) 92 08/16/18 08:00 3.0 08/16/18 08:00 Bi-pap 08/16/18 07:33 103 20 96 08/16/18 04:55 73 20 97 08/16/18 04:00 Bi-pap 08/16/18 04:00 35 08/16/18 04:00 97.3 57 16 148/66 (93) 100 08/16/18 03:27 71 08/16/18 03:10 56 18 97 Facial 35 08/16/18 01:10 59 18 96 Facial 35 08/16/18 00:00 98.1 58 20 124/60 (81) 97 08/16/18 00:00 Bi-pap 08/15/18 23:20 68 08/15/18 23:05 53 17 95 Facial 35 08/15/18 21:20 62 22 97 Facial 35 08/15/18 20:35 97 128/53 08/15/18 20:00 98.4 97 20 128/53 (78) 98 08/15/18 20:00 35 08/15/18 20:00 Bi-pap 08/15/18 19:24 79 08/15/18 19:00 70 22 95 08/15/18 17:01 98 18 96 Full Face 35 08/15/18 16:00 74 08/15/18 16:00 35 08/15/18 16:00 97.8 68 18 134/74 (94) 95 08/15/18 16:00 Bi-pap 08/15/18 14:52 99 24 98 Full Face 35 Height (Feet): 5 Height (Inches): 10.00 Weight (Pounds): 237 Microbiology Date/Time Source Procedure Growth Status 08/15/18 00:15 Sputum Gram Stain - Final Resulted 08/15/18 00:15 Sputum Sputum Culture - Preliminary NORMAL UPPER RESPIRATORY Y[facility] PRESENT Resulted Laboratory Tests Test 08/15/18 17:45 08/16/18 03:20 Troponin I 0.282 ng/mL (0.000-0.056) White Blood Count 7.0 K/UL (4.8-10.8) Red Blood Count 4.28 M/UL (4.70-6.10) L Hemoglobin 10.1 G/DL (14.2-18.0) L Hematocrit 32.5 % (42.0-52.0) L Mean Corpuscular Volume 76 FL (80-99) L Mean Corpuscular Hemoglobin 23.6 PG (27.0-31.0) L Mean Corpuscular Hemoglobin Concent 31.0 G/DL (32.0-36.0) L Red Cell Distribution Width 20.3 % (11.6-14.8) H Platelet Count 139 K/UL (150-450) L Mean Platelet Volume 8.8 FL (6.5-10.1) Neutrophils (%) (Auto) 50.5 % (45.0-75.0) Lymphocytes (%) (Auto) 34.9 % (20.0-45.0) Monocytes (%) (Auto) 12.8 % (1.0-10.0) H Eosinophils (%) (Auto) 0.8 % (0.0-3.0) Basophils (%) (Auto) 1.1 % (0.0-2.0) Sodium Level 142 MMOL/L (136-145) Potassium Level 2.3 MMOL/L (3.5-5.1) *L Chloride Level 99 MMOL/L (98-107) Carbon Dioxide Level 35 MMOL/L (21-32) H Anion Gap 8 mmol/L (5-15) Blood Urea Nitrogen 25 mg/dL (7-18) H Creatinine 1.7 MG/DL (0.55-1.30) H Estimat Glomerular Filtration Rate 40.0 mL/min (>60) Glucose Level 73 MG/DL (74-106) L Calcium Level 8.3 MG/DL (8.5-10.1) L Phosphorus Level 3.1 MG/DL (2.5-4.9) Magnesium Level 1.5 MG/DL (1.8-2.4) L Total Bilirubin 1.3 MG/DL (0.2-1.0) H Direct Bilirubin 0.6 MG/DL (0.0-0.3) H Aspartate Amino Transf (AST/SGOT) 38 U/L (15-37) H Alanine Aminotransferase (ALT/SGPT) 13 U/L (12-78) Alkaline Phosphatase 119 U/L (46-116) H Pro-B-Type Natriuretic Peptide 81246 pg/mL (0-125) H Total Protein 7.3 G/DL (6.4-8.2) Albumin 3.0 G/DL (3.4-5.0) L Globulin 4.3 g/dL Albumin/Globulin Ratio 0.7 (1.0-2.7) L Current Medications Medications (Trade) Dose Ordered Sig/[place] Route PRN Reason Start Time Stop Time Status Last Admin Dose Admin Acetaminophen (Tylenol) 650 mg Q4H PRN ORAL Fever 08/13/18 17:45 09/12/18 17:44 08/15/18 09:34 Albuterol/ Ipratropium (Albuterol/ Ipratropium) 3 ml Q4H PRN HHN Shortness of Breath 08/13/18 17:45 08/18/18 17:44 08/14/18 20:32 Aspirin (Ecotrin) 81 mg DAILY ORAL 08/14/18 09:00 09/13/18 08:59 08/16/18 08:39 Dextrose (Dextrose 50%) 25 ml Q30M PRN IV Hypoglycemia 08/13/18 17:45 09/12/18 17:44 Dextrose (Dextrose 50%) 50 ml Q30M PRN IV Hypoglycemia 08/13/18 17:45 09/12/18 17:44 Furosemide (Lasix) 40 mg EVERY 12 HOURS IV 08/16/18 21:00 09/15/18 20:59 Heparin Sodium (Porcine) (Heparin 5000 units/ml) 5,000 units EVERY 12 HOURS SUBQ 08/13/18 21:00 09/12/18 20:59 08/16/18 08:41 Levofloxacin 50 ml @ 50 mls/hr Q24H IVPB 08/15/18 13:00 08/22/18 12:59 08/15/18 13:13 Lisinopril (Zestril) 10 mg DAILY ORAL 08/16/18 09:00 09/15/18 08:59 Magnesium Sulfate 100 ml @ 100 mls/hr Q1H IVPB 08/16/18 13:00 08/16/18 14:59 08/16/18 12:58 Metoprolol Tartrate (Lopressor) 25 mg Q12HR ORAL 08/14/18 21:00 09/13/18 20:59 08/16/18 12:58 Nitroglycerin (Ntg) 0.4 mg Q5M PRN SL Prn Chest Pain 08/13/18 16:15 09/12/18 16:14 08/13/18 16:15 Ondansetron HCl (Zofran) 4 mg Q6H PRN IVP Nausea & Vomiting 08/13/18 17:45 09/12/18 17:44 Polyethylene Glycol (Miralax) 17 gm DAILYPRN PRN ORAL Constipation 08/13/18 17:45 09/12/18 17:44 Potassium Chloride (K-Dur) 50 meq BID ORAL 08/16/18 09:00 08/16/18 23:59 08/16/18 08:39 Promethazine HCl/ Codeine (Phenergan with Codeine) 5 ml Q4H PRN ORAL For Cough 08/14/18 12:30 09/13/18 12:29 Spironolactone (Aldactone) 25 mg DAILY ORAL 08/16/18 09:00 09/15/18 08:59 08/16/18 08:40 Tamsulosin HCl (Flomax) 0.4 mg BEDTIME ORAL 08/13/18 21:00 09/12/18 20:59 08/15/18 20:35 Temazepam (Restoril) 15 mg HSPRN PRN ORAL Insomnia 08/13/18 17:45 08/20/18 17:44 08/15/18 22:50 Theophylline (Dheeraj-Dur) 100 mg EVERY 12 HOURS ORAL 08/14/18 21:00 09/13/18 20:59 08/16/18 08:39 Dallas Matias M.D. Aug 16, 2018 13:44
[2018-08-16] MEDS ORDERED: ceFAZolin 1gm/50ml Premix 50 ML IV SCH (13:45)
[2018-08-16] MEDS ORDERED: ceFAZolin 1gm in D5W 55ml IVPB SCH (14:00)
--- NOTE | 2018-08-16 14:15 | Cardiac Electrophysiology PN ---
Assessment/Plan Assessment/Plan 1. Exacerbation of congestive heart failure. EF 35% with BNP>78133. The patient also has moderate tricuspid regurgitation and severe pulmonary hypertension with PA pressures of 70. Change Lasix to 40 iv bid. Continue Metoprolol 25 bid, lisinopril, and Aldactone 2. S/P CABG on aspirin and beta-porsha. 3. Hypertension. Optimize heart failure medications first in view of EF of 35%. 4. Severe pulmonary hypertension. 5. COPD, on Levaquin and albuterol per Dr. Leroy. 6. History of CVA in 2007. 7. Obesity. LISSETH RN Subjective Subjective On BIPAP. Feeling better. Change Lasix drip to Lasix 40 iv bid Objective Last 24 Hour Vital Signs Date Time Temp Pulse Resp B/P (MAP) Pulse Ox O2 Delivery O2 Flow Rate FiO2 08/16/18 12:58 68 132/48 08/16/18 12:00 68 08/16/18 12:00 4.0 08/16/18 12:00 Bi-pap 08/16/18 12:00 97.6 65 23 132/48 (76) 91 08/16/18 11:12 100 20 97 08/16/18 09:28 107 20 94 Facial 35 08/16/18 09:00 73 08/16/18 09:00 105/70 08/16/18 08:00 99.1 66 21 114/49 (70) 92 08/16/18 08:00 3.0 08/16/18 08:00 Bi-pap 08/16/18 07:33 103 20 96 08/16/18 04:55 73 20 97 08/16/18 04:00 Bi-pap 08/16/18 04:00 35 08/16/18 04:00 97.3 57 16 148/66 (93) 100 08/16/18 03:27 71 08/16/18 03:10 56 18 97 Facial 35 08/16/18 01:10 59 18 96 Facial 35 08/16/18 00:00 98.1 58 20 124/60 (81) 97 08/16/18 00:00 Bi-pap 08/15/18 23:20 68 08/15/18 23:05 53 17 95 Facial 35 08/15/18 21:20 62 22 97 Facial 35 08/15/18 20:35 97 128/53 08/15/18 20:00 98.4 97 20 128/53 (78) 98 08/15/18 20:00 35 08/15/18 20:00 Bi-pap 08/15/18 19:24 79 08/15/18 19:00 70 22 95 08/15/18 17:01 98 18 96 Full Face 35 08/15/18 16:00 74 08/15/18 16:00 35 08/15/18 16:00 97.8 68 18 134/74 (94) 95 08/15/18 16:00 Bi-pap 08/15/18 14:52 99 24 98 Full Face 35 Intake and Output 08/15/18 08/16/18 18:59 06:59 Intake Total 840 ml 289.25 ml Output Total 5200 ml 3000 ml Balance -4360 ml -2710.75 ml Intake Oral 830 ml 200 ml IV Total 10 ml 89.25 ml Output Urine Total 5200 ml 3000 ml Laboratory Tests Test 08/15/18 17:45 08/16/18 03:20 Troponin I 0.282 ng/mL (0.000-0.056) White Blood Count 7.0 K/UL (4.8-10.8) Red Blood Count 4.28 M/UL (4.70-6.10) L Hemoglobin 10.1 G/DL (14.2-18.0) L Hematocrit 32.5 % (42.0-52.0) L Mean Corpuscular Volume 76 FL (80-99) L Mean Corpuscular Hemoglobin 23.6 PG (27.0-31.0) L Mean Corpuscular Hemoglobin Concent 31.0 G/DL (32.0-36.0) L Red Cell Distribution Width 20.3 % (11.6-14.8) H Platelet Count 139 K/UL (150-450) L Mean Platelet Volume 8.8 FL (6.5-10.1) Neutrophils (%) (Auto) 50.5 % (45.0-75.0) Lymphocytes (%) (Auto) 34.9 % (20.0-45.0) Monocytes (%) (Auto) 12.8 % (1.0-10.0) H Eosinophils (%) (Auto) 0.8 % (0.0-3.0) Basophils (%) (Auto) 1.1 % (0.0-2.0) Sodium Level 142 MMOL/L (136-145) Potassium Level 2.3 MMOL/L (3.5-5.1) *L Chloride Level 99 MMOL/L (98-107) Carbon Dioxide Level 35 MMOL/L (21-32) H Anion Gap 8 mmol/L (5-15) Blood Urea Nitrogen 25 mg/dL (7-18) H Creatinine 1.7 MG/DL (0.55-1.30) H Estimat Glomerular Filtration Rate 40.0 mL/min (>60) Glucose Level 73 MG/DL (74-106) L Calcium Level 8.3 MG/DL (8.5-10.1) L Phosphorus Level 3.1 MG/DL (2.5-4.9) Magnesium Level 1.5 MG/DL (1.8-2.4) L Total Bilirubin 1.3 MG/DL (0.2-1.0) H Direct Bilirubin 0.6 MG/DL (0.0-0.3) H Aspartate Amino Transf (AST/SGOT) 38 U/L (15-37) H Alanine Aminotransferase (ALT/SGPT) 13 U/L (12-78) Alkaline Phosphatase 119 U/L (46-116) H Pro-B-Type Natriuretic Peptide 34841 pg/mL (0-125) H Total Protein 7.3 G/DL (6.4-8.2) Albumin 3.0 G/DL (3.4-5.0) L Globulin 4.3 g/dL Albumin/Globulin Ratio 0.7 (1.0-2.7) L Microbiology Date/Time Source Procedure Growth Status 08/15/18 00:15 Sputum Gram Stain - Final Resulted 08/15/18 00:15 Sputum Sputum Culture - Preliminary NORMAL UPPER RESPIRATORY YULIA PRESENT Resulted Objective HEAD AND NECK: Positive JVD.BIPAP on. LUNGS: Decreased breath sounds as well as wheezes. Lungs have coarse rhonchi. CARDIOVASCULAR: Shows regular S1 and S2 with no gallop. ABDOMEN: Soft. EXTREMITIES: 1+ pitting edema. Madhav Leung MD Aug 16, 2018 14:15
[2018-08-16] MEDS ORDERED: Nitroglycerin Subl 0.4mg tab SL PRN (14:30)
--- NOTE | 2018-08-16 14:35 | NUR ---
NURSE NOTES: pt transferred to 2E by bed as ordered, condition stable, report given to BENITO ALLISON.
[2018-08-16] MEDS ORDERED: Albuterol/Ipratropium 3ml neb HHN PRN (15:00)
[2018-08-16] MEDS ORDERED: Miralax 17gm pkt ORAL PRN (15:00)
[2018-08-16] MEDS ORDERED: Promethazine/Codeine 5ml UD ORAL PRN (15:00)
--- NOTE | 2018-08-16 15:45 | Consultation ---
DATE OF CONSULTATION: 08/16/2018 INFECTIOUS DISEASES CONSULTATION CONSULTING PHYSICIAN: Dallas Matias M.D. REQUESTING PHYSICIAN: Dat Leroy M.D. REASON FOR CONSULTATION: Fever and cellulitis of both lower extremities. Recommendation for antimicrobial treatment. HISTORY OF PRESENT ILLNESS: The patient is a 68-year-old male with past medical history of congestive heart failure, coronary artery disease, COPD, CVA, and obesity presented to [facility] with shortness of breath and bilateral lower extremity swelling, this started almost a week ago before admission when he was having shortness of breath with activities. He also noticed increased swelling in both feet and legs. The patient has a history of congestive heart failure and he has been following restricted fluid intake and taking his Lasix as usual. The patient's shortness of breath got worse to the point it restricted his walking capability so he was brought into the emergency room for evaluation. Chest x-ray showed congestive heart failure picture. The patient was found to have bilateral leg swelling with redness and erythema suggestive of cellulitis and he was started on Levaquin by the admitting physician and Infectious Diseases consultation was requested for antibiotics treatment and further management. REVIEW OF SYSTEMS: A 14-point of system reviewed were all negative apart from the one I mentioned above in my History and Physical. PAST MEDICAL HISTORY: Significant for CHF, coronary artery disease, COPD, CVA, morbid obesity. PAST SURGICAL HISTORY: Negative. FAMILY HISTORY: Noncontributory. ALLERGIES: He has no known drug allergy. MEDICATIONS: Currently, he is on levofloxacin 250 mg IV once daily. For the rest of his medications, please refer to MAR. SOCIAL HISTORY: The patient , lives with family. Denied tobacco or alcohol use. He is retired. LABORATORY AND DIAGNOSTIC DATA: White count of , hemoglobin of 10.1, platelet count of 139. BUN of 25 and creatinine of 1.7. Microbiology, sputum culture grew normal upper respiratory ivana. IMAGING: Chest x-ray today showed interstitial edema and bilateral pleural effusion, demonstrated cardiomegaly persist, and prosthetic aortic valve. There is evidence of prior median sternotomy, unchanged. PHYSICAL EXAMINATION: VITAL SIGNS: Temperature 97.6, pulse 65, respirations 23, blood pressure 132/48, saturation 91% on BiPAP. GENERAL: Elderly male, lying in bed, obese, awake and alert, responsive, not in acute distress. HEENT: Normocephalic and atraumatic. Pupils are reactive to light equally. Moist oral mucosa. No exudate or thrush. NECK: Supple. No lymphadenopathy. CARDIOVASCULAR: Regular rate and rhythm. No murmur or gallop. LUNGS: He had wheezing and diminished breathing sounds at the bases. Normal breathing effort. ABDOMEN: Soft, nontender, and nondistended. Normal bowel sounds. No hepatosplenomegaly or ascites. EXTREMITIES: He has redness, edema, and tenderness on both lower extremities. ASSESSMENT AND RECOMMENDATION: 1. Bilateral lower extremity cellulitis. We will start the patient on cefazolin empiric coverage, pending his DVT workup with venous Doppler. Recommend to keep leg elevated all the time while in bed. 2. Onychomycosis. The patient will be started on the Lamisil for three months to treat his fungal toe infection which might be contributing factor to his cellulitis. 3. COPD with exacerbation. Continue antibiotics, inhalers, and oxygen with nebulizer treatment. 4. CHF exacerbation. Continue diuretics as per Cardiology. Monitor weight and urine output. 5. Fever suspect due to the above. We will switch antibiotics to cefazolin and send blood culture to rule out sepsis and continue Tylenol as needed for fever. Thank you for the consult. ID will continue to follow. Please feel free to call with any question. Dallas Matias M.D. DR: Georgi JOB#: [id number] CC:
[2018-08-16] MEDS: ceFAZolin sod 1 GM in D5W 55 ML IVPB SCH ×2 (15:53→21:56)
[2018-08-16 16:00] VITALS: BP 131/65
--- NOTE | 2018-08-16 18:09 | Internal Med Progress Note ---
Subjective Date of Service: Aug 16, 2018 Physician Name FrankelLeonides kumar Attending Physician Philip Holden MD Current Medications Medications (Trade) Dose Ordered Sig/[place] Route PRN Reason Start Time Stop Time Status Last Admin Dose Admin Acetaminophen (Tylenol) 650 mg Q4H PRN ORAL T>100.5 08/16/18 15:00 09/12/18 14:59 Albuterol/ Ipratropium (Albuterol/ Ipratropium) 3 ml Q4H PRN HHN Shortness of Breath 08/16/18 15:00 08/18/18 14:59 Aspirin (Ecotrin) 81 mg DAILY ORAL 08/17/18 09:00 09/13/18 08:59 Cefazolin Sodium 1 gm/Dextrose 55 ml @ 110 mls/hr Q8HR IVPB 08/16/18 14:00 08/23/18 13:59 08/16/18 15:53 Dextrose (Dextrose 50%) 25 ml Q30M PRN IV Hypoglycemia 08/16/18 14:45 09/12/18 17:44 Dextrose (Dextrose 50%) 50 ml Q30M PRN IV Hypoglycemia 08/16/18 14:45 09/12/18 17:44 Furosemide (Lasix) 40 mg EVERY 12 HOURS IV 08/16/18 21:00 09/15/18 20:59 Heparin Sodium (Porcine) (Heparin 5000 units/ml) 5,000 units EVERY 12 HOURS SUBQ 08/16/18 21:00 09/12/18 20:59 Lisinopril (Zestril) 10 mg DAILY ORAL 08/17/18 09:00 09/15/18 08:59 Metoprolol Tartrate (Lopressor) 25 mg Q12HR ORAL 08/16/18 21:00 09/13/18 20:59 Nitroglycerin (Ntg) 0.4 mg Q5M PRN SL Prn Chest Pain 08/16/18 14:30 09/12/18 16:14 Ondansetron HCl (Zofran) 4 mg Q6H PRN IVP Nausea & Vomiting 08/16/18 15:00 09/12/18 14:59 Polyethylene Glycol (Miralax) 17 gm DAILYPRN PRN ORAL Constipation 08/16/18 15:00 09/12/18 14:59 Potassium Chloride (K-Dur) 50 meq ONCE ORAL 08/16/18 18:00 08/16/18 20:00 08/16/18 18:06 Promethazine HCl/ Codeine (Phenergan with Codeine) 5 ml Q4H PRN ORAL For Cough 08/16/18 15:00 09/13/18 14:59 Spironolactone (Aldactone) 25 mg DAILY ORAL 08/17/18 09:00 09/15/18 08:59 Tamsulosin HCl (Flomax) 0.4 mg BEDTIME ORAL 08/16/18 21:00 09/12/18 20:59 Temazepam (Restoril) 15 mg HSPRN PRN ORAL Insomnia 08/16/18 21:00 08/20/18 20:59 Terbinafine HCl (LamISIL) 250 mg DAILY ORAL 08/17/18 09:00 08/24/18 08:59 Theophylline (Dheeraj-Dur) 100 mg EVERY 12 HOURS ORAL 08/16/18 21:00 09/13/18 20:59 Allergies: Coded Allergies: No Known Allergies (Unverified , 02/28/16) ROS Limited/Unobtainable: No Constitutional: Reports: no symptoms HEENT: Reports: no symptoms Cardiovascular: Reports: no symptoms Respiratory: Reports: shortness of breath Gastrointestinal/Abdominal: Reports: no symptoms Genitourinary: Reports: no symptoms Neurologic/Psychiatric: Reports: no symptoms Subjective 68 YO M admitted with shortness of breath. Now CHF and COPD exacerbation. Cover for Int Didier-Dr Holden. Tolerating nasal canula Objective Last Vital Signs Date Time Temp Pulse Resp B/P (MAP) Pulse Ox O2 Delivery O2 Flow Rate FiO2 08/16/18 17:17 100 18 96 08/16/18 16:00 98.4 131/65 (87) 08/16/18 16:00 4.0 08/16/18 12:00 Nasal Cannula 08/16/18 09:28 35 Laboratory Tests Test 08/16/18 03:20 08/16/18 14:20 White Blood Count 7.0 K/UL (4.8-10.8) Red Blood Count 4.28 M/UL (4.70-6.10) L Hemoglobin 10.1 G/DL (14.2-18.0) L Hematocrit 32.5 % (42.0-52.0) L Mean Corpuscular Volume 76 FL (80-99) L Mean Corpuscular Hemoglobin 23.6 PG (27.0-31.0) L Mean Corpuscular Hemoglobin Concent 31.0 G/DL (32.0-36.0) L Red Cell Distribution Width 20.3 % (11.6-14.8) H Platelet Count 139 K/UL (150-450) L Mean Platelet Volume 8.8 FL (6.5-10.1) Neutrophils (%) (Auto) 50.5 % (45.0-75.0) Lymphocytes (%) (Auto) 34.9 % (20.0-45.0) Monocytes (%) (Auto) 12.8 % (1.0-10.0) H Eosinophils (%) (Auto) 0.8 % (0.0-3.0) Basophils (%) (Auto) 1.1 % (0.0-2.0) Sodium Level 142 MMOL/L (136-145) Potassium Level 2.3 MMOL/L (3.5-5.1) *L Chloride Level 99 MMOL/L (98-107) Carbon Dioxide Level 35 MMOL/L (21-32) H Anion Gap 8 mmol/L (5-15) Blood Urea Nitrogen 25 mg/dL (7-18) H Creatinine 1.7 MG/DL (0.55-1.30) H Estimat Glomerular Filtration Rate 40.0 mL/min (>60) Glucose Level 73 MG/DL (74-106) L Calcium Level 8.3 MG/DL (8.5-10.1) L Phosphorus Level 3.1 MG/DL (2.5-4.9) Magnesium Level 1.5 MG/DL (1.8-2.4) L Total Bilirubin 1.3 MG/DL (0.2-1.0) H Direct Bilirubin 0.6 MG/DL (0.0-0.3) H Aspartate Amino Transf (AST/SGOT) 38 U/L (15-37) H Alanine Aminotransferase (ALT/SGPT) 13 U/L (12-78) Alkaline Phosphatase 119 U/L (46-116) H Pro-B-Type Natriuretic Peptide 04529 pg/mL (0-125) H Total Protein 7.3 G/DL (6.4-8.2) Albumin 3.0 G/DL (3.4-5.0) L Globulin 4.3 g/dL Albumin/Globulin Ratio 0.7 (1.0-2.7) L Troponin I 0.265 ng/mL (0.000-0.056) Microbiology Date/Time Source Procedure Growth Status 08/15/18 00:15 Sputum Gram Stain - Final Resulted 08/15/18 00:15 Sputum Sputum Culture - Preliminary NORMAL UPPER RESPIRATORY YULIA PRESENT Resulted Intake and Output 08/15/18 08/16/18 19:00 07:00 Intake Total 830 ml 289.25 ml Output Total 5200 ml 3000 ml Balance -4370 ml -2710.75 ml Intake Oral 830 ml 200 ml IV Total 89.25 ml Output Urine Total 5200 ml 3000 ml Objective Objective GENERAL: The patient is a well-developed and well-nourished white male, On BiPAP. HEENT: Eyes, pupils equal and responsive to light and accommodation. Extraocular movements intact. NECK: Supple, No lymphadenopathy. CHEST: bilateral air entry, Diffuse wheezes in bilateral lung higgins. ABDOMEN: Soft, nontender, and nondistended. Positive bowel sounds. no rebound or guarding, morbid obesity. : Lainez cath EXTREMITIES: Negative for clubbing, cyanosis, +2 LE's edema. RECTAL AND GENITAL: Refused. NEUROLOGIC: Cranial nerves II through XII are grossly intact without focal deficits. Motor strength is 5/5 bilaterally. Assessment/Plan Status: progressing Assessment/Plan Assessment/Plan Assessment/Plan 1. Acute hypoxemic respiratory failure. 2. Acute on Chronic Congestive heart failure. 3. Coronary artery disease. 4. Cerebrovascular disease. 5. Morbid Obesity. 6. Hypokalemia. 7. COPD exacerbation TREATMENT: 1. Shortness of breath. Most likely due to Acute congestive heart failure, on Lasix Drip. 2. Congestive heart failure/coronary artery disease. Cardiology, Dr. Madhav Leung and Pulmonary: Dr. Leroy, 3. Cerebrovascular disease. 4. Edema of bilateral legs. 5. Code status: Full code 6. off BiPAP-see pulmonary note 7. DVT prophylaxis : Heparin SQ 8. Levaquin IV Leonides Frankel MD Aug 16, 2018 18:09
--- NOTE | 2018-08-16 18:13 | Consultation ---
Consult Note Consult Note asked to eval for rising Cr and Low K A 68-year-old male brought in by EMS with increased difficulty breathing gradual onset. Patient a prior history of his congestive heart failure. Patient had been reportedly taking Lasix. He had been noted to have increased difficulty breathing with associated increased leg swelling.She is noted to have gradual onset of symptoms. No Known Allergies (Unverified , 02/28/16) Hx Cardiac Problems: No - CHF Hx Hypertension: Yes Hx COPD: Yes Hx Neurological Problems: Yes Hx Cerebrovascular Accident: Yes - 8 YEARS AGO interviewed examined data reviewed Assessment/Plan worsening renal faunction due to treatment of CHF and Cardiomyopathy Cr cristian to 1.7 Others: (1) Acute respiratory failure (2) CHF (congestive heart failure) (3) Acute bronchitis (4) COPD (chronic obstructive pulmonary disease) (5) HTN (hypertension) (6) CHF exacerbation Plan: K supplement Optimize cardiac status avoid nephrotoxics monitor renal parameters Jadon Shukla MD Aug 16, 2018 18:13
--- NOTE | 2018-08-16 19:34 | NUR ---
HAND-OFF: Report given to Zachariah Dalton.
--- NOTE | 2018-08-16 19:35 | NUR ---
NURSE NOTES: Got report from Vladimir ALLISON. Pt in stable condition. Denies any pain. No s/s of distress or discomfort noted. Pt resting in bed comfortably. Bed in low and locked position, call light within reach, bedside table within reach. continue to monitor.
[2018-08-16 20:00] VITALS: BP 131/61
--- NOTE | 2018-08-16 20:05 | NUR ---
CASE MANAGEMENT: REVIEW SI: CHF EXACERBATION T 98.4 HR 54 RR 22 BP 132/48 SAT 91% NC/4L H/H 10.1/32.5 K 2.3 BUN 25 CR 1.7 TROPONIN I 0.265 BNP 06475 IS: ECOTRIN PO QD K-DUR PO BID ALDACTONE PO BID LASIX IV Q12HR LOPRESSOR PO Q12HR TELEMETRY UNIT STATUS DCP: PATIENT IS FROM HOME
--- NOTE | 2018-08-16 20:19 | NUR ---
RESPIRATORY NOTE: Pt is currently on nasal cannula SPO2 98%. No s/s of resp distress. I made it known to Marco RN and charge nurse, Courtney that he needs to be on a room equipped with red outlet and they said they'll look for one and will let me know when they found one. Will continue to monitor pt's progress.
[2018-08-16] MEDS: Tamsulosin 0.4mg cap ORAL SCH (21:00)
[2018-08-17] VITALS: BP 144/71
[2018-08-17 04:20] VITALS: BP 137/78
[2018-08-17] MEDS: ceFAZolin sod 1 GM in D5W 55 ML IVPB SCH ×3 (05:38→21:13)
[2018-08-17 07:08] LABS: EOSINOPHILS % (AUTO) 2.7 % (0.0-3.0); HEMATOCRIT 33.7 % (42.0-52.0); HEMOGLOBIN 10.4 G/DL (14.2-18.0); LYMPHOCYTES % (AUTO) 34.6 % (20.0-45.0); MEAN CORPUSCULAR VOLUME 77 FL (80-99); MONOCYTES % (AUTO) 12.3 % (1.0-10.0); NEUTROPHILS % (AUTO) 49.3 % (45.0-75.0); PLATELET COUNT 143 K/UL (150-450); RED BLOOD COUNT 4.37 M/UL (4.70-6.10); RED CELL DISTRIBUTION WIDTH 20.6 % (11.6-14.8); WHITE BLOOD COUNT 7.7 K/UL (4.8-10.8)
[2018-08-17 07:35] LABS: AMMONIA 46 umol/L (11-32)
[2018-08-17 07:39] LABS: ALANINE AMINOTRANSFERASE 14 U/L (12-78); ALBUMIN/GLOBULIN RATIO 0.7 (1.0-2.7); ALKALINE PHOSPHATASE 121 U/L (46-116); ANION GAP 3 mmol/L (5-15); ASPARTATE AMINO TRANSFERASE 38 U/L (15-37); BLOOD UREA NITROGEN 24 mg/dL (7-18); CALCIUM 8.7 MG/DL (8.5-10.1); CARBON DIOXIDE 39 MMOL/L (21-32); CHLORIDE 101 MMOL/L (98-107); CHOLESTEROL 147 MG/DL (< 200); CREATINE KINASE 104 U/L (26-308); CREATININE 1.6 MG/DL (0.55-1.30); FERRITIN 124 NG/ML (8-388); GAMMA GLUTAMYL TRANSPEPTIDASE 171 U/L (5-85); HDL CHOLESTEROL 29 MG/DL (40-60); PHOSPHORUS 2.8 MG/DL (2.5-4.9); POTASSIUM 2.9 MMOL/L (3.5-5.1); SODIUM 143 MMOL/L (136-145); TRIGLYCERIDES 88 MG/DL (30-150)
--- NOTE | 2018-08-17 07:46 | NUR ---
NURSE NOTES: Received report from ESTEFANY Soni. Patient is in stable condition. No acute distress/SOB noted. Patient denies any pain/discomfort. Will continue plan of care.
[2018-08-17 07:58] LABS: % IRON SATURATION 8 % (15-50); IRON 26 ug/dL (50-175); TOTAL IRON BINDING CAPACITY 321 ug/dL (250-450)
[2018-08-17 08:00] VITALS: BP 157/79
[2018-08-17] MEDS: Spironolactone 25mg tab ORAL SCH ×2 (08:55→17:29)
[2018-08-17] MEDS: Aspirin EC 81mg tab ORAL SCH (08:56)
[2018-08-17] MEDS: Metoprolol 25mg tab ORAL SCH ×2 (08:56→21:00)
[2018-08-17] MEDS: Theophylline ER 100mg ORAL SCH ×2 (08:56→21:03)
[2018-08-17] MEDS ORDERED: Spironolactone 25mg tab ORAL SCH (09:00)
[2018-08-17] MEDS ORDERED: Lisinopril 10mg tab ORAL SCH (09:00)
[2018-08-17] MEDS: Heparin 5000 units/ml inj SUBQ SCH ×2 (09:00→21:13)
--- NOTE | 2018-08-17 10:43 | Nephrology Progress Note ---
Assessment/Plan Problem List: (1) Acute renal failure (2) CHF exacerbation (3) COPD (chronic obstructive pulmonary disease) (4) Hypokalemia (5) HTN (hypertension) Assessment worsening renal faunction due to treatment of CHF and Cardiomyopathy Cr cristian to 1.7 Others: (1) Acute respiratory failure (2) CHF (congestive heart failure) (3) Acute bronchitis (4) COPD (chronic obstructive pulmonary disease) (5) HTN (hypertension) (6) CHF exacerbation Plan K supplement, adjust dose oncrease Zestril Optimize cardiac status avoid nephrotoxics monitor renal parameters per orders Subjective ROS Limited/Unobtainable: No Constitutional: Reports: malaise Objective Objective Last 24 Hour Vital Signs Date Time Temp Pulse Resp B/P (MAP) Pulse Ox O2 Delivery O2 Flow Rate FiO2 08/17/18 09:00 Nasal Cannula 4.0 08/17/18 08:56 68 157/79 08/17/18 08:55 157/79 08/17/18 08:00 97.2 68 20 157/79 (105) 96 08/17/18 08:00 4.0 08/17/18 08:00 80 08/17/18 07:42 55 22 99 Nasal Cannula 4.0 36 08/17/18 07:34 53 22 97 Nasal Cannula 4.0 36 08/17/18 04:20 96.9 60 20 137/78 (97) 97 08/17/18 04:00 77 08/17/18 03:59 4.0 08/17/18 00:00 98.4 62 19 144/71 (95) 98 08/17/18 00:00 71 08/16/18 21:00 56 131/61 08/16/18 21:00 Nasal Cannula 5.0 08/16/18 20:00 4.0 08/16/18 20:00 97.5 56 19 131/61 (84) 96 08/16/18 20:00 64 08/16/18 17:17 100 18 96 08/16/18 16:00 98.4 54 22 131/65 (87) 95 08/16/18 16:00 4.0 08/16/18 15:39 62 08/16/18 15:12 100 18 96 08/16/18 12:58 68 132/48 08/16/18 12:00 68 08/16/18 12:00 4.0 08/16/18 12:00 Nasal Cannula 5.0 08/16/18 12:00 97.6 65 23 132/48 (76) 91 08/16/18 11:12 100 20 97 Intake and Output 08/16/18 08/17/18 18:59 06:59 Intake Total 480 ml Output Total 2500 ml 920 ml Balance -2020 ml -920 ml Intake Oral 480 ml Output Urine Total 2500 ml 920 ml Laboratory Tests 08/16/18 14:20: Troponin I 0.265H 08/16/18 14:30: C-Reactive Protein, Quantitative 14.3H 08/17/18 05:50: Troponin I 0.191H, White Blood Count 7.7, Red Blood Count 4.37L, Hemoglobin 10.4L, Hematocrit 33.7L, Mean Corpuscular Volume 77L, Mean Corpuscular Hemoglobin 23.7L, Mean Corpuscular Hemoglobin Concent 30.8L, Red Cell Distribution Width 20.6H, Platelet Count 143L, Mean Platelet Volume 7.4, Neutrophils (%) (Auto) 49.3, Lymphocytes (%) (Auto) 34.6, Monocytes (%) (Auto) 12.3H, Eosinophils (%) (Auto) 2.7, Basophils (%) (Auto) 1.0, Sodium Level 143, Potassium Level 2.9L, Chloride Level 101, Carbon Dioxide Level 39H, Anion Gap 3L , Blood Urea Nitrogen 24H, Creatinine 1.6H, Estimat Glomerular Filtration Rate 42.9, Glucose Level 81, Hemoglobin A1c 5.7, Uric Acid 8.7H, Calcium Level 8.7, Phosphorus Level 2.8, Magnesium Level 2.1, Iron Level 26L, Total Iron Binding Capacity 321, Percent Iron Saturation 8L, Unsaturated Iron Binding 295, Ferritin 124, Total Bilirubin 1.0, Gamma Glutamyl Transpeptidase 171H, Aspartate Amino Transf (AST/SGOT) 38H, Alanine Aminotransferase (ALT/SGPT) 14, Alkaline Phosphatase 121H, Ammonia 46H, Total Creatine Kinase 104, Pro-B-Type Natriuretic Peptide 7364H, Total Protein 7.5, Albumin 3.0L, Globulin 4.5, Albumin/Globulin Ratio 0.7L, Triglycerides Level 88, Cholesterol Level 147, LDL Cholesterol 103H, HDL Cholesterol 29L, Cholesterol/HDL Ratio 5.1H, Vitamin B12 Level 494, Folate 8.8, Thyroid Stimulating Hormone (TSH) 7.691H Height (Feet): 5 Height (Inches): 10.00 Weight (Pounds): 240 General Appearance: no apparent distress Cardiovascular: normal rate Respiratory/Chest: decreased breath sounds Abdomen: distended Jadon Shukla MD Aug 17, 2018 10:43
--- NOTE | 2018-08-17 11:18 | NUR ---
RD ASSESSMENT & RECOMMENDATIONS SEE CARE ACTIVITY FOR COMPLETE ASSESSMENT DAILY ESTIMATED NEEDS: Needs based on Pulmonary, cardiac, 83kg adj 25-28 kcals/kg 3524-1802 total kcals 1-1.5 g protein/kg 83-125 g total protein Fluid per MD, on HD NUTRITION DIAGNOSIS: Decreased sodium needs r/t clinical status as evidenced by pt w/ BL LE edema, CHF w/ elev BNP, on lasix, acute renal failure (elev Creat 1.6), w/ elev LFT's. CURRENT DIET:Renal diet PO DIET RECOMMENDATIONS: LOW NA diet ADDITIONAL RECOMMENDATIONS: 1) monitor lytes, need for renal diet 2) Rec B-complex x1 daily 3) On diuretics-> Rec standing weight for accurate daily wts 4) Consider accu-checks, need for niss
--- NOTE | 2018-08-17 11:56 | Pulmonology Progress Note ---
Assessment/Plan Problems: (1) Acute respiratory failure (2) CHF (congestive heart failure) (3) Acute bronchitis (4) COPD (chronic obstructive pulmonary disease) (5) HTN (hypertension) (6) CHF exacerbation Assessment/Plan alem maldonado today diuresed 16 liters so far creatinine slightly less check troponin Echo reviewed, EF is 35% check intake and output BNP daily, watch electrolytes monitor in teli respiratory treatment check electrolytes. Subjective ROS Limited/Unobtainable: No Interval Events: doing better Allergies: Coded Allergies: No Known Allergies (Unverified , 02/28/16) Objective Last 24 Hour Vital Signs Date Time Temp Pulse Resp B/P (MAP) Pulse Ox O2 Delivery O2 Flow Rate FiO2 08/17/18 09:00 Nasal Cannula 4.0 08/17/18 08:56 68 157/79 08/17/18 08:55 157/79 08/17/18 08:00 97.2 68 20 157/79 (105) 96 08/17/18 08:00 4.0 08/17/18 08:00 80 08/17/18 07:42 55 22 99 Nasal Cannula 4.0 36 08/17/18 07:34 53 22 97 Nasal Cannula 4.0 36 08/17/18 04:20 96.9 60 20 137/78 (97) 97 08/17/18 04:00 77 08/17/18 03:59 4.0 08/17/18 00:00 98.4 62 19 144/71 (95) 98 08/17/18 00:00 71 08/16/18 21:00 56 131/61 08/16/18 21:00 Nasal Cannula 5.0 08/16/18 20:00 4.0 08/16/18 20:00 97.5 56 19 131/61 (84) 96 08/16/18 20:00 64 08/16/18 17:17 100 18 96 08/16/18 16:00 98.4 54 22 131/65 (87) 95 08/16/18 16:00 4.0 08/16/18 15:39 62 08/16/18 15:12 100 18 96 08/16/18 12:58 68 132/48 08/16/18 12:00 68 08/16/18 12:00 4.0 08/16/18 12:00 Nasal Cannula 5.0 08/16/18 12:00 97.6 65 23 132/48 (88) 91 Intake and Output 08/16/18 08/17/18 19:00 07:00 Intake Total 480 ml Output Total 2500 ml 920 ml Balance -2020 ml -920 ml Intake Oral 480 ml Output Urine Total 2500 ml 920 ml General Appearance: WD/WN HEENT: normocephalic, atraumatic Cardiovascular: normal peripheral pulses, normal rate Abdomen: soft, non tender, non distended Extremities: no cyanosis Skin: no rash Microbiology Date/Time Source Procedure Growth Status 08/15/18 00:15 Sputum Gram Stain - Final Complete 08/15/18 00:15 Sputum Sputum Culture - Final NORMAL UPPER RESPIRATORY YULIA PRESENT Complete Laboratory Tests 08/16/18 14:20: Troponin I 0.265H 08/16/18 14:30: C-Reactive Protein, Quantitative 14.3H 08/17/18 05:50: Troponin I 0.191H, White Blood Count 7.7, Red Blood Count 4.37L, Hemoglobin 10.4L, Hematocrit 33.7L, Mean Corpuscular Volume 77L, Mean Corpuscular Hemoglobin 23.7L, Mean Corpuscular Hemoglobin Concent 30.8L, Red Cell Distribution Width 20.6H, Platelet Count 143L, Mean Platelet Volume 7.4, Neutrophils (%) (Auto) 49.3, Lymphocytes (%) (Auto) 34.6, Monocytes (%) (Auto) 12.3H, Eosinophils (%) (Auto) 2.7, Basophils (%) (Auto) 1.0, Sodium Level 143, Potassium Level 2.9L, Chloride Level 101, Carbon Dioxide Level 39H, Anion Gap 3L , Blood Urea Nitrogen 24H, Creatinine 1.6H, Estimat Glomerular Filtration Rate 42.9, Glucose Level 81, Hemoglobin A1c 5.7, Uric Acid 8.7H, Calcium Level 8.7, Phosphorus Level 2.8, Magnesium Level 2.1, Iron Level 26L, Total Iron Binding Capacity 321, Percent Iron Saturation 8L, Unsaturated Iron Binding 295, Ferritin 124, Total Bilirubin 1.0, Gamma Glutamyl Transpeptidase 171H, Aspartate Amino Transf (AST/SGOT) 38H, Alanine Aminotransferase (ALT/SGPT) 14, Alkaline Phosphatase 121H, Ammonia 46H, Total Creatine Kinase 104, Pro-B-Type Natriuretic Peptide 7364H, Total Protein 7.5, Albumin 3.0L, Globulin 4.5, Albumin/Globulin Ratio 0.7L, Triglycerides Level 88, Cholesterol Level 147, LDL Cholesterol 103H, HDL Cholesterol 29L, Cholesterol/HDL Ratio 5.1H, Vitamin B12 Level 494, Folate 8.8, Thyroid Stimulating Hormone (TSH) 7.691H Current Medications Medications (Trade) Dose Ordered Sig/[place] Route PRN Reason Start Time Stop Time Status Last Admin Dose Admin Acetaminophen (Tylenol) 650 mg Q4H PRN ORAL T>100.5 08/16/18 15:00 09/12/18 14:59 Albuterol/ Ipratropium (Albuterol/ Ipratropium) 3 ml Q4H PRN HHN Shortness of Breath 08/16/18 15:00 08/18/18 14:59 08/17/18 07:34 Aspirin (Ecotrin) 81 mg DAILY ORAL 08/17/18 09:00 09/13/18 08:59 08/17/18 08:56 Cefazolin Sodium 1 gm/Dextrose 55 ml @ 110 mls/hr Q8HR IVPB 08/16/18 14:00 08/23/18 13:59 08/17/18 05:38 Dextrose (Dextrose 50%) 25 ml Q30M PRN IV Hypoglycemia 08/16/18 14:45 09/12/18 17:44 Dextrose (Dextrose 50%) 50 ml Q30M PRN IV Hypoglycemia 08/16/18 14:45 09/12/18 17:44 Furosemide (Lasix) 40 mg EVERY 12 HOURS IV 08/16/18 21:00 09/15/18 20:59 08/17/18 08:56 Heparin Sodium (Porcine) (Heparin 5000 units/ml) 5,000 units EVERY 12 HOURS SUBQ 08/16/18 21:00 09/12/18 20:59 08/16/18 21:00 Lisinopril (Zestril) 10 mg Q12HR ORAL 08/17/18 21:00 09/16/18 20:59 Metoprolol Tartrate (Lopressor) 25 mg Q12HR ORAL 08/16/18 21:00 09/13/18 20:59 08/17/18 08:56 Nitroglycerin (Ntg) 0.4 mg Q5M PRN SL Prn Chest Pain 08/16/18 14:30 09/12/18 16:14 Ondansetron HCl (Zofran) 4 mg Q6H PRN IVP Nausea & Vomiting 08/16/18 15:00 09/12/18 14:59 Pantoprazole (Protonix) 40 mg DAILY ORAL 08/16/18 18:15 09/15/18 18:14 08/17/18 08:55 Polyethylene Glycol (Miralax) 17 gm DAILYPRN PRN ORAL Constipation 08/16/18 15:00 09/12/18 14:59 Potassium Chloride (K-Dur) 40 meq THREE TIMES A DAY ORAL 08/17/18 13:00 09/16/18 08:59 Promethazine HCl/ Codeine (Phenergan with Codeine) 5 ml Q4H PRN ORAL For Cough 08/16/18 15:00 09/13/18 14:59 Spironolactone (Aldactone) 25 mg BID ORAL 08/17/18 09:00 09/15/18 08:59 08/17/18 08:55 Tamsulosin HCl (Flomax) 0.4 mg BEDTIME ORAL 08/16/18 21:00 09/12/18 20:59 08/16/18 21:00 Temazepam (Restoril) 15 mg HSPRN PRN ORAL Insomnia 08/16/18 21:00 08/20/18 20:59 08/16/18 21:49 Terbinafine HCl (LamISIL) 250 mg DAILY ORAL 08/17/18 09:00 08/24/18 08:59 08/17/18 08:55 Theophylline (Dheeraj-Dur) 100 mg EVERY 12 HOURS ORAL 08/16/18 21:00 09/13/18 20:59 08/17/18 08:56 Dat Leroy MD Aug 17, 2018 11:56
--- NOTE | 2018-08-17 11:59 | NUR ---
HEALTHCARE FACILITY ADMINISTRATOR NOTES SPOKE WITH YOUSIF FROM [facility], SHE WILL WORK ON PLACING PT INTO NETWORK.
[2018-08-17 12:00] VITALS: BP 122/58
--- NOTE | 2018-08-17 14:27 | Cardiology Report ---
APPROVED REPORT EKG Measurement Heart [id number] Atrial Fibrilation Indeterminate axis Right bundle branch block Abnormal ECG
--- NOTE | 2018-08-17 15:24 | Cardiac Electrophysiology PN ---
Assessment/Plan Assessment/Plan 1. Exacerbation of CHF. EF 35% with BNP>29006. The patient also has moderate tricuspid regurgitation and severe pulmonary hypertension with PA pressures of 70. On Lasix 40 iv bid, Metoprolol 25 bid, lisinopril, and Aldactone 2. S/P CABG on aspirin and beta-porsha. 3. Hypertension. Optimize heart failure medications first in view of EF of 35%. 4. Severe pulmonary hypertension. 5. COPD, on Levaquin and albuterol per Dr. Leroy. 6. History of CVA in 2007. 7. Obesity. LISSETH RN Subjective Subjective Feeling better. On Lasix 40 iv bid. at bedside. Objective Last 24 Hour Vital Signs Date Time Temp Pulse Resp B/P (MAP) Pulse Ox O2 Delivery O2 Flow Rate FiO2 08/17/18 12:00 98.1 54 20 122/58 (79) 99 08/17/18 09:00 Nasal Cannula 4.0 08/17/18 08:56 68 157/79 08/17/18 08:55 157/79 08/17/18 08:00 97.2 68 20 157/79 (105) 96 08/17/18 08:00 4.0 08/17/18 08:00 80 08/17/18 07:42 55 22 99 Nasal Cannula 4.0 36 08/17/18 07:34 53 22 97 Nasal Cannula 4.0 36 08/17/18 04:20 96.9 60 20 137/78 (97) 97 08/17/18 04:00 77 08/17/18 03:59 4.0 08/17/18 00:00 98.4 62 19 144/71 (95) 98 08/17/18 00:00 71 08/16/18 21:00 56 131/61 08/16/18 21:00 Nasal Cannula 5.0 08/16/18 20:00 4.0 08/16/18 20:00 97.5 56 19 131/61 (84) 96 08/16/18 20:00 64 08/16/18 17:17 100 18 96 08/16/18 16:00 98.4 54 22 131/65 (87) 95 08/16/18 16:00 4.0 08/16/18 15:39 62 Intake and Output 08/16/18 08/17/18 18:59 06:59 Intake Total 480 ml Output Total 2500 ml 920 ml Balance -2020 ml -920 ml Intake Oral 480 ml Output Urine Total 2500 ml 920 ml Laboratory Tests Test 08/17/18 05:50 08/17/18 14:03 White Blood Count 7.7 K/UL (4.8-10.8) Red Blood Count 4.37 M/UL (4.70-6.10) L Hemoglobin 10.4 G/DL (14.2-18.0) L Hematocrit 33.7 % (42.0-52.0) L Mean Corpuscular Volume 77 FL (80-99) L Mean Corpuscular Hemoglobin 23.7 PG (27.0-31.0) L Mean Corpuscular Hemoglobin Concent 30.8 G/DL (32.0-36.0) L Red Cell Distribution Width 20.6 % (11.6-14.8) H Platelet Count 143 K/UL (150-450) L Mean Platelet Volume 7.4 FL (6.5-10.1) Neutrophils (%) (Auto) 49.3 % (45.0-75.0) Lymphocytes (%) (Auto) 34.6 % (20.0-45.0) Monocytes (%) (Auto) 12.3 % (1.0-10.0) H Eosinophils (%) (Auto) 2.7 % (0.0-3.0) Basophils (%) (Auto) 1.0 % (0.0-2.0) Sodium Level 143 MMOL/L (136-145) Potassium Level 2.9 MMOL/L (3.5-5.1) L Chloride Level 101 MMOL/L (98-107) Carbon Dioxide Level 39 MMOL/L (21-32) H Anion Gap 3 mmol/L (5-15) L Blood Urea Nitrogen 24 mg/dL (7-18) H Creatinine 1.6 MG/DL (0.55-1.30) H Estimat Glomerular Filtration Rate 42.9 mL/min (>60) Glucose Level 81 MG/DL (74-106) Hemoglobin A1c 5.7 % (4.3-6.0) Uric Acid 8.7 MG/DL (2.6-7.2) H Calcium Level 8.7 MG/DL (8.5-10.1) Phosphorus Level 2.8 MG/DL (2.5-4.9) Magnesium Level 2.1 MG/DL (1.8-2.4) Iron Level 26 ug/dL (50-175) L Total Iron Binding Capacity 321 ug/dL (250-450) Percent Iron Saturation 8 % (15-50) L Unsaturated Iron Binding 295 ug/dL (112-346) Ferritin 124 NG/ML (8-388) Total Bilirubin 1.0 MG/DL (0.2-1.0) Gamma Glutamyl Transpeptidase 171 U/L (5-85) H Aspartate Amino Transf (AST/SGOT) 38 U/L (15-37) H Alanine Aminotransferase (ALT/SGPT) 14 U/L (12-78) Alkaline Phosphatase 121 U/L (46-116) H Ammonia 46 umol/L (11-32) H Total Creatine Kinase 104 U/L (26-308) Troponin I 0.191 ng/mL (0.000-0.056) 0.120 ng/mL (0.000-0.056) Pro-B-Type Natriuretic Peptide 7364 pg/mL (0-125) H Total Protein 7.5 G/DL (6.4-8.2) Albumin 3.0 G/DL (3.4-5.0) L Globulin 4.5 g/dL Albumin/Globulin Ratio 0.7 (1.0-2.7) L Triglycerides Level 88 MG/DL (30-150) Cholesterol Level 147 MG/DL (< 200) LDL Cholesterol 103 mg/dL (<100) H HDL Cholesterol 29 MG/DL (40-60) L Cholesterol/HDL Ratio 5.1 (3.3-4.4) H Vitamin B12 Level 494 PG/ML (193-986) Folate 8.8 NG/ML (8.6-58.9) Thyroid Stimulating Hormone (TSH) 7.691 uiU/mL (0.358-3.740) Microbiology Date/Time Source Procedure Growth Status 08/15/18 00:15 Sputum Gram Stain - Final Complete 08/15/18 00:15 Sputum Sputum Culture - Final NORMAL UPPER RESPIRATORY YULIA PRESENT Complete Objective HEAD AND NECK: Positive JVD.BIPAP on. LUNGS: Decreased breath sounds as well as wheezes. Lungs have coarse rhonchi. CARDIOVASCULAR: Shows regular S1 and S2 with no gallop. Sternotomy intact ABDOMEN: Soft. EXTREMITIES: 1+ pitting edema. Madhav Leung MD Aug 17, 2018 15:24
--- NOTE | 2018-08-17 15:55 | Infectious Diseases Prog Note ---
Assessment/Plan Problems: (1) Cellulitis of both lower extremities Assessment & Plan: continue cefazolin empiric coverage for cellulitis , venous doppler ruled out DVT , keep legs elevated all the time while in bed (2) COPD (chronic obstructive pulmonary disease) Assessment & Plan: with possible exacerbation, continue inhalers , antibiotics and oxygen with neb treatment as needed (3) CHF exacerbation Assessment & Plan: continue diuretics as per cardiology (4) Fever Assessment & Plan: suspect due to the above, await blood culture x2 to rule out bacteremia , continue antibiotics , and tylenol as needed (5) Onychomycosis Assessment & Plan: continue lamisil for three months, this might be contributing factor to his cellulitis Subjective Constitutional: Reports: no symptoms HEENT: Reports: no symptoms Respiratory: Reports: dry cough Breasts: Reports: no symptoms Cardiovascular: Reports: no symptoms Gastrointestinal/Abdominal: Reports: no symptoms Genitourinary: Reports: no symptoms Neurologic: Reports: no symptoms Psychiatric: Reports: no symptoms Skin: Reports: no symptoms Endocrine: Reports: no symptoms Hematologic: Reports: no symptoms Musculoskeletal: Reports: no symptoms Allergies: Coded Allergies: No Known Allergies (Unverified , 02/28/16) Objective Vital Signs Last 24 Hour Vital Signs Date Time Temp Pulse Resp B/P (MAP) Pulse Ox O2 Delivery O2 Flow Rate FiO2 08/17/18 12:00 98.1 54 20 122/58 (79) 99 08/17/18 09:00 Nasal Cannula 4.0 08/17/18 08:56 68 157/79 08/17/18 08:55 157/79 08/17/18 08:00 97.2 68 20 157/79 (105) 96 08/17/18 08:00 4.0 08/17/18 08:00 80 08/17/18 07:42 55 22 99 Nasal Cannula 4.0 36 08/17/18 07:34 53 22 97 Nasal Cannula 4.0 36 08/17/18 04:20 96.9 60 20 137/78 (97) 97 08/17/18 04:00 77 08/17/18 03:59 4.0 08/17/18 00:00 98.4 62 19 144/71 (95) 98 08/17/18 00:00 71 08/16/18 21:00 56 131/61 08/16/18 21:00 Nasal Cannula 5.0 08/16/18 20:00 4.0 08/16/18 20:00 97.5 56 19 131/61 (84) 96 08/16/18 20:00 64 08/16/18 17:17 100 18 96 08/16/18 16:00 98.4 54 22 131/65 (87) 95 08/16/18 16:00 4.0 Height (Feet): 5 Height (Inches): 10.00 Weight (Pounds): 240 General Appearance: WD/WN, no acute distress HEENT: normocephalic, atraumatic, anicteric, mucous membranes moist, PERRL Respiratory/Chest: chest wall non-tender, no respiratory distress, no accessory muscle use, decreased breath sounds, expiratory wheezing Cardiovascular: normal peripheral pulses, normal rate, regular rhythm, no gallop/murmur, no JVD Abdomen: normal bowel sounds, soft, non tender, no organomegaly, non distended , no mass, no scars Genitourinary: normal external genitalia Extremities: no cyanosis, no clubbing Skin: no rash, no lesions, no ulcers Neurologic/Psychiatric: alert, oriented x 3, responsive Lymphatic: no neck adenopathy, no groin adenopathy Musculoskeletal: normal muscle bulk, no effusion Microbiology Date/Time Source Procedure Growth Status 08/15/18 00:15 Sputum Gram Stain - Final Complete 08/15/18 00:15 Sputum Sputum Culture - Final NORMAL UPPER RESPIRATORY YULIA PRESENT Complete Laboratory Tests Test 08/17/18 05:50 08/17/18 14:03 White Blood Count 7.7 K/UL (4.8-10.8) Red Blood Count 4.37 M/UL (4.70-6.10) L Hemoglobin 10.4 G/DL (14.2-18.0) L Hematocrit 33.7 % (42.0-52.0) L Mean Corpuscular Volume 77 FL (80-99) L Mean Corpuscular Hemoglobin 23.7 PG (27.0-31.0) L Mean Corpuscular Hemoglobin Concent 30.8 G/DL (32.0-36.0) L Red Cell Distribution Width 20.6 % (11.6-14.8) H Platelet Count 143 K/UL (150-450) L Mean Platelet Volume 7.4 FL (6.5-10.1) Neutrophils (%) (Auto) 49.3 % (45.0-75.0) Lymphocytes (%) (Auto) 34.6 % (20.0-45.0) Monocytes (%) (Auto) 12.3 % (1.0-10.0) H Eosinophils (%) (Auto) 2.7 % (0.0-3.0) Basophils (%) (Auto) 1.0 % (0.0-2.0) Sodium Level 143 MMOL/L (136-145) Potassium Level 2.9 MMOL/L (3.5-5.1) L Chloride Level 101 MMOL/L (98-107) Carbon Dioxide Level 39 MMOL/L (21-32) H Anion Gap 3 mmol/L (5-15) L Blood Urea Nitrogen 24 mg/dL (7-18) H Creatinine 1.6 MG/DL (0.55-1.30) H Estimat Glomerular Filtration Rate 42.9 mL/min (>60) Glucose Level 81 MG/DL (74-106) Hemoglobin A1c 5.7 % (4.3-6.0) Uric Acid 8.7 MG/DL (2.6-7.2) H Calcium Level 8.7 MG/DL (8.5-10.1) Phosphorus Level 2.8 MG/DL (2.5-4.9) Magnesium Level 2.1 MG/DL (1.8-2.4) Iron Level 26 ug/dL (50-175) L Total Iron Binding Capacity 321 ug/dL (250-450) Percent Iron Saturation 8 % (15-50) L Unsaturated Iron Binding 295 ug/dL (112-346) Ferritin 124 NG/ML (8-388) Total Bilirubin 1.0 MG/DL (0.2-1.0) Gamma Glutamyl Transpeptidase 171 U/L (5-85) H Aspartate Amino Transf (AST/SGOT) 38 U/L (15-37) H Alanine Aminotransferase (ALT/SGPT) 14 U/L (12-78) Alkaline Phosphatase 121 U/L (46-116) H Ammonia 46 umol/L (11-32) H Total Creatine Kinase 104 U/L (26-308) Troponin I 0.191 ng/mL (0.000-0.056) 0.120 ng/mL (0.000-0.056) Pro-B-Type Natriuretic Peptide 7364 pg/mL (0-125) H Total Protein 7.5 G/DL (6.4-8.2) Albumin 3.0 G/DL (3.4-5.0) L Globulin 4.5 g/dL Albumin/Globulin Ratio 0.7 (1.0-2.7) L Triglycerides Level 88 MG/DL (30-150) Cholesterol Level 147 MG/DL (< 200) LDL Cholesterol 103 mg/dL (<100) H HDL Cholesterol 29 MG/DL (40-60) L Cholesterol/HDL Ratio 5.1 (3.3-4.4) H Vitamin B12 Level 494 PG/ML (193-986) Folate 8.8 NG/ML (8.6-58.9) Thyroid Stimulating Hormone (TSH) 7.691 uiU/mL (0.358-3.740) Current Medications Medications (Trade) Dose Ordered Sig/[place] Route PRN Reason Start Time Stop Time Status Last Admin Dose Admin Acetaminophen (Tylenol) 650 mg Q4H PRN ORAL T>100.5 08/16/18 15:00 09/12/18 14:59 Albuterol/ Ipratropium (Albuterol/ Ipratropium) 3 ml Q4H PRN HHN Shortness of Breath 08/16/18 15:00 08/18/18 14:59 08/17/18 07:34 Aspirin (Ecotrin) 81 mg DAILY ORAL 08/17/18 09:00 09/13/18 08:59 08/17/18 08:56 Cefazolin Sodium 1 gm/Dextrose 55 ml @ 110 mls/hr Q8HR IVPB 08/16/18 14:00 08/23/18 13:59 08/17/18 13:08 Dextrose (Dextrose 50%) 25 ml Q30M PRN IV Hypoglycemia 08/16/18 14:45 09/12/18 17:44 Dextrose (Dextrose 50%) 50 ml Q30M PRN IV Hypoglycemia 08/16/18 14:45 09/12/18 17:44 Furosemide (Lasix) 40 mg EVERY 12 HOURS IV 08/16/18 21:00 09/15/18 20:59 08/17/18 08:56 Heparin Sodium (Porcine) (Heparin 5000 units/ml) 5,000 units EVERY 12 HOURS SUBQ 08/16/18 21:00 09/12/18 20:59 08/16/18 21:00 Lisinopril (Zestril) 10 mg Q12HR ORAL 08/17/18 21:00 09/16/18 20:59 Metoprolol Tartrate (Lopressor) 25 mg Q12HR ORAL 08/16/18 21:00 09/13/18 20:59 08/17/18 08:56 Nitroglycerin (Ntg) 0.4 mg Q5M PRN SL Prn Chest Pain 08/16/18 14:30 09/12/18 16:14 Ondansetron HCl (Zofran) 4 mg Q6H PRN IVP Nausea & Vomiting 08/16/18 15:00 09/12/18 14:59 Pantoprazole (Protonix) 40 mg DAILY ORAL 08/16/18 18:15 09/15/18 18:14 08/17/18 08:55 Polyethylene Glycol (Miralax) 17 gm DAILYPRN PRN ORAL Constipation 08/16/18 15:00 09/12/18 14:59 Potassium Chloride (K-Dur) 40 meq THREE TIMES A DAY ORAL 08/17/18 13:00 09/16/18 08:59 08/17/18 13:08 Promethazine HCl/ Codeine (Phenergan with Codeine) 5 ml Q4H PRN ORAL For Cough 08/16/18 15:00 09/13/18 14:59 Spironolactone (Aldactone) 25 mg BID ORAL 08/17/18 09:00 09/15/18 08:59 08/17/18 08:55 Tamsulosin HCl (Flomax) 0.4 mg BEDTIME ORAL 08/16/18 21:00 09/12/18 20:59 08/16/18 21:00 Temazepam (Restoril) 15 mg HSPRN PRN ORAL Insomnia 08/16/18 21:00 08/20/18 20:59 08/16/18 21:49 Terbinafine HCl (LamISIL) 250 mg DAILY ORAL 08/17/18 09:00 08/24/18 08:59 08/17/18 08:55 Theophylline (Dheeraj-Dur) 100 mg EVERY 12 HOURS ORAL 08/16/18 21:00 09/13/18 20:59 08/17/18 08:56 Dallas Matias M.D. Aug 17, 2018 15:55
[2018-08-17 16:00] VITALS: BP 129/73
--- NOTE | 2018-08-17 16:31 | Internal Med Progress Note ---
Subjective Date of Service: Aug 17, 2018 Physician Name FrankelLeonides Attending Physician Philip Holden MD Current Medications Medications (Trade) Dose Ordered Sig/[place] Route PRN Reason Start Time Stop Time Status Last Admin Dose Admin Acetaminophen (Tylenol) 650 mg Q4H PRN ORAL T>100.5 08/16/18 15:00 09/12/18 14:59 Albuterol/ Ipratropium (Albuterol/ Ipratropium) 3 ml Q4H PRN HHN Shortness of Breath 08/16/18 15:00 08/18/18 14:59 08/17/18 07:34 Aspirin (Ecotrin) 81 mg DAILY ORAL 08/17/18 09:00 09/13/18 08:59 08/17/18 08:56 Cefazolin Sodium 1 gm/Dextrose 55 ml @ 110 mls/hr Q8HR IVPB 08/16/18 14:00 08/23/18 13:59 08/17/18 13:08 Dextrose (Dextrose 50%) 25 ml Q30M PRN IV Hypoglycemia 08/16/18 14:45 09/12/18 17:44 Dextrose (Dextrose 50%) 50 ml Q30M PRN IV Hypoglycemia 08/16/18 14:45 09/12/18 17:44 Furosemide (Lasix) 40 mg EVERY 12 HOURS IV 08/16/18 21:00 09/15/18 20:59 08/17/18 08:56 Heparin Sodium (Porcine) (Heparin 5000 units/ml) 5,000 units EVERY 12 HOURS SUBQ 08/16/18 21:00 09/12/18 20:59 08/16/18 21:00 Lisinopril (Zestril) 10 mg Q12HR ORAL 08/17/18 21:00 09/16/18 20:59 Metoprolol Tartrate (Lopressor) 25 mg Q12HR ORAL 08/16/18 21:00 09/13/18 20:59 08/17/18 08:56 Nitroglycerin (Ntg) 0.4 mg Q5M PRN SL Prn Chest Pain 08/16/18 14:30 09/12/18 16:14 Ondansetron HCl (Zofran) 4 mg Q6H PRN IVP Nausea & Vomiting 08/16/18 15:00 09/12/18 14:59 Pantoprazole (Protonix) 40 mg DAILY ORAL 08/16/18 18:15 09/15/18 18:14 08/17/18 08:55 Polyethylene Glycol (Miralax) 17 gm DAILYPRN PRN ORAL Constipation 08/16/18 15:00 09/12/18 14:59 Potassium Chloride (K-Dur) 40 meq THREE TIMES A DAY ORAL 08/17/18 13:00 09/16/18 08:59 08/17/18 13:08 Promethazine HCl/ Codeine (Phenergan with Codeine) 5 ml Q4H PRN ORAL For Cough 08/16/18 15:00 09/13/18 14:59 Spironolactone (Aldactone) 25 mg BID ORAL 08/17/18 09:00 09/15/18 08:59 08/17/18 08:55 Tamsulosin HCl (Flomax) 0.4 mg BEDTIME ORAL 08/16/18 21:00 09/12/18 20:59 08/16/18 21:00 Temazepam (Restoril) 15 mg HSPRN PRN ORAL Insomnia 08/16/18 21:00 08/20/18 20:59 08/16/18 21:49 Terbinafine HCl (LamISIL) 250 mg DAILY ORAL 08/17/18 09:00 08/24/18 08:59 08/17/18 08:55 Theophylline (Dheeraj-Dur) 100 mg EVERY 12 HOURS ORAL 08/16/18 21:00 09/13/18 20:59 08/17/18 08:56 Allergies: Coded Allergies: No Known Allergies (Unverified , 02/28/16) ROS Limited/Unobtainable: No Constitutional: Reports: no symptoms HEENT: Reports: no symptoms Cardiovascular: Reports: no symptoms Respiratory: Reports: no symptoms Gastrointestinal/Abdominal: Reports: no symptoms Genitourinary: Reports: no symptoms Neurologic/Psychiatric: Reports: no symptoms Subjective 68 YO M admitted with shortness of breath. Now CHF and COPD exacerbation. Also cellulitis bilat lower extremities. Cover for Int Didier-Dr Holden. Tolerating nasal canula Objective Last Vital Signs Date Time Temp Pulse Resp B/P (MAP) Pulse Ox O2 Delivery O2 Flow Rate FiO2 08/17/18 12:00 98.1 54 20 122/58 (79) 99 08/17/18 09:00 Nasal Cannula 4.0 08/17/18 07:42 36 Laboratory Tests Test 08/17/18 05:50 08/17/18 14:03 White Blood Count 7.7 K/UL (4.8-10.8) Red Blood Count 4.37 M/UL (4.70-6.10) L Hemoglobin 10.4 G/DL (14.2-18.0) L Hematocrit 33.7 % (42.0-52.0) L Mean Corpuscular Volume 77 FL (80-99) L Mean Corpuscular Hemoglobin 23.7 PG (27.0-31.0) L Mean Corpuscular Hemoglobin Concent 30.8 G/DL (32.0-36.0) L Red Cell Distribution Width 20.6 % (11.6-14.8) H Platelet Count 143 K/UL (150-450) L Mean Platelet Volume 7.4 FL (6.5-10.1) Neutrophils (%) (Auto) 49.3 % (45.0-75.0) Lymphocytes (%) (Auto) 34.6 % (20.0-45.0) Monocytes (%) (Auto) 12.3 % (1.0-10.0) H Eosinophils (%) (Auto) 2.7 % (0.0-3.0) Basophils (%) (Auto) 1.0 % (0.0-2.0) Sodium Level 143 MMOL/L (136-145) Potassium Level 2.9 MMOL/L (3.5-5.1) L Chloride Level 101 MMOL/L (98-107) Carbon Dioxide Level 39 MMOL/L (21-32) H Anion Gap 3 mmol/L (5-15) L Blood Urea Nitrogen 24 mg/dL (7-18) H Creatinine 1.6 MG/DL (0.55-1.30) H Estimat Glomerular Filtration Rate 42.9 mL/min (>60) Glucose Level 81 MG/DL (74-106) Hemoglobin A1c 5.7 % (4.3-6.0) Uric Acid 8.7 MG/DL (2.6-7.2) H Calcium Level 8.7 MG/DL (8.5-10.1) Phosphorus Level 2.8 MG/DL (2.5-4.9) Magnesium Level 2.1 MG/DL (1.8-2.4) Iron Level 26 ug/dL (50-175) L Total Iron Binding Capacity 321 ug/dL (250-450) Percent Iron Saturation 8 % (15-50) L Unsaturated Iron Binding 295 ug/dL (112-346) Ferritin 124 NG/ML (8-388) Total Bilirubin 1.0 MG/DL (0.2-1.0) Gamma Glutamyl Transpeptidase 171 U/L (5-85) H Aspartate Amino Transf (AST/SGOT) 38 U/L (15-37) H Alanine Aminotransferase (ALT/SGPT) 14 U/L (12-78) Alkaline Phosphatase 121 U/L (46-116) H Ammonia 46 umol/L (11-32) H Total Creatine Kinase 104 U/L (26-308) Troponin I 0.191 ng/mL (0.000-0.056) 0.120 ng/mL (0.000-0.056) Pro-B-Type Natriuretic Peptide 7364 pg/mL (0-125) H Total Protein 7.5 G/DL (6.4-8.2) Albumin 3.0 G/DL (3.4-5.0) L Globulin 4.5 g/dL Albumin/Globulin Ratio 0.7 (1.0-2.7) L Triglycerides Level 88 MG/DL (30-150) Cholesterol Level 147 MG/DL (< 200) LDL Cholesterol 103 mg/dL (<100) H HDL Cholesterol 29 MG/DL (40-60) L Cholesterol/HDL Ratio 5.1 (3.3-4.4) H Vitamin B12 Level 494 PG/ML (193-986) Folate 8.8 NG/ML (8.6-58.9) Thyroid Stimulating Hormone (TSH) 7.691 uiU/mL (0.358-3.740) Microbiology Date/Time Source Procedure Growth Status 08/15/18 00:15 Sputum Gram Stain - Final Complete 08/15/18 00:15 Sputum Sputum Culture - Final NORMAL UPPER RESPIRATORY YULIA PRESENT Complete Intake and Output 08/16/18 08/17/18 18:59 06:59 Intake Total 480 ml Output Total 2500 ml 920 ml Balance -2020 ml -920 ml Intake Oral 480 ml Output Urine Total 2500 ml 920 ml Objective Objective GENERAL: The patient is a well-developed and well-nourished white male, On BiPAP. HEENT: Eyes, pupils equal and responsive to light and accommodation. Extraocular movements intact. NECK: Supple, No lymphadenopathy. CHEST: bilateral air entry, Diffuse wheezes in bilateral lung higgins. ABDOMEN: Soft, nontender, and nondistended. Positive bowel sounds. no rebound or guarding, morbid obesity. : Lainez cath EXTREMITIES: Negative for clubbing, cyanosis, +2 LE's edema. RECTAL AND GENITAL: Refused. NEUROLOGIC: Cranial nerves II through XII are grossly intact without focal deficits. Motor strength is 5/5 bilaterally. Assessment/Plan Assessment/Plan Assessment/Plan Assessment/Plan 1. Acute hypoxemic respiratory failure. 2. Acute on Chronic Congestive heart failure. 3. Coronary artery disease. 4. Cerebrovascular disease. 5. Morbid Obesity. 6. Hypokalemia. 7. COPD exacerbation 8. Cellulitis bilat lower extremities TREATMENT: 1. Shortness of breath. Most likely due to Acute congestive heart failure, on Lasix Drip. 2. Congestive heart failure/coronary artery disease. Cardiology, Dr. Madhav Leung and Pulmonary: Dr. Leroy, 3. Cerebrovascular disease. 4. Cellulitis of bilateral lower extremities-Continue IV cefazolin per ID 5. Code status: Full code 6. off BiPAP-see pulmonary note 7. DVT prophylaxis : Heparin SQ 8. Leonides Frankel MD Aug 17, 2018 16:31
--- NOTE | 2018-08-17 19:06 | NUR ---
NURSE NOTES: Pt received from ESTEFANY Cruz and ESTEFANY Calvert alert and oriented x4 with no s/s of acute distress. On 2L NC, no s/s of SOB, saturating at 97%. IV site asymptomatic and patent. Bed alarm on. Bed in lowest position, call light and belongings within reach.
--- NOTE | 2018-08-17 19:41 | NUR ---
HAND-OFF: Report given to ESTEFANY Hung. Patient is in stable condition. Endorsed plan of care.
[2018-08-17 20:00] VITALS: BP 137/73
[2018-08-17] MEDS: Lisinopril 10mg tab ORAL SCH (21:04)
[2018-08-17] MEDS: Tamsulosin 0.4mg cap ORAL SCH (21:04)
[2018-08-18] VITALS: BP 133/79
[2018-08-18 04:00] VITALS: BP 139/66
[2018-08-18] MEDS: ceFAZolin sod 1 GM in D5W 55 ML IVPB SCH (05:57)
--- NOTE | 2018-08-18 07:15 | NUR ---
HAND-OFF: Report given to ESTEFANY Cruz.
--- NOTE | 2018-08-18 07:17 | NUR ---
NURSE NOTES: Received report from ESTEFANY Hung. Patient is in stable condition. No acute distress/SOB noted. Patient denies any pain/discomfort at this time. Will continue plan of care.
[2018-08-18 08:00] VITALS: BP 130/74
[2018-08-18 08:01] LABS: BASOPHILS % (AUTO) 0.9 % (0.0-2.0); HEMATOCRIT 35.1 % (42.0-52.0); HEMOGLOBIN 10.4 G/DL (14.2-18.0); LYMPHOCYTES % (AUTO) 43.2 % (20.0-45.0); MEAN CORPUSCULAR VOLUME 78 FL (80-99); MONOCYTES % (AUTO) 11.1 % (1.0-10.0); NEUTROPHILS % (AUTO) 39.8 % (45.0-75.0); PLATELET COUNT 155 K/UL (150-450); RED BLOOD COUNT 4.49 M/UL (4.70-6.10); RED CELL DISTRIBUTION WIDTH 20.5 % (11.6-14.8); WHITE BLOOD COUNT 7.7 K/UL (4.8-10.8)
[2018-08-18] MEDS: Theophylline ER 100mg ORAL SCH (08:20)
[2018-08-18] MEDS: Spironolactone 25mg tab ORAL SCH (08:20)
[2018-08-18] MEDS: Lisinopril 10mg tab ORAL SCH (08:20)
[2018-08-18] MEDS: Aspirin EC 81mg tab ORAL SCH (08:20)
[2018-08-18 08:24] LABS: ANION GAP 7 mmol/L (5-15); BLOOD UREA NITROGEN 20 mg/dL (7-18); CALCIUM 9.2 MG/DL (8.5-10.1); CARBON DIOXIDE 36 MMOL/L (21-32); CHLORIDE 102 MMOL/L (98-107); CREATININE 1.5 MG/DL (0.55-1.30); POTASSIUM 3.5 MMOL/L (3.5-5.1); SODIUM 145 MMOL/L (136-145)
[2018-08-18] MEDS: Metoprolol 25mg tab ORAL SCH (08:27)
[2018-08-18] MEDS: Heparin 5000 units/ml inj SUBQ SCH (08:27)
--- NOTE | 2018-08-18 08:29 | NUR ---
REHAB [facility] PT NOTE CONSULT RECEIVED, YAZAN COMPLTED, PATIENT WILL BENEFIT FROM SKILLED PT DURING STAY FOR RETURN TO [facility]. RECOMMEND HOME PT AT [place]. PLAN OF CARE INITIATED. DANNI BURGESS PT DPT Addendum: 08/18/18 at 0829 by DANNI BURGESS PT Amended: Links added.
[2018-08-18 08:32] LABS: ALBUMIN 3.2 G/DL (3.4-5.0); ALKALINE PHOSPHATASE 130 U/L (46-116); ASPARTATE AMINO TRANSFERASE 29 U/L (15-37); BILIRUBIN,DIRECT 0.4 MG/DL (0.0-0.3); BILIRUBIN,TOTAL 1.1 MG/DL (0.2-1.0)
[2018-08-18 08:49] LABS: ALANINE AMINOTRANSFERASE 22 U/L (12-78)
--- NOTE | 2018-08-18 10:47 | Internal Med Progress Note ---
Subjective Date of Service: Aug 18, 2018 Physician Name Leonides Frankel Attending Physician Philip Holden MD Current Medications Medications (Trade) Dose Ordered Sig/[place] Route PRN Reason Start Time Stop Time Status Last Admin Dose Admin Acetaminophen (Tylenol) 650 mg Q4H PRN ORAL T>100.5 08/16/18 15:00 09/12/18 14:59 Albuterol/ Ipratropium (Albuterol/ Ipratropium) 3 ml Q4H PRN HHN Shortness of Breath 08/16/18 15:00 08/18/18 14:59 08/17/18 07:34 Aspirin (Ecotrin) 81 mg DAILY ORAL 08/17/18 09:00 09/13/18 08:59 08/18/18 08:20 Cefazolin Sodium 1 gm/Dextrose 55 ml @ 110 mls/hr Q8HR IVPB 08/16/18 14:00 08/23/18 13:59 08/18/18 05:57 Dextrose (Dextrose 50%) 25 ml Q30M PRN IV Hypoglycemia 08/16/18 14:45 09/12/18 17:44 Dextrose (Dextrose 50%) 50 ml Q30M PRN IV Hypoglycemia 08/16/18 14:45 09/12/18 17:44 Furosemide (Lasix) 40 mg EVERY 12 HOURS IV 08/16/18 21:00 09/15/18 20:59 08/18/18 08:19 Heparin Sodium (Porcine) (Heparin 5000 units/ml) 5,000 units EVERY 12 HOURS SUBQ 08/16/18 21:00 09/12/18 20:59 08/18/18 08:27 Lisinopril (Zestril) 10 mg Q12HR ORAL 08/17/18 21:00 09/16/18 20:59 08/18/18 08:20 Metoprolol Tartrate (Lopressor) 25 mg Q12HR ORAL 08/16/18 21:00 09/13/18 20:59 08/17/18 08:56 Nitroglycerin (Ntg) 0.4 mg Q5M PRN SL Prn Chest Pain 08/16/18 14:30 09/12/18 16:14 Ondansetron HCl (Zofran) 4 mg Q6H PRN IVP Nausea & Vomiting 08/16/18 15:00 09/12/18 14:59 Pantoprazole (Protonix) 40 mg DAILY ORAL 08/16/18 18:15 09/15/18 18:14 08/18/18 08:20 Polyethylene Glycol (Miralax) 17 gm DAILYPRN PRN ORAL Constipation 08/16/18 15:00 09/12/18 14:59 Potassium Chloride (K-Dur) 40 meq THREE TIMES A DAY ORAL 08/17/18 13:00 09/16/18 08:59 08/18/18 08:19 Promethazine HCl/ Codeine (Phenergan with Codeine) 5 ml Q4H PRN ORAL For Cough 08/16/18 15:00 09/13/18 14:59 Spironolactone (Aldactone) 25 mg BID ORAL 08/17/18 09:00 09/15/18 08:59 08/18/18 08:20 Tamsulosin HCl (Flomax) 0.4 mg BEDTIME ORAL 08/16/18 21:00 09/12/18 20:59 08/17/18 21:04 Temazepam (Restoril) 15 mg HSPRN PRN ORAL Insomnia 08/16/18 21:00 08/20/18 20:59 08/17/18 21:03 Terbinafine HCl (LamISIL) 250 mg DAILY ORAL 08/17/18 09:00 08/24/18 08:59 08/18/18 08:20 Theophylline (Dheeraj-Dur) 100 mg EVERY 12 HOURS ORAL 08/16/18 21:00 09/13/18 20:59 08/18/18 08:20 Allergies: Coded Allergies: No Known Allergies (Unverified , 02/28/16) ROS Limited/Unobtainable: No Constitutional: Reports: no symptoms HEENT: Reports: no symptoms Cardiovascular: Reports: no symptoms Respiratory: Reports: shortness of breath Gastrointestinal/Abdominal: Reports: no symptoms Genitourinary: Reports: no symptoms Neurologic/Psychiatric: Reports: no symptoms Subjective 68 YO M admitted with shortness of breath. Now CHF and COPD exacerbation. Also cellulitis bilat lower extremities. Cover for Int Didier-Dr Holden. Tolerating nasal canula Objective Last Vital Signs Date Time Temp Pulse Resp B/P (MAP) Pulse Ox O2 Delivery O2 Flow Rate FiO2 08/18/18 08:27 58 130/74 08/18/18 08:00 97.7 18 97 08/18/18 04:00 4.0 08/17/18 21:00 Nasal Cannula 08/17/18 07:42 36 Laboratory Tests Test 08/17/18 14:03 08/18/18 06:27 Troponin I 0.120 ng/mL (0.000-0.056) 0.089 ng/mL (0.000-0.056) White Blood Count 7.7 K/UL (4.8-10.8) Red Blood Count 4.49 M/UL (4.70-6.10) L Hemoglobin 10.4 G/DL (14.2-18.0) L Hematocrit 35.1 % (42.0-52.0) L Mean Corpuscular Volume 78 FL (80-99) L Mean Corpuscular Hemoglobin 23.2 PG (27.0-31.0) L Mean Corpuscular Hemoglobin Concent 29.7 G/DL (32.0-36.0) L Red Cell Distribution Width 20.5 % (11.6-14.8) H Platelet Count 155 K/UL (150-450) Mean Platelet Volume 7.8 FL (6.5-10.1) Neutrophils (%) (Auto) 39.8 % (45.0-75.0) L Lymphocytes (%) (Auto) 43.2 % (20.0-45.0) Monocytes (%) (Auto) 11.1 % (1.0-10.0) H Eosinophils (%) (Auto) 5.0 % (0.0-3.0) H Basophils (%) (Auto) 0.9 % (0.0-2.0) Sodium Level 145 MMOL/L (136-145) Potassium Level 3.5 MMOL/L (3.5-5.1) Chloride Level 102 MMOL/L (98-107) Carbon Dioxide Level 36 MMOL/L (21-32) H Anion Gap 7 mmol/L (5-15) Blood Urea Nitrogen 20 mg/dL (7-18) H Creatinine 1.5 MG/DL (0.55-1.30) H Estimat Glomerular Filtration Rate 46.3 mL/min (>60) Glucose Level 79 MG/DL (74-106) Calcium Level 9.2 MG/DL (8.5-10.1) Total Bilirubin 1.1 MG/DL (0.2-1.0) H Direct Bilirubin 0.4 MG/DL (0.0-0.3) H Aspartate Amino Transf (AST/SGOT) 29 U/L (15-37) Alanine Aminotransferase (ALT/SGPT) 22 U/L (12-78) Alkaline Phosphatase 130 U/L (46-116) H Total Protein 7.3 G/DL (6.4-8.2) Albumin 3.2 G/DL (3.4-5.0) L Microbiology Date/Time Source Procedure Growth Status 08/16/18 15:25 Blood Blood Culture - Preliminary NO GROWTH AFTER 24 HOURS Resulted 08/16/18 15:20 Blood Blood Culture - Preliminary NO GROWTH AFTER 24 HOURS Resulted Intake and Output 08/17/18 08/18/18 19:00 07:00 Intake Total 775 ml 230 ml Output Total 500 ml 700 ml Balance 275 ml -470 ml Intake Oral 720 ml 120 ml IV Total 55 ml 110 ml Output Urine Total 500 ml 700 ml Objective Objective GENERAL: The patient is a well-developed and well-nourished white male, On BiPAP. HEENT: Eyes, pupils equal and responsive to light and accommodation. Extraocular movements intact. NECK: Supple, No lymphadenopathy. CHEST: bilateral air entry, Diffuse wheezes in bilateral lung higgins. ABDOMEN: Soft, nontender, and nondistended. Positive bowel sounds. no rebound or guarding, morbid obesity. : Lainez cath EXTREMITIES: Negative for clubbing, cyanosis, +2 LE's edema. RECTAL AND GENITAL: Refused. NEUROLOGIC: Cranial nerves II through XII are grossly intact without focal deficits. Motor strength is 5/5 bilaterally. Assessment/Plan Assessment/Plan Assessment/Plan Assessment/Plan 1. Acute hypoxemic respiratory failure. 2. Acute on Chronic Congestive heart failure. 3. Coronary artery disease. 4. Cerebrovascular disease. 5. Morbid Obesity. 6. Hypokalemia. 7. COPD exacerbation 8. Cellulitis bilat lower extremities TREATMENT: 1. Shortness of breath. Most likely due to Acute congestive heart failure vs COPD exacerbation. 2. Congestive heart failure/coronary artery disease. Cardiology, Dr. Madhav Leung and Pulmonary: Dr. Leroy, 3. Cerebrovascular disease. 4. Cellulitis of bilateral lower extremities-Continue IV cefazolin per ID 5. Code status: Full code 6. Tolerating nasal canula-see pulmonary note 7. DVT prophylaxis : Heparin SQ Leonides Frankel MD Aug 18, 2018 10:47
--- NOTE | 2018-08-18 11:55 | NUR ---
TRANSFER TO FLOOR: Patient transferred to [facility]-. Removed athletic monitor. Report given to ESTEFANY Bonds. Inventory check done. Endorsed plan of care.
--- NOTE | 2018-08-18 11:56 | NUR ---
NURSE NOTES: received patient from Graham from TELE. Patient is alert and oriented x4. Denies any pain or discomfort.No congestion or wheezing. He is not short of breathe. Removed the oxygen. all belongings accounted for. Two RN checked the belongings. Dentures worn by patient. Re-orientation given tot he patient about the unit. Call light within reach, bed is in lowest position and locked.will continue plan of care.
[2018-08-18] MEDS ORDERED: THEOPHYLLINE A100 MG ORAL (11:58)
[2018-08-18] MEDS ORDERED: FLOMAX0.4 MG ORAL (11:58)
[2018-08-18] MEDS ORDERED: TERBINAFINE ORAL (11:58)
[2018-08-18] MEDS ORDERED: SPIRONOLACTONE25 MG ORAL (11:58)
[2018-08-18] MEDS ORDERED: LOPRESSOR25 M1 ORAL (11:58)
[2018-08-18] MEDS ORDERED: FUROSEMIDE80 M1 ORAL (11:58)
[2018-08-18 12:00] VITALS: BP 132/61
--- NOTE | 2018-08-18 12:02 | Pulmonology Progress Note ---
Assessment/Plan Problems: (1) Acute respiratory failure (2) CHF (congestive heart failure) (3) Acute bronchitis (4) COPD (chronic obstructive pulmonary disease) (5) HTN (hypertension) (6) CHF exacerbation Assessment/Plan diuresed 16 liters so far creatinine slightly less check troponin Echo reviewed, EF is 35% watch electrolytes monitor in teli respiratory treatment check electrolytes. dc home today Subjective ROS Limited/Unobtainable: No Constitutional: Reports: no symptoms HEENT: Repors: no symptoms Allergies: Coded Allergies: No Known Allergies (Unverified , 02/28/16) Objective Last 24 Hour Vital Signs Date Time Temp Pulse Resp B/P (MAP) Pulse Ox O2 Delivery O2 Flow Rate FiO2 08/18/18 09:00 Nasal Cannula 4.0 08/18/18 08:27 58 130/74 08/18/18 08:20 130/74 08/18/18 08:00 97.7 58 18 130/74 (92) 97 08/18/18 08:00 4.0 08/18/18 08:00 96 08/18/18 04:00 96.8 45 17 139/66 (90) 99 08/18/18 04:00 77 08/18/18 04:00 4.0 08/18/18 00:00 66 08/18/18 00:00 97.3 53 18 133/79 (97) 98 08/17/18 21:04 137/73 08/17/18 21:00 Nasal Cannula 4.0 08/17/18 21:00 51 137/73 08/17/18 20:00 67 08/17/18 20:00 97.9 51 18 137/73 (94) 99 08/17/18 20:00 4.0 08/17/18 16:00 98.2 64 20 129/73 (91) 99 08/17/18 16:00 4.0 08/17/18 16:00 65 Intake and Output 08/17/18 08/18/18 19:00 07:00 Intake Total 775 ml 230 ml Output Total 500 ml 700 ml Balance 275 ml -470 ml Intake Oral 720 ml 120 ml IV Total 55 ml 110 ml Output Urine Total 500 ml 700 ml General Appearance: WD/WN HEENT: normocephalic Respiratory/Chest: chest wall non-tender, lungs clear, normal breath sounds Cardiovascular: normal peripheral pulses, normal rate Abdomen: normal bowel sounds, no organomegaly Genitourinary: normal external genitalia Extremities: no clubbing Skin: no rash Microbiology Date/Time Source Procedure Growth Status 08/16/18 15:25 Blood Blood Culture - Preliminary NO GROWTH AFTER 24 HOURS Resulted 08/16/18 15:20 Blood Blood Culture - Preliminary NO GROWTH AFTER 24 HOURS Resulted Laboratory Tests 08/17/18 14:03: Troponin I 0.120H 08/18/18 06:27: Troponin I 0.089H, White Blood Count 7.7, Red Blood Count 4.49L, Hemoglobin 10.4L, Hematocrit 35.1L, Mean Corpuscular Volume 78L, Mean Corpuscular Hemoglobin 23.2L, Mean Corpuscular Hemoglobin Concent 29.7L, Red Cell Distribution Width 20.5H, Platelet Count 155, Mean Platelet Volume 7.8, Neutrophils (%) (Auto) 39.8L, Lymphocytes (%) (Auto) 43.2, Monocytes (%) (Auto) 11.1H, Eosinophils (%) (Auto) 5.0H, Basophils (%) (Auto) 0.9, Sodium Level 145, Potassium Level 3.5, Chloride Level 102, Carbon Dioxide Level 36H, Anion Gap 7, Blood Urea Nitrogen 20H, Creatinine 1.5H, Estimat Glomerular Filtration Rate 46.3, Glucose Level 79, Calcium Level 9.2, Total Bilirubin 1.1H, Direct Bilirubin 0.4H, Aspartate Amino Transf (AST/SGOT) 29, Alanine Aminotransferase ( ALT/SGPT) 22, Alkaline Phosphatase 130H, Total Protein 7.3, Albumin 3.2L Current Medications Medications (Trade) Dose Ordered Sig/[place] Route PRN Reason Start Time Stop Time Status Last Admin Dose Admin Acetaminophen (Tylenol) 650 mg Q4H PRN ORAL T>100.5 08/16/18 15:00 09/12/18 14:59 Albuterol/ Ipratropium (Albuterol/ Ipratropium) 3 ml Q4H PRN HHN Shortness of Breath 08/16/18 15:00 08/18/18 14:59 08/17/18 07:34 Aspirin (Ecotrin) 81 mg DAILY ORAL 08/17/18 09:00 09/13/18 08:59 08/18/18 08:20 Cefazolin Sodium 1 gm/Dextrose 55 ml @ 110 mls/hr Q8HR IVPB 08/16/18 14:00 08/23/18 13:59 08/18/18 05:57 Dextrose (Dextrose 50%) 25 ml Q30M PRN IV Hypoglycemia 08/16/18 14:45 09/12/18 17:44 Dextrose (Dextrose 50%) 50 ml Q30M PRN IV Hypoglycemia 08/16/18 14:45 09/12/18 17:44 Furosemide (Lasix) 40 mg EVERY 12 HOURS IV 08/16/18 21:00 09/15/18 20:59 08/18/18 08:19 Heparin Sodium (Porcine) (Heparin 5000 units/ml) 5,000 units EVERY 12 HOURS SUBQ 08/16/18 21:00 09/12/18 20:59 08/18/18 08:27 Lisinopril (Zestril) 10 mg Q12HR ORAL 08/17/18 21:00 09/16/18 20:59 08/18/18 08:20 Metoprolol Tartrate (Lopressor) 25 mg Q12HR ORAL 08/16/18 21:00 09/13/18 20:59 08/17/18 08:56 Nitroglycerin (Ntg) 0.4 mg Q5M PRN SL Prn Chest Pain 08/16/18 14:30 09/12/18 16:14 Ondansetron HCl (Zofran) 4 mg Q6H PRN IVP Nausea & Vomiting 08/16/18 15:00 09/12/18 14:59 Pantoprazole (Protonix) 40 mg DAILY ORAL 08/16/18 18:15 09/15/18 18:14 08/18/18 08:20 Polyethylene Glycol (Miralax) 17 gm DAILYPRN PRN ORAL Constipation 08/16/18 15:00 09/12/18 14:59 Potassium Chloride (K-Dur) 40 meq THREE TIMES A DAY ORAL 08/17/18 13:00 09/16/18 08:59 08/18/18 08:19 Promethazine HCl/ Codeine (Phenergan with Codeine) 5 ml Q4H PRN ORAL For Cough 08/16/18 15:00 09/13/18 14:59 Spironolactone (Aldactone) 25 mg BID ORAL 08/17/18 09:00 09/15/18 08:59 08/18/18 08:20 Tamsulosin HCl (Flomax) 0.4 mg BEDTIME ORAL 08/16/18 21:00 09/12/18 20:59 08/17/18 21:04 Temazepam (Restoril) 15 mg HSPRN PRN ORAL Insomnia 08/16/18 21:00 08/20/18 20:59 08/17/18 21:03 Terbinafine HCl (LamISIL) 250 mg DAILY ORAL 08/17/18 09:00 08/24/18 08:59 08/18/18 08:20 Theophylline (Dheeraj-Dur) 100 mg EVERY 12 HOURS ORAL 08/16/18 21:00 09/13/18 20:59 08/18/18 08:20 Dat Leroy MD Aug 18, 2018 12:02
[2018-08-18] MEDS ORDERED: Albuterol/Ipratropium 3ml neb HHN PRN (12:47)
[2018-08-18] MEDS ORDERED: Miralax 17gm pkt ORAL PRN (12:48)
[2018-08-18] MEDS ORDERED: Nitroglycerin Subl 0.4mg tab SL PRN (12:48)
[2018-08-18] MEDS ORDERED: Promethazine/Codeine 5ml UD ORAL PRN (12:48)
--- NOTE | 2018-08-18 13:00 | NUR ---
NURSE NOTES: Patient was seen by Dr. Leung and RN relayed troponin of 0.089. Dr. Leung said it is ok to go home since it is trending down and elevated troponin is due to renal failure.
--- NOTE | 2018-08-18 13:30 | NUR ---
NURSE NOTES: Patient's o2sat is 89-90% in room air. Patient denies shortness of breathe. Dr. Leroy came in and RN relayed in front of the patient and . said he can go home without oxygen since he has an inhaler.
--- NOTE | 2018-08-18 13:47 | Cardiac Electrophysiology PN ---
Assessment/Plan Assessment/Plan 1. Exacerbation of CHF. EF 35% with BNP>42760. The patient also has moderate tricuspid regurgitation and severe pulmonary hypertension with PA pressures of 70. On Lasix 40 iv bid, Metoprolol 25 bid, lisinopril, and Aldactone 25 bid 2. S/P CABG on aspirin and beta-porsha. 3. Hypertension. Stable 4. Severe pulmonary hypertension. 5. COPD, on Abx and albuterol per Dr. Leroy. 6. History of CVA in 2007. 7. Obesity. LISSETH RN Subjective Subjective Feeling better on Lasix . Transferred to nonmonitored bed. Objective Last 24 Hour Vital Signs Date Time Temp Pulse Resp B/P (MAP) Pulse Ox O2 Delivery O2 Flow Rate FiO2 08/18/18 12:00 98.2 61 18 132/61 (84) 97 08/18/18 09:00 Nasal Cannula 4.0 08/18/18 08:27 58 130/74 08/18/18 08:20 130/74 08/18/18 08:00 97.7 58 18 130/74 (92) 97 08/18/18 08:00 4.0 08/18/18 08:00 96 08/18/18 04:00 96.8 45 17 139/66 (90) 99 08/18/18 04:00 77 08/18/18 04:00 4.0 08/18/18 00:00 66 08/18/18 00:00 97.3 53 18 133/79 (97) 98 08/17/18 21:04 137/73 08/17/18 21:00 Nasal Cannula 4.0 08/17/18 21:00 51 137/73 08/17/18 20:00 67 08/17/18 20:00 97.9 51 18 137/73 (94) 99 08/17/18 20:00 4.0 08/17/18 16:00 98.2 64 20 129/73 (91) 99 08/17/18 16:00 4.0 08/17/18 16:00 65 Intake and Output 08/17/18 08/18/18 19:00 07:00 Intake Total 775 ml 230 ml Output Total 500 ml 700 ml Balance 275 ml -470 ml Intake Oral 720 ml 120 ml IV Total 55 ml 110 ml Output Urine Total 500 ml 700 ml Laboratory Tests Test 08/17/18 14:03 08/18/18 06:27 Troponin I 0.120 ng/mL (0.000-0.056) 0.089 ng/mL (0.000-0.056) White Blood Count 7.7 K/UL (4.8-10.8) Red Blood Count 4.49 M/UL (4.70-6.10) L Hemoglobin 10.4 G/DL (14.2-18.0) L Hematocrit 35.1 % (42.0-52.0) L Mean Corpuscular Volume 78 FL (80-99) L Mean Corpuscular Hemoglobin 23.2 PG (27.0-31.0) L Mean Corpuscular Hemoglobin Concent 29.7 G/DL (32.0-36.0) L Red Cell Distribution Width 20.5 % (11.6-14.8) H Platelet Count 155 K/UL (150-450) Mean Platelet Volume 7.8 FL (6.5-10.1) Neutrophils (%) (Auto) 39.8 % (45.0-75.0) L Lymphocytes (%) (Auto) 43.2 % (20.0-45.0) Monocytes (%) (Auto) 11.1 % (1.0-10.0) H Eosinophils (%) (Auto) 5.0 % (0.0-3.0) H Basophils (%) (Auto) 0.9 % (0.0-2.0) Sodium Level 145 MMOL/L (136-145) Potassium Level 3.5 MMOL/L (3.5-5.1) Chloride Level 102 MMOL/L (98-107) Carbon Dioxide Level 36 MMOL/L (21-32) H Anion Gap 7 mmol/L (5-15) Blood Urea Nitrogen 20 mg/dL (7-18) H Creatinine 1.5 MG/DL (0.55-1.30) H Estimat Glomerular Filtration Rate 46.3 mL/min (>60) Glucose Level 79 MG/DL (74-106) Calcium Level 9.2 MG/DL (8.5-10.1) Total Bilirubin 1.1 MG/DL (0.2-1.0) H Direct Bilirubin 0.4 MG/DL (0.0-0.3) H Aspartate Amino Transf (AST/SGOT) 29 U/L (15-37) Alanine Aminotransferase (ALT/SGPT) 22 U/L (12-78) Alkaline Phosphatase 130 U/L (46-116) H Total Protein 7.3 G/DL (6.4-8.2) Albumin 3.2 G/DL (3.4-5.0) L Microbiology Date/Time Source Procedure Growth Status 08/16/18 15:25 Blood Blood Culture - Preliminary NO GROWTH AFTER 24 HOURS Resulted 08/16/18 15:20 Blood Blood Culture - Preliminary NO GROWTH AFTER 24 HOURS Resulted Objective HEAD AND NECK: Positive JVD.BIPAP on. LUNGS: Decreased breath sounds as well as wheezes. Lungs have coarse rhonchi. CARDIOVASCULAR: Regular S1 and S2 with no gallop. Sternotomy intact ABDOMEN: Soft. EXTREMITIES: 1+ pitting edema. Madhav Leung MD Aug 18, 2018 13:47
--- NOTE | 2018-08-18 13:55 | NUR ---
NURSE NOTES: Patient was discharged to home since he refused to go to [facility]. Patient is alert and oriented x4.He really wanted to be discharged to home. Prior to discharge, patient's condition was stable. V/S stable. Denies SOB or chest pain. IV and ID was removed. discharge instruction given to the patient's including new medication and Rn instructed to follow up with his primary doctor for the medication as needed. Rn also instructed about s/s of hypokalemia, CHF, COPD. Skin intact, [facility] will follow up per Morenita pillowcase maker. Instructed to follow up with [facility]. Phone number given. staff escorted patient to the car. Given Meds from home.
[2018-08-18] MEDS ORDERED: ceFAZolin sod 1 GM in D5W 55 ML IVPB SCH (14:00)
--- NOTE | 2018-08-18 14:43 | NUR ---
*-* INSURANCE *-* ALL CLINICALS AND REVIEWS HAVE BEEN FAXED TO: [employer]: MIRI P- [phone] f- [phone]
--- NOTE | 2018-08-18 14:49 | Nephrology Progress Note ---
Assessment/Plan Problem List: (1) Acute renal failure Assessment: Cr lower (2) CHF exacerbation (3) COPD (chronic obstructive pulmonary disease) (4) Hypokalemia (5) HTN (hypertension) Assessment worsening renal faunction due to treatment of CHF and Cardiomyopathy Cr cristian to 1.7 Others: (1) Acute respiratory failure (2) CHF (congestive heart failure) (3) Acute bronchitis (4) COPD (chronic obstructive pulmonary disease) (5) HTN (hypertension) (6) CHF exacerbation Plan K supplement, adjust dose Zestril Optimize cardiac status avoid nephrotoxics monitor renal parameters per orders Subjective ROS Limited/Unobtainable: No Objective Objective Last 24 Hour Vital Signs Date Time Temp Pulse Resp B/P (MAP) Pulse Ox O2 Delivery O2 Flow Rate FiO2 08/18/18 12:00 98.2 61 18 132/61 (84) 97 08/18/18 09:00 Nasal Cannula 4.0 08/18/18 08:27 58 130/74 08/18/18 08:20 130/74 08/18/18 08:00 97.7 58 18 130/74 (92) 97 08/18/18 08:00 4.0 08/18/18 08:00 96 08/18/18 04:00 96.8 45 17 139/66 (90) 99 08/18/18 04:00 77 08/18/18 04:00 4.0 08/18/18 00:00 66 08/18/18 00:00 97.3 53 18 133/79 (97) 98 08/17/18 21:04 137/73 08/17/18 21:00 Nasal Cannula 4.0 08/17/18 21:00 51 137/73 08/17/18 20:00 67 08/17/18 20:00 97.9 51 18 137/73 (94) 99 08/17/18 20:00 4.0 08/17/18 16:00 98.2 64 20 129/73 (91) 99 08/17/18 16:00 4.0 08/17/18 16:00 65 Intake and Output 08/17/18 08/18/18 19:00 07:00 Intake Total 775 ml 230 ml Output Total 500 ml 700 ml Balance 275 ml -470 ml Intake Oral 720 ml 120 ml IV Total 55 ml 110 ml Output Urine Total 500 ml 700 ml Laboratory Tests 08/18/18 06:27: White Blood Count 7.7, Red Blood Count 4.49L, Hemoglobin 10.4L, Hematocrit 35.1L , Mean Corpuscular Volume 78L, Mean Corpuscular Hemoglobin 23.2L, Mean Corpuscular Hemoglobin Concent 29.7L, Red Cell Distribution Width 20.5H, Platelet Count 155, Mean Platelet Volume 7.8, Neutrophils (%) (Auto) 39.8L, Lymphocytes (%) (Auto) 43.2, Monocytes (%) (Auto) 11.1H, Eosinophils (%) (Auto) 5.0H, Basophils (%) (Auto) 0.9, Sodium Level 145, Potassium Level 3.5, Chloride Level 102, Carbon Dioxide Level 36H, Anion Gap 7, Blood Urea Nitrogen 20H, Creatinine 1.5H, Estimat Glomerular Filtration Rate 46.3, Glucose Level 79, Calcium Level 9.2, Total Bilirubin 1.1H, Direct Bilirubin 0.4H, Aspartate Amino Transf (AST/SGOT) 29, Alanine Aminotransferase (ALT/SGPT) 22, Alkaline Phosphatase 130H, Troponin I 0.089H, Total Protein 7.3, Albumin 3.2L Height (Feet): 5 Height (Inches): 10.00 Weight (Pounds): 239 General Appearance: no apparent distress Cardiovascular: bradycardia Respiratory/Chest: decreased breath sounds Abdomen: soft Objective no change Jadon Shukla MD Aug 18, 2018 14:49
[2018-08-18] MEDS ORDERED: Spironolactone 25mg tab ORAL SCH (18:00)
--- NOTE | 2018-08-18 19:03 | Infectious Diseases Prog Note ---
Assessment/Plan Problems: (1) Cellulitis of both lower extremities Assessment & Plan: may switch cefazolin empiric coverage to oral keflex to finish his course for cellulitis treatment for 10 days , venous doppler ruled out DVT , keep legs elevated all the time while in bed (2) COPD (chronic obstructive pulmonary disease) Assessment & Plan: with possible exacerbation, continue inhalers , antibiotics and oxygen with neb treatment as needed (3) CHF exacerbation Assessment & Plan: continue diuretics as per cardiology (4) Fever Assessment & Plan: suspect due to the above, resolved, blood culture x2 is NTD with no bacteremia , continue antibiotics , and tylenol as needed (5) Onychomycosis Assessment & Plan: continue lamisil for three months, this might be contributing factor to his cellulitis Assessment/Plan time of stamp doesn't reflect time patient was seen Subjective Constitutional: Reports: no symptoms HEENT: Reports: no symptoms Respiratory: Reports: no symptoms Breasts: Reports: no symptoms Cardiovascular: Reports: no symptoms Gastrointestinal/Abdominal: Reports: no symptoms Genitourinary: Reports: no symptoms Neurologic: Reports: no symptoms Psychiatric: Reports: no symptoms Skin: Reports: no symptoms Endocrine: Reports: no symptoms Hematologic: Reports: no symptoms Musculoskeletal: Reports: no symptoms Allergies: Coded Allergies: No Known Allergies (Unverified , 02/28/16) Objective Vital Signs Last 24 Hour Vital Signs Date Time Temp Pulse Resp B/P (MAP) Pulse Ox O2 Delivery O2 Flow Rate FiO2 08/18/18 12:00 98.2 61 18 132/61 (84) 97 08/18/18 09:00 Nasal Cannula 4.0 08/18/18 08:27 58 130/74 08/18/18 08:20 130/74 08/18/18 08:00 97.7 58 18 130/74 (92) 97 08/18/18 08:00 4.0 08/18/18 08:00 96 08/18/18 04:00 96.8 45 17 139/66 (90) 99 08/18/18 04:00 77 08/18/18 04:00 4.0 08/18/18 00:00 66 08/18/18 00:00 97.3 53 18 133/79 (97) 98 08/17/18 21:04 137/73 08/17/18 21:00 Nasal Cannula 4.0 08/17/18 21:00 51 137/73 08/17/18 20:00 67 08/17/18 20:00 97.9 51 18 137/73 (94) 99 08/17/18 20:00 4.0 Height (Feet): 5 Height (Inches): 10.00 Weight (Pounds): 239 General Appearance: WD/WN, no acute distress HEENT: normocephalic, atraumatic, anicteric, mucous membranes moist, PERRL Respiratory/Chest: chest wall non-tender, lungs clear, no respiratory distress , no accessory muscle use, decreased breath sounds Cardiovascular: normal peripheral pulses, normal rate, regular rhythm, no gallop/murmur, no JVD Abdomen: normal bowel sounds, soft, non tender, no organomegaly, non distended , no mass, no scars Extremities: no cyanosis, no clubbing Skin: no rash, no lesions, no ulcers Neurologic/Psychiatric: alert, oriented x 3, responsive Lymphatic: no neck adenopathy, no groin adenopathy Musculoskeletal: normal muscle bulk, no effusion Microbiology Date/Time Source Procedure Growth Status 08/16/18 15:25 Blood Blood Culture - Preliminary NO GROWTH AFTER 24 HOURS Resulted 08/16/18 15:20 Blood Blood Culture - Preliminary NO GROWTH AFTER 24 HOURS Resulted Laboratory Tests Test 08/18/18 06:27 White Blood Count 7.7 K/UL (4.8-10.8) Red Blood Count 4.49 M/UL (4.70-6.10) L Hemoglobin 10.4 G/DL (14.2-18.0) L Hematocrit 35.1 % (42.0-52.0) L Mean Corpuscular Volume 78 FL (80-99) L Mean Corpuscular Hemoglobin 23.2 PG (27.0-31.0) L Mean Corpuscular Hemoglobin Concent 29.7 G/DL (32.0-36.0) L Red Cell Distribution Width 20.5 % (11.6-14.8) H Platelet Count 155 K/UL (150-450) Mean Platelet Volume 7.8 FL (6.5-10.1) Neutrophils (%) (Auto) 39.8 % (45.0-75.0) L Lymphocytes (%) (Auto) 43.2 % (20.0-45.0) Monocytes (%) (Auto) 11.1 % (1.0-10.0) H Eosinophils (%) (Auto) 5.0 % (0.0-3.0) H Basophils (%) (Auto) 0.9 % (0.0-2.0) Sodium Level 145 MMOL/L (136-145) Potassium Level 3.5 MMOL/L (3.5-5.1) Chloride Level 102 MMOL/L (98-107) Carbon Dioxide Level 36 MMOL/L (21-32) H Anion Gap 7 mmol/L (5-15) Blood Urea Nitrogen 20 mg/dL (7-18) H Creatinine 1.5 MG/DL (0.55-1.30) H Estimat Glomerular Filtration Rate 46.3 mL/min (>60) Glucose Level 79 MG/DL (74-106) Calcium Level 9.2 MG/DL (8.5-10.1) Total Bilirubin 1.1 MG/DL (0.2-1.0) H Direct Bilirubin 0.4 MG/DL (0.0-0.3) H Aspartate Amino Transf (AST/SGOT) 29 U/L (15-37) Alanine Aminotransferase (ALT/SGPT) 22 U/L (12-78) Alkaline Phosphatase 130 U/L (46-116) H Troponin I 0.089 ng/mL (0.000-0.056) Total Protein 7.3 G/DL (6.4-8.2) Albumin 3.2 G/DL (3.4-5.0) Dallas Ortega M.D. Aug 18, 2018 19:03
[2018-08-18] MEDS ORDERED: Theophylline ER 100mg ORAL SCH (21:00)
[2018-08-18] MEDS ORDERED: Tamsulosin 0.4mg cap ORAL SCH (21:00)
[2018-08-18] MEDS ORDERED: Metoprolol 25mg tab ORAL SCH (21:00)
[2018-08-18] MEDS ORDERED: Heparin 5000 units/ml inj SUBQ SCH (21:00)
[2018-08-18] MEDS ORDERED: Lisinopril 10mg tab ORAL SCH (21:00)
[2018-08-19] MEDS ORDERED: Aspirin EC 81mg tab ORAL SCH (09:00)
--- NOTE | 2018-08-19 14:31 | Discharge Summary ---
Discharge Summary Discharge Summary _ DATE OF ADMISSION: 08/13/2018 DATE OF DISCHARGE: 08/18/2018 ADMITTING MD: Dr. Philip Holden DISCHARGED BY: Dr. Dat Leroy CONSULTANTS: Dr. Dat Shukla [facility] COU[facility]SE: Patient is a 68-year-old white male, who presented with chief complaint of shortness of breath and bilateral feet swelling. Symptoms started a week prior to admission. The patient began to have shortness of breath. The patient had increased bilateral foot swelling. Patient has a history of congestive heart failure, coronary artery disease, chronic obstructive pulmonary disease, CVA in 2007 and morbid obesity. On evaluation at the ED, blood work did not show any leukocytosis, hemoglobin was 10, hematocrit 32. Elevated to 1.5. BNP was 8408. Troponin was negative. EKG showed normal sinus rhythm with wide complex rhythm and prolonged QT. He was given Lasix as well as nitroglycerin. Chest x-ray showed moderate congestive heart failure. He was noted to have significant heart failure and was a started on BiPAP due to shortness of breath. He was then admitted for acute hypoxemic respiratory failure. He was given respiratory treatment. He was started on Levaquin. He was started on Lasix drip. Patient had echocardiogram that showed ejection fraction of 35%, moderate tricuspid regurgitation and severe pulmonary hypertension with PA pressure of 70. He was started on Coreg, he was given lisinopril and Aldactone. He was given aspirin. He was continued on Lipitor. He was placed on heparin for DVT prophylaxis. ID was consulted for evaluation of cellulitis of both lower extremities. Patient was noted to be afebrile, T-max 101.7. Blood culture was obtained. Antibiotics were switched to Ancef. He was noted to have onychomycosis and was started on Lamisil. He had worsening of renal function. There was a rise in creatinine level. Network Management Specialist was consulted. Patient had worsening renal function due to treatment for CHF and cardiomyopathy. Renal parameters were monitored. He was eventually tapered off BiPAP and was placed on nasal cannula. Lasix was transitioned to IV push twice daily. Venous duplex was negative for acute DVT. Ancef was transitioned to oral Keflex. Blood culture did not isolate any growth. She was recommended discharged to detention, however refused. Patient was eventually discharged home with home health. FINAL DIAGNOSES: Cellulitis of both lower extremities COPD with possible exacerbation Acute systolic CHF exacerbation Fever Onychomycosis Acute renal failure Acute bronchitis Hypokalemia Hypertension Severe pulmonary hypertension Status post CABG Morbid obesity Old CVA Hypokalemia Onychomycosis DISPOSITION: DC home with home health. DISCHARGE MEDICATIONS: Refer to Discharge Medication List. DISCHARGE INSTRUCTIONS: Follow-up in a week. I have been assigned to complete a discharge summary on this account, I was not involved with the patient's management. Radha Frausto NP Aug 19, 2018 14:31
== END 2018-08-18 14:00 | disposition home health service (06) | DRG 291 ==
LOC: EDBD 16:05 → EMR 16:25 → 2W 16:26 → EDBEDREQ 17:45 → 2E 08-16 14:15 → 4E 08-18 12:09
PROC: 5A09457 Assistance with Respiratory Ventilation, 24-96 Consecutive Hours, Continuous Positive Airway Pressure (ICD-10-PCS; principal; 2018-08-13)
DX: I11.0 Hypertensive heart disease with heart failure (principal); J96.01 Acute respiratory failure with hypoxia; L03.116 Cellulitis of left lower limb; L03.115 Cellulitis of right lower limb; J44.1 Chronic obstructive pulmonary disease with (acute) exacerbation; N17.9 Acute kidney failure, unspecified; J44.0 Chronic obstructive pulmonary disease with (acute) lower respiratory infection; I50.23 Acute on chronic systolic (congestive) heart failure; I25.10 Atherosclerotic heart disease of native coronary artery without angina pectoris; Z86.73 Personal history of transient ischemic attack (TIA), and cerebral infarction without residual deficits; E66.01 Morbid (severe) obesity due to excess calories; B35.1 Tinea unguium; J20.9 Acute bronchitis, unspecified; E87.6 Hypokalemia; I27.20 Pulmonary hypertension, unspecified; I36.1 Nonrheumatic tricuspid (valve) insufficiency
CPT/HCPCS: 36415; 36600; 71045; 80048; 80053; 80061; 80069; 80076; 82140; 82248; 82550; 82553; 82607; 82728; 82746; 82803; 82977; 83036; 83540; 83550; 83690; 83735; 83880; 84100; 84443; 84484; 84550; 85025; 85610; 85730; 86140; 86850; 86900; 86901; 87040; 87070; 87205; 93005; 93306; 93970; 94640; 94660; 94664; 96374; 99291; J7620; J8499